=== PATIENT | female | born 1950 | race Caucasian/White ===

== ENCOUNTER 2022-05-06 09:45 | Outpatient (RCR) | payer MEDICARE, BC, SELFPAY | END 2022-09-10 15:07 | disposition home or self-care (01) | PROVIDERS: PCP Family Medicine; Visit Provider Family Medicine | DX: M79.604 Pain in right leg (principal) | CPT/HCPCS: 97110 ==

== ENCOUNTER 2022-10-05 09:45 | Outpatient (RCR) | payer MEDICARE, BC, SELFPAY ==
--- NOTE | 2022-06-30 14:00 | PT.OPEX ---
PT [place] Outpatient Eval PT [facility] Outpatient Eval Start: 06/30/22 07:18 Freq: Status: Active Protocol: Document 06/30/22 13:55 NAHOMY (Rec: 06/30/22 13:59 [email or web address] [id number]) E-signed By Vicki Victor PT Physical Therapy Outpatient Evaluation Insurance Information Recert Due Date 09/22/22 Insurance Name Medicare B Medical Diagnosis Rt Shoulder Rotator Cuff Tendonitis Treating Diagnosis Rt Shoulder Pain, Reduced ease of ADL's and self cares Reduced repetitive Rt shoulder use Referring MD Dr Curt Saldana Subjective Subjective Kaye reports having pain again in her Rt shoulder since December of 2021. I did most of the work on our boat, as my was having some health issues. She denies any accident or incident which may have caused symptoms, but wear and tear/over use. Pain is constant but varies per task. Pain is increased with reaching overhead and back - like into back seat, reaching out to the side is not as bad, but seems like most movements hurt. It improves with rest, some self stretching and ice use. I take Tylenol. I can sleep unless I roll over onto either side. 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 I have a very difficult time painting. Cooking is difficult, as I cannot lift more than a few pounds very easily. Straining, lifting from stove, etc. Cleaning is difficult - but we have a cleaning person and my helps. Vacuum is the hardest. I do have some N/T and arthrtic pain in hands, but I have chronic neck issues, so more related to chronic pain vs shoulder issues. I am very active and this limits my participation in yoga (any weight into UE I cannot do). The pain follows the lateral aspect of shoulder and upper arm, as well as the inside of my elbow. Pain Comments Pain is Date of Last Physician Visit 06/22/22 Occupation Painting/artist so I would love to be able to paint at least 2 hours minimum per day (not weekends) Preferred Name Kaye Precautions Treatment Precautions/Contraindications PMHX of LBP with Laminectomy in 1999. Chronic CX Pain Lt shoulder Scope 2006 Weight Bearing Status Full Weight Bearing Therapy Limitations/Systems Review Vision Objective Range of Motion Rt involved shoulder AROM: FF 0-140 /ABD0-135 / ER 0-90 / IR 0-20 / EXT0-54 Rt shoulder PROM: WNL and pain free Lt shoulder AROM is WNL and pain free Strength Lt shoulder MMT normal 5/5 with the excepion of FF 4/5 Rt shoulder was 5/5 in neutral . Did not assess in gravity resisted planes due to pain Palpation Minimal hypertonicity at pect major/minor and UT Sensitive to moderate palpation pressure at biceps long head and supraspinatus tendons. Also at trigger points of med scap Balance & Gait Slightly reduced arm swing Rt shoulder Posture Good posture Sensation/Reflexes Normal biceps DTR, symmetric to Lt Assessment Assessment/Impression 71 yo with DX of Rt Shoulder Tendonitis per MRI reading from 06/18/22. She previously had a Rt Shoulder Arthroscopy with SAD/DCE limited Open RCR 08/21/2008 (and Lt shoulder RCR scope 2005). She arrived to dept this date via IND ambulation, slightly reduced arm swing Rt involved/dominant arm. She has limited AROM - grossly 50% of normal Rt shoulder, PROM is WNL and without pain. Good DTR. Sensitive to touch at supraspinatus tendon and biceps long head. Hypertonicity at UT, pect major and minor. She has good functional movement (IR) hand behind back to T12, but with moderate pain. Hand behind head (ER) is good, reaching to T2 only minimal pain. She will benefit from continued skilled physical therapy to provide education in progression of stretch/ strength and shoulder stability program. Thank you for this referral. Primary Functional Limitations Shoulder FF AROM 0-140, ABD 0- 135, IR 0-20 deg. Sharp shooting pain with AROM beyond noted ranges - associated with painting, cleaning, cooking, yoga, corey chi, dressing, cooking. Pain also with sleeping. Plan of Care Rehabilitation Potential Good Physical Therapy Goals In 4-6 visits, Kaye will be able to: 1. IND in HEP with emphasis on pace, alignment and reps/HOLD times 2. Reduced pain overall by at least 50% with all arm use 3. Don/doff clothing overhead without compensatory movements 4. Repetitive use of Rt UE for at least 2 hours light / mod use (painting, cooking) 5. Sleep up to 6 hours without awakening secondary to shoulder pain greater than 3/ 10 90% of the time. In 8-10 visits, Kaye will be able to: 1. [place] / Rt UE unlimited use for repetitive tasks of ADL's and home/self cares. 2. Return to PLOF with corey chi and yoga/UE weight bearing with ex and cleaning tasks. 3. Pain free full Normal AROM Rt shoulder Coordination/Communication With Referral Source Treatment Plan/Direct Interventions Ice/Cold/Vasopneumatic,Joint Mobilization,Manual Therapy, Neuromuscular Re-ed,Self-Care/ Home Management,Therapeutic Activities,Therapeutic Exercises Frequency/Duration 1X/Wk for 12 visits Patient Will Be Discharged From Therapy Completion of LTG(s),Skills Plateau,Independent w/HEP, Independently Progressing Evaluation Billing Untimed Code Treatment Minutes 25 Complexity Moderate Certification Information Initial Certification Date 06/30/22 Ending Certification Date 09/22/22 Provider Signature Shows Agreement With POC & Medical Necessity Physician Signature & Date Requested Please Sign/Date Here Physician Comment/Change : Physician NPI Number #
== END 2022-10-07 16:16 | disposition home or self-care (01) ==
PROVIDERS: PCP Family Medicine; Visit Provider Orthopaedic Surgery Sports Medicine
DX: M75.81 Other shoulder lesions, right shoulder (principal); Z51.89 Encounter for other specified aftercare
CPT/HCPCS: 97110; 97140; 97162

== ENCOUNTER 2023-12-20 10:25 | Emergency (ER) | payer MEDICARE, BC, SELFPAY ==
[2023-12-20 10:29] VITALS: BP 148/86; PULSE 89; RESP 18; TEMP 36.5; O2SAT 98; BMI 18.8
--- NOTE | 2023-12-20 10:54 | ED.GENADULT ---
HPI - General Adult General Chief complaint: Cough Stated complaint: cough,congestion Time Seen by Provider: 12/20/23 10:35 History of Present Illness HPI narrative: seen in urgent care over the weekend for cough. meds for pneum and sinus infection . continues to feel well, more tired , cough is loosening, no fevers. referred to ED by clinic. janee ortiz 73 year old woman presenting to the ER with concern of continued cough. Particular alarming is that she has a shoulder surgery on the left scheduled for 2 weeks from now. Really once whatever is going on ?knocked out?. She does note a history of ?bronchial pneumonia? and worried that this might be going on again. Did review records from when she was seen 3 days ago. Chest x-ray looked clear by my read. Was initiated on 5 days of doxycycline concern of potential pneumonia along with 3 days of 20 mg of prednisone daily with complaint of a pressure. She has been also taking ?Mucinex?. Did take a few doses of ?Sudafed?; the sounds to have been pseudoephedrine. Her coughing seems to be coming more from her chest. Does describe some Nathaniel's of coughing. She is just quite tired, fatigued and worried about this. Admits to having had poor sleep as well. Has not had a fever. Related Data Home Medications ?Medication ?Instructions ?Recorded ?Confirmed calcium carbonate 600 mg-vitamin 1 tab PO DAILY 06/22/22 12/18/23 D3 10 mcg (400 unit) tablet estradiol 0.075 mg/24 hr weekly 1 patch transdermal QWEEK 06/22/22 12/18/23 transdermal patch turmeric 400 mg capsule mg PO 06/22/22 12/18/23 vitamin B complex (B 1 tab PO QDAY 06/22/22 12/18/23 Complex-Vitamin B12 tablet) Previous Rx's ?Medication ?Instructions ?Recorded albuterol sulfate 90 mcg/actuation 2 inh inhalation QID PRN #1 ea 12/20/23 breath activated powder inhaler benzonatate 200 mg capsule 100 - 200 mg (0.5 - 1 x 200 mg) PO 12/20/23 TID PRN cough from throat #30 caps codeine 10 mg-guaifenesin 100 mg/5 5 - 10 ml PO Q4-6H PRN cough #120 12/20/23 mL oral liquid (Guaifenesin AC) mL doxycycline monohydrate 100 mg 100 mg PO DAILY 4 days #8 caps 12/20/23 capsule prednisone 20 mg tablet 20 mg PO DAILY #10 tabs 12/20/23 Allergies Allergy/AdvReac Type Severity Reaction Status Date / Time aspirin Allergy GI bleed Verified 12/18/23 14:24 celecoxib Allergy Headache Verified 12/18/23 14:24 ibuprofen Allergy GI bleed Verified 12/18/23 14:24 naproxen Allergy GI bleed Verified 12/18/23 14:24 NSAIDS (Non-Steroidal Allergy GI bleed Verified 12/18/23 14:24 Anti-Inflamma penicillin V Allergy Rash Verified 12/18/23 14:24 rofecoxib Allergy oral ulcers Verified 12/18/23 14:24 suture Allergy Verified 12/18/23 14:24 Review of Systems Status of ROS: Reports: 6 or more systems reviewed and unremarkable except as noted in History and below PFSH PFSH Medical History Benign tumor of breast ?D24.9 - Benign neoplasm of unspecified breast (ICD-10) Surgical History H/O hernia repair ?Z98.890 - Other specified postprocedural states (ICD-10) ?Z87.19 - Personal history of other diseases of the digestive system (ICD-10) History of back surgery ?Z98.890 - Other specified postprocedural states (ICD-10) History of total vaginal hysterectomy (TVH) ?Z90.710 - Acquired absence of both cervix and uterus (ICD-10) Status post arthroscopy of left shoulder (02/02/06) ?Z98.890 - Other specified postprocedural states (ICD-10) Status post arthroscopy of right shoulder (08/21/08) ?Z98.890 - Other specified postprocedural states (ICD-10) Family History Maternal Grandmother Bleeding disorder Mother Stroke Father Parkinson disease Social History Smoking Status: Former smoker What tobacco products do you use: cigarettes Smoking quit date/years: >15 years ago Do you use any of these nicotine containing products: None Second hand tobacco smoke exposure: No Are you now , , , , never or living with a partner: Social isolation score (0-1 are the most socially isolated patients): 1 Exam Narrative: Exam Narrative: Very pleasant. Intermittent small cough. Sounds congested in the nasopharynx. Little uncomfortable over the maxillary sinus laterally. TMs are clear. Lungs with some crepitus in the lower lung gustafson bilaterally. No wheeze on initial auscultation. Heart in regular rate and rhythm without murmur rub or gallop. Extremities are well perfused. Without edema. Oropharynx is moist. Trace cobblestoning in the posterior oropharynx. Neck is supple without lymphadenopathy. Const: Vital Signs, click to edit/add: Vital Signs - 24 hr 12/20/23 10:29 Temperature 97.7 F Pulse Rate [Right Pulse Oximeter] 89 Respiratory Rate 18 Blood Pressure [Ri ght Upper Arm] 148/86 H Pulse Oximetry 98 Oxygen Delivery Me thod Room Air Documenting provider has reviewed patient's vital signs: yes Course Vital Signs Vital signs: Initial Vital Signs Temperature 97.7 F 12/20/23 10:29 Temperature Source Temporal Artery Scan 12/20/23 10:29 Pulse Rate 89 12/20/23 10:29 Respiratory Rate 18 12/20/23 10:29 Blood Pressure 148/86 H 12/20/23 10:29 Blood Pressure Mean 106 H 12/20/23 10:29 Blood Pressure Position Sitting 12/20/23 10:29 Pulse Oximetry 98 12/20/23 10:29 Oxygen Delivery Method Room Air 12/20/23 10:29 Vital Signs Temperature 97.7 F 12/20/23 10:29 Pulse Rate 89 12/20/23 10:29 Respiratory Rate 18 12/20/23 10:29 Blood Pressure 148/86 H 12/20/23 10:29 Pulse Oximetry 98 12/20/23 10:29 Oxygen Delivery Method Room Air 12/20/23 10:29 Temperature 97.7 F 12/20/23 10:29 Pulse Rate 89 12/20/23 10:29 Respiratory Rate 18 12/20/23 10:29 Blood Pressure 148/86 H 12/20/23 10:29 Pulse Oximetry 98 12/20/23 10:29 Oxygen Delivery Method Room Air 12/20/23 10:29 Medications Administered Medications: Discontinued Medications Generic Name Dose Route Start Last Admin Trade Name Jake PRN Reason Stop Dose Admin Albuterol/Ipratropium 1 neb 12/20/23 11:19 12/20/23 11:37 Iprat-Albut 0.5-2.5 Mg/3 Ml Neb IH 12/20/23 11:20 1 neb ONCE ONE Administration Medical Decision Making MDM Narrative Medical decision making narrative: Certainly many potential causes for fatigue. Does appear to have a viral URI possible ?bronchitis?. Does have a nebulizer at home. Has not used it in ages. We can trial a nebulization and see if that helps her feel better helps with the cough a little bit. I think it some combination of inflammation in her lungs. Given new findings on auscultation here today would go ahead repeat chest x-ray. Check basic labs looking for electrolyte abnormalities or anemia or further evidence of infection. Did give a DuoNeb. Did seem to help on reassessment. Labs show elevated CRP but normal white count. Sodium slightly low at 131. This might be dilutional revealed on further conversation. Chest x-ray reviewed by me remains without clear infiltrate. Radiology over-read as below Study:?XRay-Chest PORTABLE-12/20/2023 12:08:50 PM Ordering Physician:KEVIN Final Report: INDICATION: COUGH, WEAKNESS. TECHNIQUE: Chest 1 view. COMPARISON: 12/18/23. FINDINGS: Cardiovascular and mediastinum: Cardiomediastinal silhouette is within normal limits. Lungs and pleural spaces: Lungs are clear. No evidence of pleural effusion. No pneumothorax identified. Bones and soft tissues: Unremarkable. IMPRESSION: No acute cardiopulmonary process identified. No significant interval change. No further events during time in the emergency department. See patient discharge plan further discussion/plan Lab Data Lab results reviewed: Yes I reviewed the patient's lab results Labs: Lab Results 12/20/23 12/20/23 Range/Units 12:56 Unknown WBC 10.48 (4.50-11.00) K/uL RBC 3.95 L (4.00-5.20) m/uL Hgb 13.1 (12.0-16.0) gm/dL Hct 38.7 (33.0-51.0) % MCV 98 (80-100) fL MCH 33 (26-34) pg MCHC 34 (32-36) gm/dL RDW Coeff of [place] 12.4 (11.5-15.5) % Plt Count 290 (140-440) K/uL Neut % (Auto) 90.5 H (42.0-72.0) % Lymph % (Auto) 6.6 L (20-44) % [place] % (Auto) 2.6 (0.0-11.0) % Eos % (Auto) 0.1 (0.0-7.0) % Baso % (Auto) 0.0 (0.0-3.0) % Neut # (Auto) 9.50 H (1.7-7.0) K/uL Lymph # (Auto) 0.70 L (0.90-2.90) K/uL [place] # (Auto) 0.30 (0.00-0.90) K/UL Eos # (Auto) 0.01 (0.00-0.50) K/uL Baso # (Auto) 0.00 (0.00-0.30) K/uL Abs Immat Gran (auto) 0.02 (0.00-0.30) K/uL Imm/Tot Granulo (auto) 0.2 % Sodium 131 L (135-149) mmol/L Potassium 3.6 (3.6-5.1) mmol/L Chloride 99 (96-114) mmol/L Carbon Dioxide 25 (20-32) mmol/L Anion Gap 7 (7-15) mEq/L BUN 13 (7-30) mg/dL Creatinine 0.5 (0.5-1.5) mg/dL Estimated Creat Clear 36.40 Estimated GFR 98 ml/min Glucose 148 H (60-115) mg/dL Calcium 9.5 (8.4-10.6) mg/dL C-Reactive Protein 2.6 H (0.5-1.0) mg/dL SARS-CoV-2 (PCR) Negative SARS-CoV-2 (Negative) Influenza Type A (PCR) Negative PCR FLU A (Negative) Influenza Type B (PCR) Negative PCR FLU B (Negative) RSV (PCR) Negative PCR RSV (Negative) Discharge Plan Discharge Clinical Impression: Hyponatremia, Bronchitis Patient Disposition: Home w/ Parent or Adult Condition: Stable Additional Instructions: I think it is good you are focusing on hydration. You shouldn't need to drink more than 2-3 L of water a day. I am not sure that your current intake is responsible for the lower sodium nor do I think that that sodium level is contributing to your fatigue. Take this nebulization tubing and cup with you. You can use it with your nebulizer and albuterol if you find it helpful. You can also nebulized distilled water just for the moist air; this also can help with cough. Consider use of menthol vapors otherwise. Half a tsp of honey can be helpful. Pseudoephedrine for drying and decongestion; this can also help with post-nasal drip. Sucking on ice chips can help with cough. Might sleep under the mist of a cool mist humidifier. Prescribing cough medicine, continuing course of prednisone and continuing course of doxycycline from [facility]. Take copies of your labs with you for follow-up/preop appointment. Prescriptions: New doxycycline monohydrate 100 mg capsule 100 mg PO DAILY 4 Days Qty: 8 0RF Rx Instructions: continue after current course prednisone 20 mg tablet 20 mg PO DAILY Qty: 10 0RF albuterol sulfate 90 mcg/actuation aerosol powdr breath activated 2 inh inhalation QID PRNQty: 1 0RF codeine-guaifenesin [Guaifenesin AC] 10-100 mg/5 mL liquid 5 - 10 ml PO Q4-6H PRN (Reason: cough) Qty: 120 0RF benzonatate 200 mg capsule 100 - 200 mg PO TID PRN (Reason: cough from throat) Qty: 30 0RF No Action estradiol 0.075 mg/24 hr patch weekly 1 patch transdermal QWEEK Patient Comments: APPLY 1 APPLY TO CLEAN,DRY HAIRLESS SKIN ONCE WEEKLY vitamin B complex [B Complex-Vitamin B12] Tablet 1 tab PO QDAY calcium carbonate-vitamin D3 600 mg-10 mcg (400 unit) tablet 1 tab PO DAILY turmeric 400 mg capsule PO Follow Up/Referrals: Rosmery Villeda DO [Primary Care Provider] - Stand Alone Forms: MyHealth Info Instructions
--- NOTE | 2023-12-20 11:19 | XR_ITS ---
Patient: SILVINO DIMAS Facility:?[facility] Patient ID:?[id number] Site Patient ID:?[id number]. Site :?[id number] Study:?XRay-Chest PORTABLE-12/20/2023 12:08:50 PM Ordering Physician:KEVIN Final Report: INDICATION: COUGH, WEAKNESS. TECHNIQUE: Chest 1 view. COMPARISON: 12/18/23. FINDINGS: Cardiovascular and mediastinum: Cardiomediastinal silhouette is within normal limits. Lungs and pleural spaces: Lungs are clear. No evidence of pleural effusion. No pneumothorax identified. Bones and soft tissues: Unremarkable. IMPRESSION: No acute cardiopulmonary process identified. No significant interval change. Dictated by Lexus Vanegas MD @ 12/20/2023 12:31:28 PM Signed by:?Lexus Vanegas MD @12/20/2023 12:31:28 PM (Electronic Signature)
--- OUTSIDE RECORDS SUMMARY | 2023-12-20 11:24 | XMS_ITS | Clinical Summary ---
Author Name Unknown Organization [facility] Address [address] [place] [address] Care Team Providers Care Senior It Business Analyst Name Role Phone Elsewhere, Pcp Primary Care Provider Unavailabl e Source Comments Patient records contain information from all sites at [facility]. For routine questions regarding patient records, call [phone] during business hours, M-F 8:00 AM - 5:00 PM Central Time. Record requests for emergency care only can be directed to [phone] at any time.[facility] Allergies Active Allergy Reactions Criticality Noted Date Comments Aspirin GI bleeding 03/05/2015 Celecoxib Headache Low 03/05/2015 Ibuprofen Other (see comments),GI bleeding High 10/31/2007 Asprin Asprin Naproxen GI bleeding High 03/05/2015 Nsaids (Non-Steroidal Anti-Inflammatory Drug) Other (see comments),GI bleeding High 03/05/2015 Penicillins Rash Low 10/31/2007 Rofecoxib Other (see comments) Low 03/05/2015 Medications Medication Sig Dispensed Refills Start Date End Date Status VITAMIN B COMPLEX ORAL Take 1 tablet by mouth daily. W/Vitamin C 12/03/2016 Active estradioL (CLIMARA) 0.075 mg/[address] 1 patch on the skin once a week. 07/11/2020 Active cholecalciferol (VITAMIN D3) 125 mcg (5,000 Unit) capsule Take 1 capsule by mouth daily. 07/20/2013 Active TURMERIC ORAL Take 500 mg by mouth daily. 06/14/2022 Active mometasone (ELOCON) 0.1 % cream Apply topically to affected area(s) once daily. 06/07/2022 Active diclofenac sodium (VOLTAREN) 1 % gel Apply topically daily as needed. Active [id number] C ORAL Take by mouth. 1000 mg calcium daily w/magnesium and zinc Active Active Problems Problem Noted Date Diagnosed Date Painful Total Joint Arthroplasty Initial 024 Pain Thumb Left 05/26/2021 Hypertension 08/29/2013 Encounters Date Type Department Care Team Description 10/06/2023 Orders Only Preoperative Evaluation Center in [place], [place] [address] [place] [address] Erum Greene MPAS, P.A.-C. Preanesthetic Medical Exam (Primary Dx) 10/06/2023 Orders Only Preoperative Evaluation Center in [place], [place] [address] [place] [address] Erum Greene MPAS, P.A.-C. Allergy Penicillin Antibiotic Personal History (Primary Dx) from Last 3 Months Immunizations Name Administration Dates Next Due HZV (ZOSTAVAX) 07/23/2013 Influenza Split 04/25/2013 Tdap 10/31/2007 Social History Tobacco Use Types Packs/Day Years Used Date Smoking Tobacco: Former Cigarettes Q uit: 1975 Passive Smoke Exposure: Past Smokeless Tobacco: Never Tobacco Cessation:Counseling Given: Not Answered Humiliation, Afraid, Rape, and Kick questionnair e Answer Date Recorded Within the last year, have y ou been afraid of your partner or ex-partner? No 10/04/2022 Within the last year, have y ou been humiliated or emotionally abused in other ways by your partner or ex-partner? No Within the last year, have y ou been kicked, hit, slapped, or otherwise physically hurt by your partner or ex-partner? No 10/04/2022 Within the last year, have y ou been raped or forced to have any kind of sexual activity by your partner or ex-partner? No 10/04/2022 Social Connection and Isolat ion Panel [NHANES] Answer Date Recorded In a typical week, how many times do you talk on the phone with family, friends, or neighbors? Once a week 10/04/2022 How often do you get togethe r with friends or relatives? Once a week 10/04/2022 How often do you attend chur ch or gnosticist services? 1 to 4 times per year 10/04/2022 Do you belong to any clubs o r organizations such as restorationist groups, unions, fraternal or athletic groups, or school groups? Yes 10/04/2022 How often do you attend meet ings of the clubs or organizations you belong to? More than 4 times per year 10/04/2022 Are you , , di vorced, , never , or living with a partner? 10/04/2022 AUDIT-C Answer Date Recorded Q1: How often do you have a drink containing alc ohol? 2-3 times a week 10/04/2022 Q2: How many drinks containi ng alcohol do you have on a typical day when you are drinking? 1 or 2 10/04/2022 Q3: How often do you have si x or more drinks on one occasion? Never 10/04/2022 Overall Financial Resource Strain (CARDIA) Answe r Date Recorded How hard is it for you to pa y for the very basics like food, housing, medical care, and heating? Not hard at all 10/04/2022 [facility] of Occupat ional Health - Occupational Stress Questionnaire Answer Date Recorded Do you feel stress - tense, restless, nervous, or anxious, or unable to sleep at night because your mind is troubled all the time - these days? Only a little 10/04/2022 Exercise Vital Sign Answer Date Recorde d On average, how many days pe r week do you engage in moderate to strenuous exercise (like a brisk walk)? 5 days 10/04/2022 On average, how many minutes do you engage in exercise at this level? 50 min 10/04/2022 Hunger Vital Sign Answer Date Recorded Within the past 12 months, y ou worried that your food would run out before you got the money to buy more. Never true 10/04/19 23 Within the past 12 months, t he food you bought just didn't last and you didn't have money to get more. Never true 10/04/2022 PRAPARE - Transportation Answer Date Re corded In the past 12 months, has l ack of transportation kept you from medical appointments or from getting medications? No 09/09 In the past 12 months, has l ack of transportation kept you from meetings, work, or from getting things needed for daily living? No 10/04/2022 Housing Stability Vital Sign Answer Abdi e Recorded In the last 12 months, was t here a time when you were not able to pay the mortgage or rent on time? No 10/04/2022 In the last 12 months, how many places have you lived? 1 10/04/2022 In the last 12 months, was t here a time when you did not have a steady place to sleep or slept in a residential (including now)? No 10/04/2022 Nutrition Answer Date Recorded Nutrition: EVOO Fat Source Yes 10/04 On average, how many serving s of fruits and vegetables do you eat per day (serving size is equal to 1 cup or approximately the size of a tennis ball)? 4-5 10/04/2022 Dental Answer Date Recorded Dental: Regular Dentist Yes 08/15/19 Employment Answer Date Recorded Employment status Retired 10/04/2022 Education Answer Date Recorded What is the highest level of school you have completed or the highest degree you have received? Master's degree (e.g., MA, MS, Kanwal, MEd, BUSINESS PERFORMANCE SPECIALIST, [employer]) 01/07/2021 Sex and Gender Information Value Date Recorded Sex Assigned at Female 04/03/2021 10:50 AM CDT Gender Identity Female 04/03/2021 10:50 AM CDT Sexual Orientation Not on file Last Filed Vital Signs Vital Sign Reading Time Taken Comments Blood Pressure 136/85 07/24/2013 8:45 AM JUDGE Vital sign result from Clinical Notes. Pulse 56 07/24/2013 8:45 AM JUDGE Vital sign result from Clinical Notes. Temperature - - Respiratory Rate - - Oxygen Saturation - - Inhaled Oxygen Concentration - - Weight 48.3 kg (106 lb 7.7 oz) 08/24/2016 10:03 AM JUDGE Vital sign result from CDM. Height 158 cm (5' 2.21) 08/24/2016 10: 03 AM JUDGE Vital sign result from CDM. Body Mass Index 19.35 08/24/2016 10:03 AM JUDGE Plan of Treatment Upcoming Encounters Date Type Department Care Team (Latest Contact Info) Description 12/30/2023 10:00 AM CDT Clinical Communication Virtual Review in [place], [place] [address] [place] [address] 01/03/2024 6:50 AM CDT Appointment Department of Laboratory Medicine and Pathology, [facility] in [place], [place] [address] [place] [phone] Erum Greene MPAS, P.A.-C. [address] [place] [phone] 01/03/2024 7:15 AM CDT Appointment Department of Radiology, [facility], in [place], [place] [address] [place] [phone] Snow Stewart M.D. [address] [place] [phone] 01/03/2024 8:15 AM CDT Office Visit Department of Orthopedic Surgery in [place], [place] [address] [place] [phone] Hector Gonzales M.D. [address] [place] [phone] 01/03/2024 9:00 AM CDT Comprehensive Visit Preoperative Evaluation Center in [place], [place] [address] [place] [phone] Snow Stewart M.D. [address] [place] [phone] 01/03/2024 10:30 AM CDT Appointment Department of Radiology, [facility], in [place], [place] [address] [place] [phone] Snow Stewart M.D. [address] [place] [phone] 01/03/2024 12:45 PM CDT Clinical Support Division of Allergic Diseases in [place], [place] [address] [place] [phone] Erum Greene, ABRIL, P.A.-C. [address] [place] [phone] 01/03/2024 1:30 PM CDT Comprehensive Visit Division of Allergic Diseases in [place], [place] [address] [place] [phone] Lynsey Aguillon M.D. [address] [place] [phone] 01/04/2024 9:37 AM CDT Hospital Encounter RST RO 02 4 AM ADMIT [address] [place] [phone] Hector Gonzales M.D. [address] [place] [phone] 01/04/2024 9:37 AM CDT - 01/04/2024 12:21 PM CDT Surgery RST RO MAIN OR [address] [place] [address] Hector Gonzales M.D. [address] [place] [phone] ARTHROPLASTY REPLACEMENT TOTAL SHOULDER Scheduled Procedures Name Priority Associated Diagnoses Date/Ti me ARTHROPLASTY REPLACEMENT TOTAL SHOULDER Painful Total Joint Arthroplasty Initial 01/04/2024 9:37 AM CDT Health Maintenance Due Date Last Done Comments Bone Density Scan (Osteoporo sis Screen) 1949 CT Colonography 1950 Cologuard 1950 FIT 1950 Hepatitis C Screening 1950 Office Visit for Blood Press ure Check / Re-check 1949 Depression Screening (Annual PHQ-2) 08/08/2023 Fall Risk Screen (Annual) 08/08/2023 COVID-19 Vaccine (2022-09 4 season) 2023 05/10/2023, 02/01/2023, 04/30/2022, Additional history exists Mammogram 08/02/2024 08/02/2023, 07/09, 11/13/2021, Additional history exists Fasting Glucose for Diabetes Screening 08/05/2026 08/05/2023, 10/22/2021, 05/07/2020, Additional history exists Colonoscopy 10/04/2029 10/04/2019, 08/2009 (Performed elsewhere) Colorectal Cancer Screening 10/04/2029 DTaP,Tdap,and Td Vaccines (3 - Td or Tdap) 06/12/2032 06/12/2022, 10/31/2007, 03/17/1998 Pneumococcal vaccine (65+ years) Completed 04/29/20, 02/19/2016 Zoster Vaccines Completed 01/15/2021, 06/09, 05/21/2014, Additional history exists Influenza Vaccine Completed 05/10/2023, , 06/03/2021, Additional history exists Procedures Procedure Name Priority Date/Time Associated Diagnosis Comments EXTI BASIC METABOLIC PANEL, S/P Routine 08/05/2023 9:37 AM JUDGE BI BREAST SCREENING BILATERAL WITH TOMOSYNTHESIS RAD - Routine (most inpatients and all outpatients) 08/02/2023 9:30 AM JUDGE from Last 3 Months or Most Recently Relevant to Health Maintenance Care Teams Senior It Business Analyst Relationship Specialty Start Date End Date Elsewhere, Pcp PCP - General Internal Medicine 10/01/22
--- OUTSIDE RECORDS SUMMARY | 2023-12-20 11:25 | XMS_ITS ---
Author Name Unknown Organization [facility] Address [address] [place] [address] Care Team Providers Care Senior Medical Technologist Name Role Phone Unavailable Unavailable Unavailable Surgery Details Not on file Complications Check Surgery Details section. Procedure Estimated Blood Loss Check Surgery Details section. Procedure Findings Check Surgery Details section. Procedure Specimens Taken Check Surgery Details section.
--- OUTSIDE RECORDS SUMMARY | 2023-12-20 11:25 | XMS_ITS | Encounter Summary ---
Author Name Unknown Organization [facility] Address [address] [place] [id number] Care Team Providers Care Licensed Land Surveyor Name Role Phone Elsewhere, Pcp Primary Care Provider Unavailabl e Encounter Details Date Type Department Care Team (Late st Contact Info) Description 10/06/2023 Orders Only Preoperative Evaluation Center in [place], [place] [address] [place] [phone] Erum Greene, ABRIL, P.A.-C. [address] [place] [phone] Preanesthetic Medical Exam (Primary Dx) Social History Tobacco Use Types Packs/Day Years Used Date Smoking Tobacco: Former Cigarettes Q uit: 1974 Passive Smoke Exposure: Past Smokeless Tobacco: Never Humiliation, Afraid, Rape, and Kick questionnair e [...] often do you attend chur ch or congregation services? 1 to 4 times per year 10/04/2022 Do you belong to any clubs o r organizations such as zoroastrianism groups, unions, fraternal or athletic groups, or [...] and heating? Not hard at all 10/04/2022 [facility] of Occupat ional Health - Occupational Stress [...] place to sleep or slept in a chcf (including now)? No 10/04/2022 Nutrition Answer Date [...] Master's degree (e.g., MA, MS, Kanwal, MEd, GAS CUTTER, TRICE) 01/07/2021 Sex and Gender Information Value Date Recorded Sex Assigned at Female 04/03/2021 10:50 AM CDT Gender Identity Female 04/03/2021 10:50 AM CDT Sexual Orientation Not on file documented as of this encounter Plan of Treatment Upcoming Encounters Date Type Department Care Team (Latest Contact Info) Description 12/30/2023 10:00 AM CDT Clinical Communication Virtual Review in [place], [place] [address] [place] [address] 01/03/2024 6:50 AM CDT Appointment Department of Laboratory Medicine and Pathology, [facility], in [place], [place] [address] [place] [phone] Erum Greene, LAURIS, P.A.-C. [address] [place] [phone] 01/03/2024 7:15 AM CDT Appointment Department of Radiology, [facility], in [place], [place] [address] [place] [address] Snow Stewart M.D. [address] [place] [phone] 01/03/2024 8:15 AM CDT Office Visit Department of Orthopedic Surgery in [place], [place] [address] [place] [phone] Hector Gonzales M.D. [address] [place] [phone] 01/03/2024 9:00 AM CDT Comprehensive Visit Preoperative Evaluation Center in [place], [place] [address] [place] [phone] Snow Stewart M.D. [address] [place] [phone] 01/03/2024 10:30 AM CDT Appointment Department of Radiology, [facility], in [place], [place] [address] [place] [address] Snow Stewart M.D. [address] [place] [phone] 01/03/2024 12:45 PM CDT Clinical Support Division of Allergic Diseases in [place], [place] [address] [place] [phone] Erum Greene MPAS, P.A.-C. [address] [place] [phone] 01/03/2024 1:30 PM CDT Comprehensive Visit Division of Allergic Diseases in [place], [place] [address] [place] [phone] Lynsey Aguillon M.D. [address] [place] [phone] 01/04/2024 9:37 AM CDT Hospital Encounter RST RO 02 4 AM ADMIT [address] [place] [address] Hector Gonzales M.D. [address] [place] [phone] 01/04/2024 9:37 AM CDT - 01/04/2024 12:21 PM CDT Surgery [facility] MAIN OR [address] [place] [address] Hector Gonzales M.D. [address] [place] [phone] ARTHROPLASTY REPLACEMENT TOTAL SHOULDER Scheduled Orders Name Type Priority Associated Diagnoses Orde r Schedule Type and Screen (with Reflex Antibody ID) Lab Routine Preanesthetic Medical Exam Expected: 10/06/2023, Expires: 10/05/2025 Scheduled Procedures Name Priority Associated Diagnoses Date/Ti me ARTHROPLASTY REPLACEMENT TOTAL SHOULDER Painful Total Joint Arthroplasty Initial 01/04/2024 9:37 AM CDT documented as of this encounter Visit Diagnoses Diagnosis Painful Total Joint Arthroplasty Initial- Primary Preanesthetic Medical Exam- Primary Painful Total Joint Arthroplasty Initial documented in this encounter Care Teams Licensed Land Surveyor Relationship Specialty Start Date End Date Elsewhere, Pcp PCP - General Internal Medicine 10/01/22 documented as of this encounter
--- OUTSIDE RECORDS SUMMARY | 2023-12-20 11:25 | XMS_ITS | Clinical Summary ---
Author Name Unknown [facility] Address [address] [place] [address] Care Team Providers Care Housekeeper And Laundry Assistant Name Role Phone Eleni Deleon MD Primary Care Provider U navailable Source Comments You are receiving this document as you are listed as the primary care provider,follow-up provider, or the patient has been referred to you for consultation.This is in compliance with the Medicare and[facility] EHR Incentive Program,which states Providers who transition their patient to another setting of careor provider of care or refers their patient to another provider of care shouldprovide summary care record for each transition of care or referral. [facility] Allerg[facility] Active Allergy Reactions Criticality Noted Date Comments Penicillins 04/11/2013 Medications Medication Sig Dispensed Refills Start Date End Date Status Ascorbic Acid (VITAMIN C OR) Take by mouth. 04/11/2013 Active ATENOLOL OR Take by mouth. 04/11/2013 Active Cyanocobalamin (VITAMIN B-12 OR) Take by mouth. 04/11/2013 Act jesica Calcium Citrate-Vitamin D (CALCITRATE/VITAMIN D OR) Take by mouth. 04/11/2013 Active cholecalciferol (AKA VITAMIN D3) 1000 UNITS tablet Take 1,000 Units by mouth daily (every 24 hours). 04/11/2013 Active omega-3 fatty acids (FISH OIL) 1000 MG capsule Take 1 capsule by mouth daily (every 24 hours). 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 Social History Tobacco Use Types Packs/Day Years Used Date Smoking Tobacco: Never Alcohol Use Standard Drinks/Week Comments Yes 0 (1 standard drink = 0.6 oz pur e alcohol) Sex and Gender Information Value Date Recorded Sex Assigned at Not on file Gender Identity Not on file Sexual Orientation Not on file Last Filed Vital Signs Vital Sign Reading Time Taken Comments Blood Pressure - - Pulse - - Temperature - - Respiratory Rate - - Oxygen Saturation - - Inhaled Oxygen Concentration - - Weight 46.7 kg (103 lb) 04/11/2013 2:58 PM CDT Height 161.3 cm (5' 3.5) 04/11/2013 2:58 PM CDT Body Mass Index 17.96 04/11/2013 2:58 PM CDT Plan of Treatment Health Maintenance Due Date Last Done Comments Colon Cancer Screening Plan Due 1950 Hep C Screening (Preventive Services) 1950 Medicare Annual Wellness Visit 1950 Mammogram 1950 Cholesterol 1994 Dexa 2014 COVID-19 Vaccine ( season) 2023 04/30/2022, 11/23/2021, 05/21/2021, Additional history exists Influenza (Season Ended) 2024 022, 06/03/2021, 05/07/2020, Additional history exists DTaP/Tdap/Td (3 - Tdap) 06/12/2032 06/12/20 22, 10/31/2007, 03/17/1998 Pneumococcal 65+ Yrs Completed 04/29/2017, 02/19/20 16 Zoster/Shingles Completed 01/15/2021, 06/09, 05/21/2014, Additional history exists HepA Aged Out No longer eligi ble based on patient's age to complete this topic HepB Aged Out No longer eligi ble based on patient's age to complete this topic Hib Aged Out No longer eligi ble based on patient's age to complete this topic IPV (Polio) Aged Out No longer eligi ble based on patient's age to complete this topic MCV4 Aged Out No longer eligi ble based on patient's age to complete this topic Care Teams Housekeeper And Laundry Assistant Relationship Specialty Start Date End Date Eleni Deleon MD PCP - General 03/21/13
--- OUTSIDE RECORDS SUMMARY | 2023-12-20 11:25 | XMS_ITS | Clinical Summary ---
Author Name Unknown Organization [facility] Address [place], [place] [address] Care Team Providers Care Supervisor Long Goods Name Role Phone Rosmery Villeda Primary Care Provider [phone] Allergies Active Allergy Reactions Criticality Noted Date Comments Aspirin GI Bleeding 03/05/2015 Celecoxib Headache Low 03/05/2015 Ibuprofen Bleeding 10/31/2007 Asprin Naproxen GI Bleeding High 03/05/2015 Nsaids (Non-Steroidal Anti-Inflammatory Drug) Bleeding 04/02/2015 Penicillins 10/31/2007 Rofecoxib Other - Describe In Comment Field Low 03/05/2015 Medications Medication Sig Dispensed Refills Start Date End Date Status vitamin B complex (B-COMPLEX VITAMIN) tablet Take 1 tablet by mouth once daily. 0 12/03/2016 Active calcium carbonate (CALCIUM 600) 600 mg calcium (1,500 mg) tablet Take 1,000 mg by mouth once daily with a meal. 0 11/19/2019 Active cholecalciferol (Vitamin D) 1,000 unit capsule Take 2,000 units by mouth once daily. 0 06/14/2022 Active medication order composer Tumeric capsule daily. Unsure of dose. 0 06/14/2022 Active estradiol 0.075 mg/24 hr (CLIMARA) 0.075 mg/24 hr patchIndications:Post menopausal syndrome APPLY TO CLEAN,DRY HAIRLESS SKIN ONCE WEEKLY 12 Patch 4 07/18/2023 Active Active Problems Problem Noted Date Diagnosed Date Asymmetrical sensorineural hearing loss 07/05/20 22 Flushing 01/12/2013 Vitamin D deficiency 06/29/2010 Routine general medical exam ination at a health care facility 06/16/2010 Overview: dexa normal 2006, recheck in 3-5 years. Minimal change 2010. Consider recheck in 5 years. Eleni Deleon M.D. 07/04/2012 2:17 PM Rectocele 06/16/2010 Elevated BP 06/16/2010 Papanicolaou smear of cervix with atypical squamous cells of undetermined significance (ASC-US) 10/31/2007 Overview: hpv negative 2009. Routine screening for follow up. Symptomatic menopausal or female climacteric sta jessica 10/31/2007 Resolved Problems Problem Noted Date Diagnosed Date Resolved Date Osteoarthrosis, unspecified whether generalized or localized, unspecified site 08/14/2008 Encounters Date Type Department Care Team Description 12/20/2023 Nurse Triage [facility] [address] [place] [address] Rosmery Villeda, Shortness Of Breath (Constant SHORTNESS OF BREATH at rest and exertional) from Last 3 Months Immunizations Name Administration Dates Next Due AMB Influenza, IIV3 (Age >=3 years)(Flu Clinic O nly) 04/25/2013,07/30/2009 COVID-19 vaccine (Moderna 100mcg/0.5mL) PF, MDV 05/21/2021 COVID-19 vaccine (Pfizer-Bio NTech 30mcg/0.3mL) 12YO+ ASHISH-SUCROSE PF, MDV 11/23/2021 COVID-19 vaccine (Pfizer-BioNTech 30mcg/0.3mL) P F, MDV 11/08/2020,10/07/2020 Influenza Virus, Unspecified 05/23/2002,06/27/20 01 Influenza, High-dose Inactivated 05/12/2016 Influenza, High-dose Quadrivalent Inactivated ,06/03/2021 Influenza, IIV3 (Age 6-35 mos) 07/30/2009 Influenza, IIV3 (Age >=3 years) 07/13/2005 Influenza, IIV4 05/21/2014,05/15/2014 Influenza, Inactivated AIIV4 (Age 65+ Years) Preserv Free 04/14/2022,05/07/2020 Influenza, Inactivated IIV3 (Age 65+ Years) Preserv Free 11/06/2018,04/29/2017 Pneumococcal Poly,23-Valent (Pneumovax) 04/29/20 17 Pneumococcal conj 13-Valent (Prevnar 13) 016 RSV, Recombinant ADJ Reconst ituted (Arexvy 120MCG/0.5mL) 07/01/2023 Rabies Vaccine 03/08/2015 Td (Age >=7 Years) 03/17/1998 Tdap 06/12/2022,10/31/2007 Zoster (Shingrix-RZV, recombinant) 01/15/2021, Zoster (Zostavax-ZVL, live) 05/21/2014, 3 Family History Medical History Relation Name Comments Hyperlipidemia Father Osteoporosis Mother Other Mother osteoporosis Hyperlipidemia Sister Other Sister osteopenia Cancer No Family History Cancer-breast No Family History Cancer-colon No Family History Cancer-ovarian No Family History Cancer-prostate No Family History Relation Name Status Comments Father Mother Sister Social History Tobacco Use Types Packs/Day Years Used Date Smoking Tobacco: Former Cigarettes Q uit: 08/08/1975 Smokeless Tobacco: Never Tobacco Cessation:Counseling Given: Yes Alcohol Use Standard Drinks/Week Comments Yes 0 (1 standard drink = 0.6 oz pur e alcohol) once a week PHQ-2 Answer Date Recorded PHQ-2 TOTAL SCORE 0 07/18/2023 Social Connections Answer Date Recorded Frequency of Communication with Friends and Fami ly Not on file 12/22/2022 Financial Resource Strain Answer Date R ecorded Difficulty of Paying Living Expenses 3 12/18/2021 Difficulty of Paying Living Expenses Not on file 12/18/2021 Food Insecurity Answer Date Recorded Worried About Running Out of Food in the Last Ye ar 1 12/18/2021 Transportation Needs Answer Date Record ed Lack of Transportation (Medical) 1 12/18/2021 Housing Stability Answer Date Recorded Unable to Pay for Housing in the Last Year 1 12/18/2021 Sex and Gender Information Value Date Recorded Sex Assigned at Female 06/21/2021 10:59 PM VIDEO EDITING INTERN Gender Identity Female 06/21/2021 10:59 PM VIDEO EDITING INTERN Sexual Orientation Straight 06/21/2021 10 :59 PM VIDEO EDITING INTERN Obstetrics History Para Term AB IAB SAB Ectopic Multiple Livin g Live Births 2 2 0 0 0 0 0 0 0 0 Date Outcome GA Total Labor Labor/2nd/3rd Weight Sex Delivery Anes PTL Suze A1 A5 Name Cl in Para Para Last Filed Vital Signs Vital Sign Reading Time Taken Comments Blood Pressure 138/70 07/18/2023 2:10 PM VIDEO EDITING INTERN man ual Pulse 73 07/18/2023 1:17 PM VIDEO EDITING INTERN Temperature 36.4 ??C (97.5 ??F) 10/19/2021 3:00 PM CD T Respiratory Rate - - Oxygen Saturation 100% 07/18/2023 1:17 PM VIDEO EDITING INTERN Inhaled Oxygen Concentration - - Weight 49 kg (108 lb) 07/18/2023 1:17 PM VIDEO EDITING INTERN Height 157.5 cm (5' 2) 07/18/2023 1:17 PM VIDEO EDITING INTERN Body Mass Index 19.75 07/18/2023 1:17 PM VIDEO EDITING INTERN Plan of Treatment Health Maintenance Due Date Last Done Comments Influenza for age 65+ 04/08/2024 05/10/2023 , 04/14/2022, 06/03/2021, Additional history exists BMI (ht and wt on same day) for age 18+ 07/18/2024 07/18/2023, 01/26/2023, 10/19/2021, Additional history exists Depression screening for age 12+ 07/18/2024 07/18/2023, 10/22/2021, 10/20/2021, Additional history exists Medicare Wellness for age 65+ 07/18/2024, 10/19/2021, 04/29/2017 Mammogram for age 45-75 08/02/2024 08/02/20 23, 11/13/2021, 03/28/2020, Additional history exists Lipids for age 45-75 08/05/2028 08/05/2023, 10/22/2021, 10/23/2019, Additional history exists Colonoscopy through age 75 10/04/202910/04, 10/04/2019, 10/04/2019, Additional history exists Tetanus booster 06/12/2032 06/12/2022, 10/07, 03/17/1998 DEXA/DXA scan for age 65+ Completed 2014, 04/13/2011, 07/25/2007, Additional history exists Pneumococcal series for age 65+ Completed 7, 02/19/2016 Fecal testing non-DNA (FIT,FOBT,iFOBT) for age 45-75 Discontinued 07/20/2018 (Completed o utside of Priya) Zoster (shingles) series for age 50+ Completed 01/15/2021, 06/30/2020, 05/21/2014, Additional history exists Hepatitis C screening for ag e 18-79 Completed 10/22/2021 Tdap Completed 06/12/2022, 10/31/2007 COVID-19 vaccine series Completed 05/10/20, 02/01/2023, 04/30/2022, Additional history exists Procedures Procedure Name Priority Date/Time Associated Diagnosis Comments LIPID PANEL W REFLEX MEASURED LDL Routine 08/05/2023 9:37 AM VIDEO EDITING INTERN Lipid screening XR MAMMO GEMMA BILAT SCREEN Routine 08/02/2023 9:30 AM VIDEO EDITING INTERN Breast cancer screening by mammogram ANTI HCV Routine 10/22/2021 9:27 AM CDT Need for hepatitis C screening test COLONOSCOPY SCREENING Routine 10/04/2019 10:59 AM VIDEO EDITING INTERN Screening for colon cancer XR DXA BONE DENSITY 2 SITES AXIAL Routine 02/18/2015 8:53 AM CDT Osteopenia from Last 3 Months or Most Recently Relevant to Health Maintenance Results * (ABNORMAL) LIPID PANEL W REFLEX MEASURED LDL (08/05/2023 9:37 AM VIDEO EDITING INTERN) CHOLESTEROL,TOTAL 341(H) 100 - 199 mg/dL 08/05/2023 6:52 PM VIDEO EDITING INTERN [facility] Comment: Cholesterol, Total Reference Ranges Desirable <200 mg/dL Borderline 200-239 mg/dL High >=240 mg/dL TRIGLYCERIDES 74 <150 mg/dL 08/05/2023 6:52 PM VIDEO EDITING INTERN [facility] HDL CHOLESTEROL 117 >40 mg/dL 6:52 PM VIDEO EDITING INTERN [facility] NON-HDL CHOLESTEROL 224(H) <145 mg/dl 08/05/2023 6:52 PM VIDEO EDITING INTERN [facility] CHOL/HDL RATIO 2.91 <4.50 08/05/2023 6:52 PM VIDEO EDITING INTERN [facility] LDL CHOLESTEROL 209(H) <=130 mg/dL 08/05/2023 6:52 PM VIDEO EDITING INTERN [facility] VLDL CHOLESTEROL 15 <=30 mg/dL 08/05/2023 6:52 PM VIDEO EDITING INTERN [facility] PROVIDER ORDERED STATUS RANDOM 08/05/2023 6:52 PM VIDEO EDITING INTERN [facility] Blood BLOOD SPECIMEN / Unknown Venipuncture / Unknown 08/05/2023 9:37 AM VIDEO EDITING INTERN 08/05/2023 9:37 AM VIDEO EDITING INTERN Rosmery Villeda DO CHEMISTRY [facility] [address] [place] [address], * XR MAMMO GEMMA BILAT SCREEN [[id number]] (08/02/2023 9:30 AM VIDEO EDITING INTERN) Anatomical Region Laterality Modality BREASTS, Breast Left, Breast Right Bilateral Mammography Impressions 08/02/2023 10:49 AM VIDEO EDITING INTERN ??There is no radiographic evidence for malignancy. ??Recommend annual mammograms. MAMMOGRAM ASSESSMENT: ??ACR 1 Negative PATIENTS: You will also receive a letter with your examination results in an easy to read format. ??If you have questions about your results, please contact your referring provider. Narrative 08/02/2023 10:49 AM VIDEO EDITING INTERN For Patients: As a result of the 21st Century Cures Act, medical imaging exams and procedure reports are released immediately into your electronic medical record. You may view this report before your referring provider. If you have questions, please contact your health care provider. XR MAMMO GEMMA BILAT SCREEN [[id number]] CLINICAL HISTORY: ??This is an asymptomatic 72 y.o. patient. INDICATION FOR EXAM: Mammogram Screening. TECHNIQUE: CC & MLO views were obtained. ??This study was evaluated with the assistance of Computer-Aided Detection. Breast Tomosynthesis was used in interpretation. COMPARISON FILM: Yes 11/13/21 [facility] 08/11/17 [facility] FINDINGS: ??The breasts are heterogeneously dense, which may obscure small masses. There are no dominant masses, suspicious micro calcifications or areas of architectural distortion. Rosmery Villeda DO MAMMO * ANTI HCV (10/22/2021 9:27 AM CDT) HEPATITIS C ANTIBODY Non-React jesica Non-React jesica 10/22/2021 4:44 PM CDT [facility] Comment:Antibodies to HCV no t detected; does not exclude the possibility of exposure to HCV. Blood BLOOD SPECIMEN / Unknown Venipuncture / Unknown 10/22/2021 9:27 AM CDT 10/22/2021 9:28 AM CDT Rosmery Villeda DO SEND OUTS [facility] [address] [place] [address], * COLONOSCOPY SCREENING (10/04/2019 10:59 AM VIDEO EDITING INTERN) Rosmery Villeda DO GI PROCEDURE ORD * (ABNORMAL) XR DXA BONE DENSITY 2 SITES (02/18/2015 8:53 AM CDT) Anatomical Region Laterality Modality Spine, HIPS, HIPL, HIPR Other Narrative 02/19/2015 11:38 AM CDT Please see scanned document for results of this study. Scotty Urrutia MD DEXA from Last 3 Months or Most Recently Relevant to Health Maintenance Care Teams Supervisor Long Goods Relationship Specialty Start Date End Date Rosmery [place] [address] PCP - General Family Practice 01/13/17
--- OUTSIDE RECORDS SUMMARY | 2023-12-20 11:25 | XMS_ITS | Referral Summary ---
Author Name Unknown Organization [facility] Address [address] [place] [address] Care Team Providers Care Nurse Consultant Name Role Phone Elsewhere, Pcp Primary Care Provider Unavailabl e Source Comments Patient records contain information from all sites at [facility]. For routine questions regarding patient records, call [phone] during business hours, M-F 8:00 AM - 5:00 PM Central Time. Record requests for emergency care only can be directed to [phone] at any time.[facility] Encounters Date Type Department Care Team Description 10/06/2023 Orders Only Preoperative Evaluation Center in [place], [place] [address] [place] [address] Erum Greene MPAS, P.A.-C. Preanesthetic Medical Exam (Primary Dx) 10/06/2023 Orders Only Preoperative Evaluation Center in [place], [place] [address] [place] [address] Erum Greene MPAS, P.A.-C. Allergy Penicillin Antibiotic Personal History (Primary Dx) from Last 3 Months Allergies Active Allergy Reactions Criticality Noted Date [...] gel Apply topically daily as needed. Active [id number] C ORAL Take by mouth. 1000 mg calcium daily w/magnesium and zinc Active Active Problems Problem Noted Date Diagnosed Date Painful Total Joint Arthroplasty Initial 024 Pain Thumb Left 05/26/2021 Hypertension 08/29/2013 Immunizations Name Administration Dates Next Due HZV [...] often do you attend chur ch or confucianism services? 1 to 4 times per year 10/04/2022 Do you belong to any clubs o r organizations such as caodaism groups, unions, fraternal or athletic groups, or [...] and heating? Not hard at all 10/04/2022 [facility] - Occupational Stress [...] place to sleep or slept in a custodial (including now)? No 10/04/2022 Nutrition Answer Date [...] Master's degree (e.g., MA, MS, Kanwal, MEd, ASBESTOS SHINGLE INSPECTOR, TRICE) 01/07/2021 Sex and Gender Information Value Date Recorded Sex Assigned at Female 04/03/2021 10:50 AM CDT Gender Identity Female 04/03/2021 10:50 AM CDT Sexual Orientation Not on file Last Filed Vital Signs Vital Sign Reading Time Taken Comments Blood Pressure 136/85 07/24/2013 8:45 AM SALES PLANNING MANAGER Vital sign result from Clinical Notes. Pulse 56 07/24/2013 8:45 AM SALES PLANNING MANAGER Vital sign result from Clinical Notes. Temperature - - Respiratory Rate - - Oxygen Saturation - - Inhaled Oxygen Concentration - - Weight 48.3 kg (106 lb 7.7 oz) 08/24/2016 10:03 AM SALES PLANNING MANAGER Vital sign result from CDM. Height 158 cm (5' 2.21) 08/24/2016 10: 03 AM SALES PLANNING MANAGER Vital sign result from CDM. Body Mass Index 19.35 08/24/2016 10:03 AM SALES PLANNING MANAGER Plan of Treatment Upcoming Encounters Date Type Department Care Team (Latest Contact Info) Description 12/30/2023 10:00 AM CDT Clinical Communication Virtual Review in [place], [place] [address] [place] [address] 01/03/2024 6:50 AM CDT Appointment Department of Laboratory Medicine and Pathology, [facility] in [place], [place] [address] [place] [phone] Erum Greene MPAS, P.A.-C. [address] [place] [phone] 01/03/2024 7:15 AM CDT Appointment [facility] in [place], [place] [address] [place] [phone] Snow Stewart M.D. [address] [place] [phone] 01/03/2024 8:15 AM CDT Office Visit Department of Orthopedic Surgery in [place], [place] [address] [place] [phone] Hector Gonzales M.D. [address] [place] [phone] 01/03/2024 9:00 AM CDT Comprehensive Visit Preoperative Evaluation Center in [place], [place] [address] [place] [phone] Snow Stewart M.D. [address] [place] [phone] 01/03/2024 10:30 AM CDT Appointment Department of Radiology, [facility] in [place], [place] [address] [place] [phone] Snow Stewart M.D. [address] [place] [phone] 01/03/2024 12:45 PM CDT Clinical Support Division of Allergic Diseases in [place], [place] [address] [place] [phone] Erum Greene, ABRIL, P.A.-C. [address] [place] [phone] 01/03/2024 1:30 PM CDT Comprehensive Visit Division of Allergic Diseases in [place], [place] [address] [place] [phone] Lynsey Aguillon M.D. [address] [place] [phone] 01/04/2024 9:37 AM CDT Hospital Encounter RST RO 02 4 AM ADMIT [address] [place] [phone] Hector Gonzales M.D. [address] [place] [phone] 01/04/2024 9:37 AM CDT - 01/04/2024 12:21 PM CDT Surgery RST RO MAIN OR [address] [place] [address] Hector Gonzales M.D. [address] [place] [phone] ARTHROPLASTY REPLACEMENT TOTAL SHOULDER Scheduled Procedures Name Priority Associated Diagnoses Date/Ti me ARTHROPLASTY REPLACEMENT TOTAL SHOULDER Painful Total Joint Arthroplasty Initial 01/04/2024 9:37 AM CDT Procedures Procedure Name Priority Date/Time Associated Diagnosis Comments EXTI BASIC METABOLIC PANEL, S/P Routine 08/05/2023 9:37 AM SALES PLANNING MANAGER BI BREAST SCREENING BILATERAL WITH TOMOSYNTHESIS RAD - Routine (most inpatients and all outpatients) 08/02/2023 9:30 AM SALES PLANNING MANAGER from Last 3 Months or Most Recently Relevant to Health Maintenance Care Teams Nurse Consultant Relationship Specialty Start Date End Date Elsewhere, Pcp PCP - General Internal Medicine 10/01/22
--- OUTSIDE RECORDS SUMMARY | 2023-12-20 11:25 | XMS_ITS | Encounter Summary ---
Author Name Unknown Organization [facility] Address [address] [place] [address] Care Team Providers Care Co Teacher Name Role Phone Elsewhere, Pcp Primary Care Provider Unavailabl e Reason for Referral * Outpatient (Routine) - Authorized Specialty Diagnoses / Procedures Referred By Contac t Referred To Contact Diagnoses Allergy Penicillin Antibiotic Personal History Procedures Penicillin Skin Test Erum Greene MPAS, P.A.-Gall[place] [address] [place] [phone] [facility] Referral ID Status Reason Start Date Expiration Date V isits Requested Visits Authorized [id number] Authorized 10/06/2023 10/05/2024 1 1 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 [address] [place] [phone] [facility] Referral ID Status Reason Start Date Expiration Date V isits Requested Visits Authorized [id number] Authorized 10/06/2023 04/06/2025 1 1 Scheduling Instructions HAIDER request - Please schedule before surgery [employer]ICIAN [employer]HOU[employer] Encounter Details Date Type Department Care Team (Late st Contact Info) Description 10/06/2023 Orders Only Preoperative Evaluation Center in [place], [place] [address] [place] [address] Erum Greene MPAS, P.A.-C. [address] [place] [address] Allergy Penicillin Antibiotic Personal History (Primary Dx) Social History Tobacco Use Types [...] 10/04/2022 How often do you attend chur or rastafari services? 1 to 4 times per year 10/04/2022 Do you belong to any clubs o r organizations such as synagogue groups, unions, fraternal or athletic groups, or [...] and heating? Not hard at all 10/04/2022 [facility] - Occupational Stress Questionnaire Answer Date Recorded [...] place to sleep or slept in a nursing home (including now)? No 10/04/2022 Nutrition Answer Date [...] Master's degree (e.g., MA, MS, Kanwal, MEd, MACHINE TOOL MECHANIC, TRICE) 01/07/2021 Sex and Gender Information Value Date Recorded Sex Assigned at Female 04/03/2021 10:50 AM CDT Gender Identity Female 04/03/2021 10:50 AM CDT Sexual Orientation Not on file documented as of this encounter Plan of Treatment Upcoming Encounters Date Type Department Care Team (Latest Contact Info) Description 12/30/2023 10:00 AM CDT Clinical Communication Virtual Review in [address] [phone] 01/03/2024 6:50 AM CDT Appointment Department of Laboratory Medicine and Pathology, [facility] in [address] [phone] Erum Greene, LAURIS, P.A.-C. [address] [place] [phone] 01/03/2024 7:15 AM CDT Appointment Department of Radiology, [facility] in [address] [phone] Snow Stewart M.D. [address] [place] [phone] 01/03/2024 8:15 AM CDT Office Visit Department of Orthopedic Surgery in [address] [phone] Hector Gonzales M.D. [address] [place] [phone] 01/03/2024 9:00 AM CDT Comprehensive Visit Preoperative Evaluation Center in [place], [place] [address] [place] [phone] Snow Stewart M.D. [address] [place] [phone] 01/03/2024 10:30 AM CDT Appointment Department of Radiology, [facility], in [place], [place] [address] [place] [phone] Snow Stewart M.D. [address] [place] [phone] 01/03/2024 12:45 PM CDT Clinical Support Division of Allergic Diseases in [place], [place] [address] [place] [phone] Erum Greene, [facility], P.A.-C. [address] [place] [phone] 01/03/2024 1:30 PM CDT Comprehensive Visit Division of Allergic Diseases in [place], [place] [address] [place] [phone] Lynsey Aguillon M.D. [address] [place] [phone] 01/04/2024 9:37 AM CDT Hospital Encounter RST ROEI 02 4 AM ADMIT [address] [place] [phone] Hector Goznales M.D. [address] [place] [phone] 01/04/2024 9:37 AM CDT - 01/04/2024 12:21 PM CDT Surgery [facility] MAIN OR [address] [place] [address] Hector Gonzales M.D. [address] [place] [address], [place] [phone] ARTHROPLASTY REPLACEMENT TOTAL SHOULDER Scheduled Orders Name Type Priority Associated Diagnoses Orde r Schedule Penicillin Skin Test Procedures Routine Allergy Penicillin Antibiotic Personal History Expected: 01/03/2024 (Approximate), Expires: 01/03/2025 Scheduled Procedures Name Priority Associated Diagnoses Date/Ti me ARTHROPLASTY REPLACEMENT TOTAL SHOULDER Painful Total Joint Arthroplasty Initial 01/04/2024 9:37 AM CDT Scheduled Referrals Name Type Priority Associated Diagnoses Order Schedule Allergy and Immunology - Penicillin allergy consult (clinic) Outpatient Referral Routine Allergy Penicillin Antibiotic Personal History Expected: 01/03/2024 (Approximate), Expires: 01/03/2025 documented as of this encounter Visit Diagnoses Diagnosis Painful Total Joint Arthroplasty Initial- Primary Allergy Penicillin Antibiotic Personal History- Primary Painful Total Joint Arthroplasty Initial documented in this encounter Care Teams Co Teacher Relationship Specialty Start Date End Date Elsewhere, Pcp PCP - General Internal Medicine 10/01/22 documented as of this encounter
[2023-12-20] MEDS: IPRAT-ALBUT 0.5-2.5 MG/3 ML NEB 1 NEB IH (11:37)
[2023-12-20 12:50] LABS: PCR FLU A Negative PCR FLU A (Negative); PCR FLU B Negative PCR FLU B (Negative); PCR RSV Negative PCR RSV (Negative); SARS PCR* Negative SARS-CoV-2 (Negative)
[2023-12-20 13:05] LABS: Eosinophils Absolute Auto 0.01 K/uL (0.00-0.50); Eosinophils Percent Auto 0.1 % (0.0-7.0); Hematocrit 38.7 % (33.0-51.0); Hemoglobin* 13.1 gm/dL (12.0-16.0); Immature Granulocytes Abs Auto 0.02 K/uL (0.00-0.30); Immature Granulocytes Pct Auto 0.2 %; Lymphocytes Percent Auto 6.6 % (20-44); Mean Corpuscular HGB Conc 34 gm/dL (32-36); Mean Corpuscular Hemoglobin 33 pg (26-34); Mean Corpuscular Volume 98 fL (80-100); Monocytes Percent Auto 2.6 % (0.0-11.0); Neutrophils Percent Auto 90.5 % (42.0-72.0); Platelet Count* 290 K/uL (140-440); RDW Coefficient of Variation % 12.4 % (11.5-15.5); Red Blood Count 3.95 m/uL (4.00-5.20); White Blood Count* 10.48 K/uL (4.50-11.00)
[2023-12-20 13:08] LABS: Slide Review Reflex No
[2023-12-20 13:19] LABS: Chloride* 99 mmol/L (96-114); Potassium* 3.6 mmol/L (3.6-5.1); Sodium* 131 mmol/L (135-149)
[2023-12-20 13:22] LABS: Creatinine* 0.5 mg/dL (0.5-1.5); Estimated Glomerular Filt Rate 98 ml/min
[2023-12-20 13:23] LABS: Anion Gap 7 mEq/L (7-15); Blood Urea Nitrogen* 13 mg/dL (7-30); Calcium* 9.5 mg/dL (8.4-10.6); Carbon Dioxide* 25 mmol/L (20-32); Glucose* 148 mg/dL (60-115)
[2023-12-20 13:26] LABS: C Reactive Protein* 2.6 mg/dL (0.5-1.0)
== END 2023-12-20 14:47 | disposition home or self-care (01) ==
PROVIDERS: Emergency Provider Family Medicine; PCP Family Medicine
DX: J02.0 Streptococcal pharyngitis (principal); E87.1 Hypo-osmolality and hyponatremia
CPT/HCPCS: 36415; 71045; 80048; 85025; 86140; 87631; 94640; 99284

== ENCOUNTER 2024-01-26 12:56 | Outpatient (CLI) | payer MEDICARE, BC, SELFPAY ==
--- OUTSIDE RECORDS SUMMARY | 2024-01-26 13:01 | XMS_ITS | Encounter Summary ---
Author Organization [facility] Address [address] [place] [address] Care Team Providers Care Historic Cl[employer] Costume Maker Name Role Phone Elsewhere, Pcp Primary Care Provider Unavailabl e Encounter Details Date Type Department Care Team (Late st Contact Info) Description 01/04/2024 7:43 AM CDT Anesthesia Event [facility] [address] [place] [address] Westley Nunez D.O. [address] [place] [address] Anesthesia Record Procedure Summary Procedure Name Responsible Anesthesiologist Anesthesia Start Time Anesthesia Stop Time ARTHROPLASTY REPLACEMENT TOTAL SHOULDER. (Right) Westley Nunez D.O. 01/04/24 0743 01/04/24 1015 Events Date Time Event Comment 01/04/2024 0743 An Start Machine/Equipme nt Checked Infection Precautions Followed Procedure/Site Verified NPO Status Verified Supine Standard ASA Monitors Applied 0748 Anesthesia Time Out 0752 Block Start 0755 Block End 0757 An Induction 0800 An Intubation 0801 Turnover to Proceduralist 0845 Proc Start 0853 Quick Note Surgical servic e leaning on BP cuff and patients airway. Notified multiple times by anesthesia 922 Anes CS Handoff I, Derek alexandra, TOBACCO BLENDER, CLIENT SERVICES ADMINISTRATOR, DNAP, attest that I have reconciled the controlled substances and that I have reviewed all the significant information with the next anesthesia provider assuming care of this patient. 45 Proc Fin 0955 Turnover to ANE Staff 1005 Airway Removal Criteria Met 1006 Extubation/Airway Removed 1008 an stop data 1015 An End I completed my handoff to the receiving staff during which we 1. Identified the patient 2. Identified the responsible provider 3. Reviewed the pertinent medical history 4. Discussed the surgical course 5. Reviewed intra-op anesthesia management and issues during anesthesia 6. Set expectations for post-procedure period 7. Allowed opportunity for questions and acknowledgement of understanding. Meds Name Total fentanyl injection 50 mcg/mL 100 mcg lidocaine 2% (mg) injection 60 mg rocuronium 10 mg/mL injection 30 mg succinylcholine 20 mg/mL injection 80 mg phenylephrine 100 mcg/mL injection 500 m cg ePHEDrine PF 5 mg/mL syringe injection 1 5 mg ondansetron 4 mg/2 mL injection 4 mg sugammadex 100 mg/mL injection 100 mg glycopyrrolate 0.2 mg/mL injection 0.2 m g propofol 10 mg/mL infusion 375.56 mg propofol 10 mg/mL injection 120 mg midazolam 1 mg/mL injection 1 mg BUPivacaine (MARCAINE) PF injection 0.5% 5 mL BUPivacaine liposome (EXPAREL) PF inject ion 1.3% 10 mL tranexamic acid in NaCl IVPB 1,000 mg (C YKLOKAPRON) 1 g tranexamic acid in NaCl IVPB 1,000 mg (C YKLOKAPRON) 1 g dexAMETHasone (DECADRON) injection 4 mg/ mL 8 mg ceFAZolin injection 2,000 mg (ANCEF) 2 g Lactated Ringers Free Drip 800 mL * Agents No agents on file. * Blood No blood administrations on file. Lines, Drains, and Airways Type Details Placement Removal Peripheral IV Placement Date: 12/07 05/01; Placement Time: 726; Catheter Size: 20 G; Orientation: Left; Location: Hand 01/04/24726 by Derek Oliver, CHRIS, ANNAMARIA, DNAP Wound 01/04/24; 936; N; I ncision; Shoulder; Anterior, Right 01/04/24936 by Nathaniel Ivey, R.N. documented in this encounter Social History Tobacco Use Types Packs/Day Years Used Date Smoking Tobacco: Former Cigarettes 0.5 6.8 0 10/07/1967 - 06/22/1976 Passive Smoke Exposure: Past Smokeless Tobacco: Never Comments:Situational in late teens early 20s except pregnancies Alcohol Use Standard Drinks/Week Comments Yes 2 (1 standard drink = 0.6 oz pur e alcohol) [facility] Utilities Answer Date Recorded In the past 12 months has th e electric, gas, oil, or water company threatened to shut off services in your home? No 12/27/2023 Humiliation, Afraid, Rape, and Kick questionnair e [...] often do you attend chur ch or yazidi services? 1 to 4 times per year 10/04/2022 Do you belong to any clubs o r organizations such as anglican groups, unions, fraternal or athletic groups, or [...] and heating? Not hard at all 10/04/2022 [facility] [place] of Occupat ional Health - Occupational Stress [...] to strenuous exercise (like a brisk walk)? 7 days 12/27/2023 On average, how many minutes do you engage in exercise at this level? 60 min 12/27/2023 Hunger Vital Sign Answer Date Recorded Within the past 12 months, y ou worried that your food would run out before you got the money to buy more. Never true 12/27/19 24 Within the past 12 months, t he food you bought just didn't last and you didn't have money to get more. Never true 12/27/2023 PRAPARE - Transportation Answer Date Re corded In the past 12 months, has l ack of transportation kept you from medical appointments or from getting medications? No 12/07 In the past 12 months, has l ack of transportation kept you from meetings, work, or from getting things needed for daily living? No 12/27/2023 Nutrition Answer Date Recorded On average, how many serving s of fruits and vegetables do you eat per day (serving size is equal to 1 cup or approximately the size of a tennis ball)? 3-5 12/27/2023 Dental Answer Date Recorded Dental: Regular Dentist Yes 08/15/19 Employment Answer Date Recorded Employment status Retired 12/27/2023 Housing Stability Answer Date Recorded What is your living situation today? I [address] a [place] [address] to live 12/27/2023 Education Answer Date Recorded What is the highest level of school you have completed or the highest degree you have received? Master's degree (e.g., MONY, MS, Kanwal, MEd, JAILER [employer]IE[employer], TRICE) 01/07/2021 Sex and Gender Information Value Date Recorded Sex Assigned at Female 04/03/2021 10:50 AM CDT Gender Identity Female 04/03/2021 10:50 AM CDT Sexual Orientation Not on file documented as of this encounter OR Notes * Anesthesia Postprocedure Evaluation - Samina Mary M.D. - 01/04/2024 10:51 AM CDT Patient: Taisha Ramos Procedure Summary Date: 01/04/24 Room / Location: [place] [address] / [facility] in [place], [place] Anesthesia Start: 742 Anesthesia Stop: 101 Procedure: ARTHROPLASTY REPLACEMENT TOTAL SHOULDER. (Right) Diagnosis: Painful Total Joint Arthroplasty Initial (Painful Total Joint Arthroplasty Initial [T84.84XA, Z96.60].) Providers: Hector Gonzales M.D. Responsible Provider: Westley Nunez D.O. Anesthesia Type: general ASA Status: 2 Anesthesia Type: general Last vitals Vitals Value Taken Time BP 99/66 01/04/24 1045 Temp 36.4 ??C 01/04/24 1015 Pulse 80 01/04/24 1051 Resp 19 01/04/24 1051 SpO2 95 % 01/04/24 1051 Vitals shown include unfiled device data. Please reference Vitals flowsheet for most recent vital signs. Anesthesia Post Evaluation Patient Disposition: general care unit Cardiovascular status: hemodynamics (HR & BP) acceptable Respiratory status: patent airway with spontaneous effort Temperature: normothermic Oxygen requirements: room air Level of consciousness: awake Pain score: pain adequately controlled and/or at baseline Post Op nausea/vomiting: none Hydration status: euvolemic * Anesthesia Procedure Notes - Ang Aguayo M.D. - 01/04/2024 8:09 AM CDT Associated Order(s): Regional Block Regional Block Date/Time: 01/04/2024 7:52 AM Performed by: Ang Aguayo M.D. Authorized by: Westley Nunez D.O. Care team members present 1. Westley Nunez D.O. Location: Pre Op / PACU PROCEDURE DETAILS: Block Indication: post-op pain block Block indication comment: Post-Op pain block at request of surgeon Block Type - Upper extremity: interscalene Positioning: supine Laterality: right Block technique: ultrasound guided Ultrasound image guidance used to localize target, identify at risk structures, and dynamically used to direct therapy to the target. Procedure was performed under sterile conditions.Image(s) acquired and saved Injection technique: single injection Needle type: echogenic Gauge: 22G Length: 5 Test dose: yes- negative test dose Incremental injection of local anesthetic with aspiration every:5cc Pain with needle advancement or injection of local anesthetic: no Injected Medications: Injection(s), anesthetic agent(s) and/or steroid; See MAR Comments: Comments: R/B/A discussed with patient and patient consented to interscalene block. Sedated yet responsive. Using real-time ultrasound-guidance, all relevant neurovascular structures identified for block. Needle advanced real-time with U/S and appropriate spread of local anesthetic confirmed. No pain on injection or with needle advancement. Patient tolerated procedure well without apparent complications. UNIVERSAL PROTOCOL All relevant documentation and testing were reviewed and available. All required blood products, implants, devices and or special equipment were made available as applicable. Pre-procedure verification was conducted and the correct site was marked if required. A fire risk assessment was done as applicable. The procedural time-out to verify correct patient, correct side/site, and procedure was conducted prior to performing the procedure and confirmed in a procedural pause. PRE-PROCEDURE DETAILS: Appropriate hand hygiene, gown, cap, mask, protective eyewear, sterile gloves, skin preparation, sterile drape, and strict aseptic technique were utilized as applicable for the procedure.: yes Skin prep: chlorhexidine / alcohol SEDATION / ANESTHESIA Anesthesia method: local infiltration and minimal sedation (anxiolysis) Local infiltrate type: lidocaine POST-PROCEDURE DETAILS: Procedure completed successfully: successful procedure Notable Events: none ATTESTATION STATEMENT A resident or fellow participated in the procedure, and the financial reporting consultant was present for the entire procedure. * Anesthesia Procedure Notes - Derek Oliver, CHRIS, ANNAMARIA, DNAP - 01/04/2024 8:01 AM CDTAssociated Order(s): Airway Airway Date/Time: 01/04/2024 8:00 AM Performed by: Derek Oliver APRN, CRNA, DNAP Authorized by: Westley Nunez D.O. Patient location during procedure: OR / Procedure Area PROCEDURE DETAILS: Mask difficulty assessment: easy mask Final airway type: direct laryngoscopy, intubation Laryngeal Manipulation: no Final airway difficulty of direct laryngoscopy (DL): 0-easy Final best view of glottic structures - Cormack/Lehane Score: grade 1 Blade type: Rordiguez 2 Tube size: 6.5 ETT distance at teeth/gum: 21 Cuffed: yes Leak Test Performed: no Number of attempt to successful placement: 1 Airway confirmation: bilateral breath sounds, positive ETCO2 and bilateral chest rise Other previous techniques attempted: none PRE PROCEDURE DETAILS: Pre evaluation for airway management: procedure Urgency: elective Preoxygenation: bag valve mask SEDATION / ANESTHESIA Anesthesia method: anesthesia POST PROCEDURE DETAILS: Procedure outcome: successful Notable Events: no complications ATTESTATION STATEMENT A resident or fellow participated in the procedure, and the financial reporting consultant was present for the entire procedure. * Anesthesia Preprocedure Evaluation - Westley Nunez D.O. - 01/04/2024 6:38 AM CDT Preprocedure Anesthesia & H&P Assessment Procedure Summary Date/Time: 01/04/24724 Procedure: ARTHROPLASTY REPLACEMENT TOTAL SHOULDER. (Right) Diagnosis: Painful Total Joint Arthroplasty Initial [T84.84XA, Z96.60] Pre-op diagnosis: Painful Total Joint Arthroplasty Initial [T84.84XA, Z96.60]. Location: [place] [address] / [facility] in [place], [place] Providers: Hector Gonzales M.D. Pertinent components of the patient's history including current problem list, medical history, surgical history, family history, social history, medications and allergies were reviewed. Present illness and pre-op diagnosis were confirmed. The planned surgery / procedure was verified with the patient / legal guardian. The patient's general health condition remains unchanged RELEVANT COMORBID CONDITIONS CV (+) Hypertension Essential Primary OBJECTIVE PHYSICAL EXAMINATION Airway (HEENT) Mallampati: II TM Distance: >3 FB Neck ROM: Full Mouth Opening: >3 cm Cardiovascular Rhythm: Regular Rate: Normal Cardiovascular Assessment: cardiovascular normal Functional Capacity: >4 METS Pulmonary Pulmonary Assessment: Clear General / Constitutional Constitutional Assessment: Normal Neurological Neurologic Assessment: alert Dental Normal ASSESSMENT / PLAN ANESTHESIA PLAN ASA: 2 Anesthesia Plan: general with pain block -PIV, Interscalene block, triple antiemetics Patient seen and allergies reviewed, anesthesia plan and risks discussed directly with patient /legal guardian or through an cut in worker. Risks/Benefits/Alternatives of Blood transfusion discussed with patient / legal guardian, includingan opportunity to ask questions and/or decline some or all transfusion therapies. The patient / legal guardian consented to the use of all blood products, as deemed medically necessary Approval to Proceed: approved for anesthesia Taisha Ramos is a 73 y.o. 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 PMH includes Prior PONV s/p anesthetics which improved w antiemetics Prior airway hx w/ LMA #3 had leak, repeat LMA placement successful with LMA size #4 documented in this encounter Plan of Treatment Not on file documented as of this encounter Procedures Procedure Name Priority Date/Time Associated Diagnosis Comments AIRWAY MANAGEMENT Routine 01/04/2024 8:0 0 AM CDT MD INJ ANES BRACHIAL PLEX W GUIDANCE Routine 01/04/2024 7:52 AM CDT documented in this encounter Results * Airway (01/04/2024 8:00 AM CDT) Narrative Derek Oliver APRN, ANNAMARIA, DNAP - 01/04/2024 8:00 AM CDT Derek Oliver APRN, CRNA, DNAP ? 01/04/2024 ??8:30 AM Airway Date/Time: 01/04/2024 8:00 AM Performed by: Derek Oliver, CHRIS, CLIENT SERVICES ADMINISTRATOR, DNAP Authorized by: Westley Nunez D.O. ?? Patient location during procedure: OR / Procedure Area PROCEDURE DETAILS: Mask difficulty assessment: easy mask Final airway type: direct laryngoscopy, intubation Laryngeal Manipulation: no ?? Final airway difficulty of direct laryngoscopy (DL): 0-easy Final best view of glottic structures - Cormack/Lehane Score: grade 1 Blade type: Rodriguez 2 Tube size: 6.5 ETT distance at teeth/gum: 21 Cuffed: yes Leak Test Performed: no ?? Number of attempt to successful placement: 1 Airway confirmation: bilateral breath sounds, positive ETCO2 and bilateral chest rise Other previous techniques attempted: none PRE PROCEDURE DETAILS: Pre evaluation for airway management: procedure Urgency: elective Preoxygenation: bag valve mask SEDATION / ANESTHESIA Anesthesia method: anesthesia POST PROCEDURE DETAILS: ? Procedure outcome: successful ?? Notable Events: no complications ATTESTATION STATEMENT A resident or fellow participated in the procedure, and the financial reporting consultant was present for the entire procedure. Westley Nunez D.O. ANESTHESIA ORDERABLE S * MD INJ ANES BRACHIAL PLEX W GUIDANCE (01/04/2024 7:52 AM CDT) Narrative Westley Nunez D.O. - 01/04/2024 7:52 AM CDT Ang Aguayo M.D. ? 01/04/2024 ??8:12 AM Regional Block Date/Time: 01/04/2024 7:52 AM Performed by: Ang Aguayo M.D. Authorized by: Westley Nunez D.O. ?? Care team members present 1. Westley Nunez D.O. Location: Pre Op / PACU PROCEDURE DETAILS: Block Indication: post-op pain block ?? Block indication comment: Post-Op pain block at request of surgeon Block Type - Upper extremity: interscalene Positioning: supine ?? Laterality: right Block technique: ultrasound guided ?? Ultrasound image guidance used to localize target, identify at risk structures, and dynamically used to direct therapy to the target. Procedure was performed under sterile conditions.Image(s) acquired and saved Injection technique: single injection Needle type: echogenic Gauge: 22G Length: 5 Test dose: yes- negative test dose ?? Incremental injection of local anesthetic with aspiration every:5cc Pain with needle advancement or injection of local anesthetic: no ?? Injected Medications: Injection(s), anesthetic agent(s) and/or steroid; See MAR Comments: Comments: R/B/A discussed with patient and patient consented to interscalene block. Sedated yet responsive. Using real-time ultrasound-guidance, all relevant neurovascular structures identified for block. Needle advanced real-time with U/S and appropriate spread of local anesthetic confirmed. No pain on injection or with needle advancement. Patient tolerated procedure well without apparent complications. ?? UNIVERSAL PROTOCOL All relevant documentation and testing were reviewed and available. All required blood products, implants, devices and or special equipment were made available as applicable. Pre-procedure verification was conducted and the correct site was marked if required. A fire risk assessment was done as applicable. The procedural time-out to verify correct patient, correct side/site, and procedure was conducted prior to performing the procedure and confirmed in a procedural pause. PRE-PROCEDURE DETAILS: ?? Appropriate hand hygiene, gown, cap, mask, protective eyewear, sterile gloves, skin preparation, sterile drape, and strict aseptic technique were utilized as applicable for the procedure.: yes ?? Skin prep: chlorhexidine / alcohol SEDATION / ANESTHESIA Anesthesia method: local infiltration and minimal sedation (anxiolysis) Local infiltrate type: lidocaine POST-PROCEDURE DETAILS: Procedure completed successfully: successful procedure Notable Events: none ATTESTATION STATEMENT A resident or fellow participated in the procedure, and the financial reporting consultant was present for the entire procedure. Westley Nunez D.O. PROCEDURE/MINOR SURG ICAL ORDERABLES documented in this encounter Visit Diagnoses Not on filedocumented in this encounter Administered Medications Inactive Administered Medications - up to 3 most recent administrations Medication Order MAR Action Action Date Dose Rate Site BUPivacaine liposome (PF) 266 mg/20 mL (13.3 mg/mL) injection (EXPAREL) infiltration, As needed, Starting on Tue01/04/24 at 0755, Anesthesia Intra-op Given 01/04/2024 7:55 AM CDT 10 mL BUPivacaine PF 0.5 % (5 mg/mL) injection (MARCAINE) intrathecal, As needed, Starting on Tue01/04/24 at 0755, Anesthesia Intra-op Given 01/04/2024 7:55 AM CDT 5 mL ceFAZolin injection 2,000 mg (ANCEF) 2,000 mg (rounded from 1,145 mg = 25 mg/kg ? 45.8 kg), intravenous, Once, On Tue01/04/24 at 0730, For 1 dose, Intra-Op, Preoperatively within 1 hour prior to surgical incision If needed, reconstitute vial per package insert instructions. See IVAG for administration guidelines., Drug Monitoring Program: Pharmacist to adjust medication dosing based on indication and drug clearance factors., Indications: Prophylaxis, surgical Given 01/04/2024 8:37 AM CDT 2 g dexAMETHasone injection (DECADRON) intravenous, As needed, Starting on Tue01/04/24 at 0815, Anesthesia Intra-op Given 01/04/2024 8:15 AM CDT 8 mg ePHEDrine (PF) injection intravenous, As needed, Starting on Tue01/04/24 at 0820, Anesthesia Intra-op Given 01/04/2024 9:17 AM CDT 5 mg Given 01/04/2024 9:05 AM CDT 5 mg Given 01/04/2024 8:20 AM CDT 5 mg fentaNYL injection (SUBLIMAZE) intravenous, As needed, Starting on Tue01/04/24 at 0749, Anesthesia Intra-op Given 01/04/2024 8:47 AM CDT 50 mcg Given 01/04/2024 7:49 AM CDT 50 mcg glycopyrrolate injection (ROBINUL) intravenous, As needed, Starting on Tue01/04/24 at 0915, Anesthesia Intra-op Given 01/04/2024 9:13 AM CDT 0.2 mg Lactated Ringer's intravenous, Continuous Infusion: Per Instructions PRN, Starting on Tue01/04/24 at 0743, Anesthesia Intra-op New Bag 01/04/2024 7:43 AM CDT lidocaine (PF) (cardiac) injection intravenous, As needed, Starting on Tue01/04/24 at 0757, Anesthesia Intra-op Given 01/04/2024 7:57 AM CDT 60 mg midazolam (PF) injection (VERSED) intravenous, As needed, Starting on Tue01/04/24 at 0749, Anesthesia Intra-op Given 01/04/2024 7:49 AM CDT 1 mg ondansetron (PF) injection (ZOFRAN) intravenous, As needed, Starting on Tue01/04/24 at 0930, Anesthesia Intra-op Given 01/04/2024 9:30 AM CDT 4 mg phenylephrine injection intravenous, As needed, Starting on Tue01/04/24 at 0820, Anesthesia Intra-op Given 01/04/2024 9:33 AM CDT 100 mcg Given 01/04/2024 9:17 AM CDT 100 mcg Given 01/04/2024 9:05 AM CDT 100 mcg propofol 10 mg/mL infusion (DIPRIVAN) intravenous, Continuous Infusion: Per Instructions PRN, Starting on Tue01/04/24 at 0757, Anesthesia Intra-op Rate/Dose Change 01/04/2024 8:40 AM CDT 75 mcg/kg/min 20.61 mL/hr New Bag 01/04/2024 7:57 AM CDT 100 mcg/kg/min 27.48 mL/ hr propofoL injection (DIPRIVAN) intravenous, As needed, Starting on Tue01/04/24 at 0757, Anesthesia Intra-op Given 01/04/2024 7:57 AM CDT 120 mg rocuronium injection (ZEMURON) intravenous, As needed, Starting on Tue01/04/24 at 0809, Anesthesia Intra-op Given 01/04/2024 8:09 AM CDT 30 mg succinylcholine (PF) injection (ANECTINE) intravenous, As needed, Starting on Tue01/04/24 at 0757, Anesthesia Intra-op Given 01/04/2024 7:57 AM CDT 80 mg sugammadex injection (BRIDION) intravenous, As needed, Starting on Tue01/04/24 at 0947, Anesthesia Intra-op Given 01/04/2024 9:47 AM CDT 100 mg tranexamic acid in NaCl IVPB 1,000 mg (CYKLOKAPRON) 1,000 mg (1 g), intravenous, at 300 mL/hr, Administer over 20 Minutes, Once, On Tue01/04/24 at 0730, For 1 dose, Intra-Op, Administer in OR upon induction Given 01/04/2024 8:10 AM CDT 1 g tranexamic acid in NaCl IVPB 1,000 mg (CYKLOKAPRON) 1,000 mg (1 g), intravenous, at 300 mL/hr, Administer over 20 Minutes, Once, On Tue01/04/24 at 0730, For 1 dose, Intra-Op, Administer in OR just before dropping tourniquet Given 01/04/2024 9:30 AM CDT 1 g documented in this encounter Care Teams Historic Clothing And Costume Maker Relationship Specialty Start Date End Date Elsewhere, Pcp PCP - General Internal Medicine 10/01/22 documented as of this encounter
--- OUTSIDE RECORDS SUMMARY | 2024-01-26 13:01 | XMS_ITS | Encounter Summary ---
Author Organization [facility] Address [address] [place] [address] Care Team Providers Care Guest Experience Captain Name Role Phone Elsewhere, Pcp Primary Care Provider Unavailabl e Encounter Details Date Type Department Care Team (Latest Contact Info) Description 01/04/2024 7:40 AM CDT Ancillary Procedure Department of Anesthesiology Social History Tobacco Use Types Packs/Day Years Used Date Smoking Tobacco: Former Cigarettes 0.5 6.8 0 10/07/1967 - 06/22/1976 Passive Smoke Exposure: Past Smokeless Tobacco: Never Comments:Situational in late teens early 20s except pregnancies Alcohol Use Standard Drinks/Week Comments Yes 2 (1 standard drink = 0.6 oz pur e alcohol) [facility] Utilities Answer Date Recorded In the past 12 months has e [employer], gas, oil, or water [employer] threatened to shut off services in your [...] How often do you attend chur or episcopal services? 1 to 4 times per year 10/04/2022 Do you belong to any clubs o r organizations such as presybeterian groups, unions, fraternal or athletic groups, or [...] and heating? Not hard at all 10/04/2022 [facility] - Occupational Stress [...] your living situation today? I have a [facility] place to live 12/27/2023 Education Answer Date Recorded What is the highest level of school you have completed or the highest degree you have received? 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) 01/07/2021 Sex and Gender Information Value Date Recorded Sex Assigned at Female 04/03/2021 10:50 AM CDT Gender Identity Female 04/03/2021 10:50 AM CDT Sexual Orientation Not on file documented as of this encounter Plan of Treatment Not on file documented as of this encounter Procedures Procedure Name Priority Date/Time Associated Diagnosis Comments ANESTHESIOLOGY IMAGE EXAM Routine 01/04/2024 7:40 AM CDT documented in this encounter Results * Non-Radiology Image-Anesthesiology Image Exam (01/04/2024 7:40 AM CDT) 01/04/2024 7:40 AM CDT Narrative [facility] - 01/04/2024 7:59 AM CDT This order has been created and auto-finalized to support the import of images acquired without order. The clinical documentation to support these images can be found on the encounter that produced images. Provider Not In System IMG NON RAD IMAGI NG PROCEDURES [facility] NA documented in this encounter Visit Diagnoses Not on filedocumented in this encounter Care Teams Guest Experience Captain Relationship Specialty Start Date End Date Elsewhere, Pcp PCP - General Internal Medicine 10/01/22 documented as of this encounter
--- OUTSIDE RECORDS SUMMARY | 2024-01-26 13:01 | XMS_ITS | Encounter Summary ---
Author Organization [facility] Address [address] [place] [address] Care Team Providers Care Screen Maker Name Role Phone Elsewhere, Pcp Primary Care Provider Unavailabl e Reason for Referral * Physical Therapy (Routine) - Authorized Specialty Diagnoses / Procedures Referred By Shiva alonso Referred To Contact Diagnoses Painful Total Joint Arthroplasty Initial Alfonso Hinojosa M.D. [address] [place] [address] Referral ID Status Reason Start Date Expiration Date Visits Requested Visits Authorized [id number] Authorized Patient Preference 01/05/2024 07/06/2025 99 99 * Outpatient (Routine) - Authorized Specialty Diagnoses / Procedures Referred By Shiva alonso Referred To Contact Diagnoses Painful Total Joint Arthroplasty Initial Procedures DX Shoulder Right 2+ Views Alfonso Hinojosa M.D. [address] [place] [address] [facility] Referral ID Status Reason Start Date Expiration Date V isits Requested Visits Authorized [id number] Authorized 01/05/2024 01/04/2025 1 1 Encounter Details Date Type Department Care Team (Latest Contact Info) Description 01/04/2024 5:33 AM CDT - 01/05/2024 1:32 PM CDT Hospital Encounter [facility], [facility], [facility], Ninth [place] [address] [place] [address] Hector Gonzales M.D. [address] [place] [address] Painful Total Joint Arthroplasty Initial (Primary Dx); Pain Shoulder Right [M25.511] Discharge Disposition: Home or Self Care Social History Tobacco Use Types Packs/Day Years Used Date Smoking Tobacco: Former Cigarettes 0.5 6.8 0 10/07/1967 - 06/22/1976 Passive Smoke Exposure: Past Smokeless Tobacco: Never Comments:Situational in late teens early 20s except pregnancies Alcohol Use Standard Drinks/Week Comments Yes 2 (1 standard drink = 0.6 oz pur e alcohol) [facility] Utilities Answer Date Recorded In the past 12 months has Narr[employer], oil, or water [employer] threatened to shut off services in your [...] week 10/04/2022 How often do you attend [facility] or latter day services? 1 to 4 times per year 10/04/2022 Do you belong to any clubs o r organizations such as yarsanism groups, unions, fraternal or athletic groups, or [...] and heating? Not hard at all 10/04/2022 [facility] - Occupational Stress Questionnaire Answer Date Recorded [...] your living situation today? I have a [facility] place to live 12/27/2023 Education Answer Date Recorded What is the highest level of school you have completed or the highest degree you have received? Master's degree (e.g., MA, MS, Kanwal, MEd, [employer], [employer]) 01/07/2021 Sex and Gender Information Value Date Recorded Sex Assigned at Female 04/03/2021 10:50 AM CDT Gender Identity Female 04/03/2021 10:50 AM CDT Sexual Orientation Not on file documented as of this encounter Last Filed Vital Signs Vital Sign Reading Time Taken Comments Blood Pressure 119/75 01/05/2024 12:53 PM CDT Pulse 65 01/05/2024 12:53 PM CDT Temperature 36.6 ??C (97.9 ??F) 01/05/2024 1 2:53 PM CDT Respiratory Rate 16 01/05/2024 12:5 3 PM CDT Oxygen Saturation 96% 01/05/2024 12: 53 PM CDT Inhaled Oxygen Concentration - - Weight 45.8 kg (100 lb 15.5 oz) 01/04/2024 5:52 AM CDT Height 155 cm (5' 1.02) 01/04/2024 5:52 AM CDT Body Mass Index 19.06 01/04/2024 5:52 AM CDT documented in this encounter Discharge Summaries * Alfonso Hinojosa M.D. - 01/05/2024 7:34 AM CDT DISCHARGE SUMMARY BRIEF OVERVIEW Hospital: [facility] Discharge Provider: Hector Gonzales M.D. Primary Team: [facility] Orthopedic Surgery - [facility] Primary Care Providers: Elsewhere, Pcp (General) No address on file Primary Care Provider Phone Number: None Primary Care Provider Fax Number: None Other Providers: None Admission Date: 01/04/2024 Discharge Date: 01/05/2024 PRINCIPAL DIAGNOSIS Painful Total Joint Arthroplasty Initial SECONDARY DIAGNOSES Principal Problem: Painful Total Joint Arthroplasty Initial Resolved Problems: * No resolved hospital problems. * Surgery Information This Encounter Past Procedures (01/05/2023 to Today) Date Procedures Providers Loc / Dept 01/04/2024 ARTHROPLASTY REPLACEMENT TOTAL SHOULDER. Hector Gonzales M.D.Nieboer, Micah J, M.D. [facility] OR DISCHARGE DISPOSITION Home or Self Care [1] ACTIVE ISSUES REQUIRING FOLLOW UP Surgery Information This Encounter Past Procedures (01/05/2023 to Today) Date Procedures Providers Loc / Dept 01/04/2024 ARTHROPLASTY REPLACEMENT TOTAL SHOULDER. Hector Gonzales M.D.Nieboer, Micah J, M.D. [facility] OR OUTPATIENT FOLLOW UP For appointment details refer to your Patient Appointment Guide. TEST RESULTS PENDING AT DISCHARGE Pending Labs None DETAILS OF HOSPITAL STAY REASON FOR ADMISSION Painful Total Joint Arthroplasty Initial HOSPITAL COURSE Taisha Ramos was taken to the operative room by Hollis Ordaz* for the procedure listed above. The intraoperative as well as the immediate postoperative course were uncomplicated. For further details of the surgery please see the operative note. The patient was transferred from the PACU tothe general care floor for continued observation and monitoring. She progressed in the usual post-operative fashion without complications. The patient was treated with perioperative IV antibiotics. She was given liquids by mouth and eventually advanced as tolerated towards a more general diet. Her pain was well controlled with oral pain medications. Physical therapy / Occupational therapy was consulted for assistance with mobilization and gait training. She was mobilizing without difficulty and was compliant with any activity restrictions. Her incision remained intact with no concerns. Her bowel and bladder function were acceptable. She then met criteria for discharge and was later dismissed from the hospital. For any further details please see the [facility] orthopedic surgery progress note and any other co-managing teams dated 01/05/2024. CONSULTS ORDERED DURING THIS ADMISSION None CONDITION AT DISCHARGE stable Discharge instructions were provided to the patient and caregiver(s). Total time spent in discharge services today: 30 minutes. documented in this encounter Discharge Instructions * Attachments The following attachments cannot be sent through Care Everywhere. * Oxycodone, Rapid Release (By mouth) (Mongolian) documented in this encounter Medications at Time of Discharge Medication Sig Dispensed Refills Start Date End Date acetaminophen (TYLENOL) 325 mg tablet Take 2 tablets (650 mg total) by mouth every 4 (four) hours as needed for moderate pain or score 4-6 of 10 or mild pain or score 1-3 of 10. 01/05/2024 ascorbic acid (VITAMIN C ORAL) Take 1 tablet by mouth daily. Vitamin C Complex [id number] ORAL Take 2 tablets by mouth daily. 1000 mg calcium daily w/magnesium and zinc cholecalciferol (VITAMIN D3) 50 mcg (2,000 Unit) capsule Take 50 mcg by mouth daily. codeine-guaiFENesin (ROBITUSSIN-AC) 10-100 mg/5 mL liquid Take 5 mL by mouth every 4 (four) hours as needed for congestion or cough. 12/20/2023 collagen, hydrolysate, bovine, (collagen, hydr, bovine,, bulk,) 100 % powder Take 1 each by mouth daily. Collagen Powder diclofenac sodium (VOLTAREN) 1 % gel Apply topically daily as needed (pain). estradioL (CLIMARA) 0.075 mg/[address] 1 patch on the skin once a week. On Sundays07/11/2020 oxyCODONE (ROXICODONE) 5 mg immediate release tabletIndications:Acut e Pain Take 1 tablet (5 mg total) by mouth every 4 (four) hours as needed for severe pain or score 7-10 of 10 Indication: Acute Pain. 12 tablet 01/05/2024 sennosides-docusate sodium (SENOKOT-S) 8.6-50 mg per tablet Take 1 tablet by mouth 2 (two) times a day. 100 tablet 01/05/2024 VITAMIN B COMPLEX ORAL Take 1 tablet by mouth daily. 12/03/2016 documented as of this encounter Progress Notes * Alfonso Hinojosa M.D. - 01/04/2024 3:47 PM CDT Orthopedic Service: [facility] Admission Day: 01/04/2024 Postoperative Day: 0 PATIENT: Taisha Ramos DATE OF : 1950 Subjective Ms. Ramos was seen in the acute postop setting. Pain is well controlled at this time. Tolerated advancement of her diet. Objective Vitals: 01/04/24 1249 01/04/24 1325 01/04/24 1403 01/04/24 1514 BP: 115/68 116/72 95/63 Patient Position: Sitting Sitting Semi-recumbent Pulse: 70 72 82 Heart Rate: Temp: 36.4 ??C Resp: 16 16 16 Height: Weight: SpO2: 96% 97% 96% TempSrc: Oral Oral Pain Score: 4 3 Pain Location: PHYSICAL EXAMINATION General: Resting comfortably in bed, no acute distress. Musculoskeletal: Postoperative dressing remains in place with no strike through noted. Absent sensation to digits in setting of nerve block; also unable to move digits. Vessels: Hand warm and well perfused Assessment/Plan ASSESSMENT: Taisha Ramos is status post right reverse shoulder arthroplasty PLAN: -- Activity: Shoulder Immobilizer. Physical therapy / Occupational therapy to work on elbow, wrist,finger ROM exercises, shoulder dangling -- Antibiotics: Perioperative cefazolin x2 doses -- Blood: Hemodynamically stable; currently asymptomatic. -- Brace: Shoulder Immobilizer -- Cultures: None. -- Diet: ADAT to general diet per unit protocol -- Drains: None -- DVT Prophylaxis: SCD's and early mobilization. Upper extremity surgery - no DVT chemoprophylaxisindicated. -- Pain: acetaminophen and oxycodone -- Urinary: No urinary catheter -- Disposition: Anticipate discharge to home Active Issues # none Comorbidities Present on Admission Hospital Problems as of 01/04/2024 1. * (Principal) Painful Total Joint Arthroplasty Initial For any questions or concerns from 6 am until 6 pm, please page Dr. Gonzales's service at [phone] any questions or concerns. For urgent matters from 6 pm until 6 am, please page [facility] at [phone]. * Tatianna Hidalgo Pharm.D., R.Ph., [facility] - 01/04/2024 5:58 AM CDT Images from the original note were not included. Admission Medication History Note Medication list source: Patient and Pharmacy or dispense records Medication related information: recently completed albuterol, doxycyline, and prednisone for bronchitis. Prior to Admission Medications Med List Status: Pharmacy Complete Set By: Tatianna Hidalgo Pharm.D., R.Ph., BCPS at 01/04/2024 5:58 AM Taking? Last Dose Informant Start Date End Date LT ascorbic acid (VITAMIN C ORAL) Past Week at a few days ago -- -- -- Take 1 tablet by mouth daily. Vitamin C Complex [id number] ORAL Past Week at a few days ago -- -- -- Take 2 tablets by mouth daily. 1000 mg calcium daily w/magnesium and zinc cholecalciferol (VITAMIN D3) 50 mcg (2,000 Unit) capsule Past Week at a few days ago -- -- -- Take 50 mcg by mouth daily. codeine-guaiFENesin (ROBITUSSIN-AC) 10-100 mg/5 mL liquid Past Week at just got over bronchitis -- 12/20/23 -- Take 5 mL by mouth every 4 (four) hours as needed for congestion or cough. collagen, hydrolysate, bovine, (collagen, hydr, bovine,, bulk,) 100 % powder Past Week at a few days ago -- -- -- Take 1 each by mouth daily. Collagen Powder diclofenac sodium (VOLTAREN) 1 % gel Past Week -- -- -- Apply topically daily as needed (pain). estradioL (CLIMARA) 0.075 mg/24 hr patch has on currently, on right abdomen. -- 07/11/20 -- Place 1 patch on the skin once a week. On Sundays VITAMIN B COMPLEX ORAL Past Week at a few days ago -- 12/03/16 -- Take 1 tablet by mouth daily. documented in this encounter Consult Notes * Jenni Tripp PMaritza., D.P.T. - 01/05/2024 12:24 PM CDT Physical Therapy Inpatient Evaluation/Treatment By co-signing this note, the provider certifies the therapy being provided to this patient is reasonable and necessary for the diagnosis or treatment of this patient. SUBJECTIVE Patient's Name: Taisha Ramos Referring/Attending Provider: Hector Gonzales M.D. Reason for Referral: Physical Therapy Evaluate and Treat Pertinent Medical / Surgical History: Taisha Ramos has a past medical history of Anemia, Anxiety Generalized Disorder (2012), Arthritis, Complication Anesthesia Initial (1984), Concussion Loss Of Consciousness Unspecified Duration Initial (2016), Hyperlipidemia (1999), Hypertension NOS (1999), and Post Operative Nausea/Vomiting. Taisha Ramos has a past surgical history that includes other converted shx (see comment) (N/A, 07/05/2016); operative hysteroscopy (N/A, 08/23/2016); Supracervical hysterectomy (2020); Other surgical history (2005); Hernia repair (1979); Spine surgery (1999); and ARTHROPLASTY REPLACEMENT TOTAL SHOULDER (Right, 01/04/2024). History of Present Illness: Taisha Ramos is a 73 y.o. female who was admitted to [facility] in [place] on 01/04/2024 for Painful Total Joint Arthroplasty Initial [T84.84XA, Z96.60]. Relevant Medical History: Patient presents with painful right total shoulder arthroplasty and now status post right reverse total shoulder arthroplasty on 01/04/2024 Precautions Weight Bearing Status: Right upper extremity nonweightbearing Other Precautions: No shoulder motion except passive shoulder dangling RST PT/OT Falls screen: Fall in the last 12 months: No Are you fearful of falling: No Home Living and Equipment: Lives with: Spouse/Significant other Receives help from: No help from others Type of Home: House Home Layout: Two Level Home Access: Stairs to enter: Number of steps: 3, Railing: no handrails Stairs to alternate level: Number of steps: 14, Railing: Left railing going up for 1st half and then bilateral railings Prior Level of Function and Mobility: Functional Mobility: Independent Basic Activities of Daily Living: Independent Instrumental Activities of Daily Living: Required Assistance: Yard work, vacuuming Driving: Yes 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 OBJECTIVE Vital Signs: Vitals not assessed. Evaluation Assessments: Strength: Right shoulder not tested Range of Motion: Right shoulder minimal elevation with passive shoulder dangling from standing position Cognition: Alert, Oriented x 4 Sensation/Perception: Addressed, no impairments Outcome Measures: [facility] Inpatient Short Form: [facility] Basic Mobility (V.2) How much help from another person do you currently need???If the patient hasn't done an activity recently, how much help from another person do you think he/she would needif he/she tried? 1. Turning from your back to your side while in a flat bed without using bedrails?: None 2. Moving from lying on your back to sitting on the side of a flat bed without using bedrails?: None 3. Moving to and from a bed to a chair (including a wheelchair)?: None 4. Standing up from a chair using your arms (e.g., wheelchair, or bedside chair)?: None 5. To walk in hospital room?: None 6. Climbing 3-5 steps with a railing?: None [facility] Basic Mobility (V.2) Raw Score: 24 [facility] Basic Mobility (V.2) Standardized Score: 57.68 Interpretation: Based on scoring guidelines using the raw score value: Those going to home had an average score at or above 18 Those going to facility had an average score at or below 17 Clinicians answer the [facility] Inpatient Short Form based on observed patient activity and/or clinical judgment (ie. patient can be scored without physically performing each activity) Therapeutic Interventions: SUPINE TO SIT: Assistance Level: Independent Device: none Assistance/Cueing: no cueing required for Completion of transfer Delivery: assessed SIT TO STAND: Assistance Level: Modified Independent, Supervision Device: no assistive device Surface: Bed Assistance/Cueing: no cueing required for completion of transfer Delivery: assessed STAND TO SIT: Assistance Level: Modified Independent, Supervision Device: no assistive device Surface: Chair Assistance/Cueing: no cueing required for completion of transfer Delivery: assessed GAIT: Distance: 5 x 2 meters Assistance Level:Modified Independent, Supervision Device: no assistive device Quality: No concerns/normal gait Assistance/Cueing:no cueing required for completion of gait Delivery: assessed Comments: Ambulatory without a gait aid prior to admission and very active physically THERAPEUTIC ACTIVITY:Patient and helper taught the seated edge of bed technique with the use of pillows to support the arm for shirt, shower sling and daily sling donning and doffing. Also taught twouses of the long, elastic, adjustable ice bag strap: 1) to secure the ice bag in place on the shoulder allowing the patient to mobilize 2) to secure the daily sling close to the body by attaching 1 Velcro tab near the elbow, traversing around the back and placing the other Velcro tab up and under the wrist on the forearm sleeve, to not interrupt finger motion. [employer] message was sent via patient portal with videos of donning and doffing the shower sling and shirts from the seated position. Set up media on demand television viewing the video links in patient's hospital room at the end of the PT session, for the same to videos. THERAPEUTIC EXERCISE: Total Joints Exercise: Shoulder reverse, Per MD protocol/guideline Education: Handouts provided today: Exercises Following Shoulder Surgery ([id number]) , Shoulder Replacement Surgery Videos ([id number]) The patient's status was discussed and the following coordination of care occurred with the cloth measurer/Caregiver Present: Yes, spouse, Jose Alfredo Patient was left in bedside chair at end of session with call light in reach, all needs met and questions answered. Assessment Discharge Therapy Needs - PT: No further skilled therapy Skilled therapy can include physical therapy provided by home health, outpatient clinic, or a post-acute facility. The location of these services is determined by the patient's care team in partnership with patient/family. Level of Care Needed - PT: Other (Comment) (Spouse will assist shirt and sling management and passive dangling exercise) Barriers to Discharge Home: None From a physical therapy perspective, the level of care above has been recommended for Ms. Ramos after hospital discharge. This level of care is based on her functional abilities during today's session. This may change throughout the hospital course and will be updated as appropriate. Clinical Impression: Currently, patient presents with no active right shoulder range of motion/passive dangling only resulting in the following needs assistance with shirt and sling management . Maximized learning for patient and spouse in seated techniques for shirt and sling management as well as standing technique for passive shoulder dangling. The skill of physical therapist was needed today for evaluation and initiation of treatment to teach strategies to protect the surgical joint and promote healing. Physical therapy treatment is medically necessary to restore and maximize function, maximize safetyand facilitate discharge to home, teach and educate the patient and/or caregivers. Progress: All PT goals achieved Plan Functional Goals: PT Inpatient Goals PT Goal #1: Patient and helper will be able to teach back with demonstration the seated edge of bedtechnique with the use of pillows to support the arm for shirt and sling donning and doffing. PT Goal #1 Status: Achieved PT Goal #2: Patient and/or helper will be able to teach back with demonstration the home exercise program using written materials provided. PT Goal #2 Status: Achieved Taisha Ramos has Good rehab potential to meet the expected outcomes in a reasonable period of time. Treatment Plan: Plan: Discontinue PT PT Frequency: One-time visit PT Inpatient Duration : Until goals are met or hospital discharge Requires Inpatient Follow-Up: No Patient agrees with the plan of care and goals. Treatment interventions may include: Treatment/Interventions: Therapeutic exercise, Therapeutic functional activity Tiered PT Evaluation Codes: Comorbid Conditions: Other (Comment) (See medical record) Personal Factors: Hand dominance Examination elements: 4+ Clinical Presentation: Stable Clinical Decision Making: Moderate complexity clinical decision making Billing: Time Spent with Patient Evaluations PT Eval - Mod Complexity: 8 min Therapeutic Interventions Therapeutic Activity (min): 26 min Therapeutic Exercise (min): 20 min Time Tracking Total Timed Units (min): 46 min Total Treatment Time (min): 54 min Jenni Tripp P.T., D.P.T. documented in this encounter OR Notes * Op Note - Hector Gonzales M.D. - 01/04/2024 8:45 AM CDT Pre-op Diagnosis Painful Total Joint Arthroplasty Initial Post-op Diagnosis Painful Total Joint Arthroplasty Initial Farm Advisor A first aid teacher was necessary for one or more of the following: opening, exposure and visualization during the case, maintaining hemostasis, wound closure. Findings As expected. Complications None Operative Note Narrative The patient was brought to the operating room where the patient underwent satisfactory anesthesia. The patient was carefully padded and positioned in the beach chair position. The operative upper extremity was sterilely prepped and draped in the usual manner. The standard skin incision was used. The skin was incised as well as the fat. The deltopectoral interval was identified. The cephalic vein was preserved and retracted medially. The plane between the deltoid and underlying remnants of the scar and rotator cuff were carefully identified. The humeral head was dislocated. The patient had a rotator cuff tear present with significant chondral wear. A tenodesis of the long head of the biceps was performed. An entry hole was made. The canal was reamed. The head was cut in 30 degrees of retroversion. The glenoid was inspected. The patient had glenoid wear. The glenoid base plate was prepared. The base plate was fixed with excellent stability. The trial components were placed. There was excellent stability and range of motion. The real glenosphere was placed. The real humeral component was placed with an excellent tight fit. The humeral bearing surface was placed. The shoulder was reduced. There was excellent stability and range of motion. The shoulder was irrigated multiple times during the course of the procedure. The remnants of the subscapularis were repaired with multiple No. 2 stitches. Again the glenohumeral motion was very smooth and stable. The deltopectoral interval wasclosed with multiple No. 2 stitches, subcutaneous tissue with 2-0 Monocryl, and running Monocryl placed in the skin. Steri-Strips were applied as well as a sterile dressing. The patient's arm was placed in a sling and brought to recovery in stable condition. Hector Gonzales M.D. documented in this encounter Plan of Treatment Scheduled Orders Name Type Priority Associated Diagnoses Orde r Schedule DX Shoulder Right 2+ Views Imaging RAD - Routine (most inpatients and all outpatients) Painful Total Joint Arthroplasty Initial Expected: 02/15/2024 (Approximate), Expires: 04/05/2025 Scheduled Referrals Name Type Priority Associated Diagnoses Orde r Schedule External referral PT (non-[place]) Outpatient Referral Routine Painful Total Joint Arthroplasty Initial Expected: 02/15/2024 (Approximate), Expires: 01/03/2025 documented as of this encounter Procedures Procedure Name Priority Date/Time Associated Diagnosis Comments CBC WITH DIFFERENTIAL, B Routine 01/05/2024 9:17 AM CDT BASIC METABOLIC PANEL, S/P Routine 01/05/2024 9:17 AM CDT DX SHOULDER RIGHT 1 VIEW RAD - Routine (most inpatients and all outpatients) 01/04/2024 10:14 AM CDT ARTHROPLASTY REPLACEMENT TOTAL SHOULDER 01/04/2024 7:23 AM CDT Painful Total Joint Arthroplasty Initial documented in this encounter Results * (ABNORMAL) CBC with Differential, Blood (01/05/2024 9:17 AM CDT) Hemoglobin 11.4(L) 11.6 - 15.0 g/dL 01/05/2024 10:34 AM CDT DTL Hematocrit 35.0(L) 35.5 - 44.9 % 01/05/2024 10:34 AM CDT DTL Erythrocytes 3.49(L) 3.92 - 5.13 x10(12)/L 01/05/2024 10:34 AM CDT DTL MCV 100.3(H) 78.2 - 97.9 fL 01/05/2024 10:34 AM CDT DTL RBC Distrib Width 12.3 12.2 - 16.1 % 01/05/2024 10:34 AM CDT DTL Platelet Count 359 157 - 371 x10(9)/L 01/05/2024 10:34 AM CDT DTL Leukocytes 14.5(H) 3.4 - 9.6 x10(9)/L 01/05/2024 10:34 AM CDT DTL Neutrophils 12.56(H) 1.56 - 6.45 x10(9)/L 01/05/2024 10:34 AM CDT DHPM Lymphocytes 0.72(L) 0.95 - 3.07 x10(9)/L 01/05/2024 10:34 AM CDT DTL Monocytes 1.15(H) 0.26 - 0.81 x10(9)/L 01/05/2024 10:34 AM CDT DTL Eosinophils <0.03 0.03 - 0.48 x10(9)/L 01/05/2024 10:34 AM CDT DTL Basophils <0.03 0.01 - 0.08 x10(9)/L 01/05/2024 10:34 AM CDT DTL Blood (Blood, Venous) 01/05/2024 9:17 AM CDT 01/05/2024 10:01 AM CDT Alfonso Hinojosa M.D. LAB BLOOD ADD-ON [facility] [place] [address] [place] [address], [facility] DTL [facility] [address] [place], [place] [id number] [place] [address] [place] [address] * (ABNORMAL) Basic Metabolic Panel (01/05/2024 9:17 AM CDT) [facility] Potassium, S 4.4 3.6 - 5.2 mmol/L 01/05/2024 10:40 AM CDT DTL Sodium, S 134(L) 135 - 145 mmol/L 01/05/2024 10:40 AM CDT DTL Chloride, S 101 98 - 107 mmol/L 01/05/2024 10:40 AM CDT DTL Bicarbonate, S 25 22 - 29 mmol/L 01/05/2024 10:40 AM CDT DTL Anion Gap 8 7 - 15 01/05/2024 10:40 AM CDT DTL BUN (Blood Urea Nitrogen), S 10 6 - 21 mg/dL 01/05/2024 10:40 AM CDT DTL Creatinine 0.67 0.59 - 1.04 mg/dL 01/05/2024 10:40 AM CDT DTL Estimated GFR (eGFR) >90 >=60 mL/min/BSA 01/05/2024 10:40 AM CDT DTL Comment: Estimated GFR calculated using the 2020 CKD_EPI creatinine equation. Calcium, Total, S 9.7 8.8 - 10.2 mg/dL 01/05/2024 10:40 AM CDT DTL Glucose, S 110 70 - 140 mg/dL 01/05/2024 10:40 AM CDT DTL Blood (Blood, Venous) 01/05/2024 9:17 AM CDT 01/05/2024 10:19 AM CDT Alfonso Hinojosa M.D. LAB BLOOD ADD-ON [facility] [place] [address] [place] [address], [facility] DTL [facility] [address] [place] [address] * DX Shoulder Right 1 View (01/04/2024 10:14 AM CDT) Anatomical Region Laterality Modality Upper Extremity, Shoulder, M usculoskeletal RST LOS, Musculoskeletal ARZ LOS, Muskuloskeletal FLA LOS Right Digit al Radiography Impressions 01/04/2024 10:16 AM CDT Right reverse TSA. Negative for PO purposes. Narrative 01/04/2024 10:16 AM CDT EXAM: ??DX SHOULDER RIGHT 1 VIEW Procedure Note Yuko Salgado M.D. - 01/04/2024 EXAM: DX SHOULDER RIGHT 1 VIEW IMPRESSION: Right reverse TSA. Negative for PO purposes. Alfonso Hinojosa M.D. IMG DIAGNOSTIC IMAG ING PROCEDURES documented in this encounter Visit Diagnoses Diagnosis Painful Total Joint Arthroplasty Initial- Primary Painful Total Joint Arthroplasty Initial Pain Shoulder Right [M25.511] documented in this encounter Admitting Diagnoses Diagnosis Painful Total Joint Arthroplasty Initial documented in this encounter Administered Medications Inactive Administered Medications - up to 3 most recent administrations Medication Order MAR Action Action Date Dose Rate Site acetaminophen tablet 650 mg (TYLENOL) 650 mg, oral, Once, On Tue01/04/24 at 0715, For 1 dose, Pre-Op Given 01/04/2024 6:51 AM CDT 650 mg acetaminophen tablet 650 mg (TYLENOL) 650 mg, oral, Every 4 hours PRN, moderate pain or score 4-6 of 10, Starting on Tue01/04/24 at 1324 Given 01/05/2024 8:49 AM CDT 650 mg Given 01/05/2024 4:44 AM CDT 650 mg acetaminophen tablet 650 mg (TYLENOL) 650 mg, oral, Once as needed, other, If patient has not received in the previous 6 hours, Starting on Tue01/04/24 at 1053, For 1 dose, PACU (only), Oral unless RASS less than -1 or nausea/vomiting. Do not use if given in last 6 hours Given 01/04/2024 12:49 PM CDT 650 mg benzocaine-menthoL 15-3.6 mg per lozenge 1 lozenge (CEPACOL) 1 lozenge, oral, As needed, sore throat, Starting on Tue01/04/24 at 1324 bisacodyL suppository 10 mg (DULCOLAX) 10 mg, rectal, Daily PRN, constipation, Starting on Tue01/04/24 at 1324, Ordered sequence of administration: polyethylene glycol, then bisacodyl until BM achieved. calcium carbonate chewable tablet 400 mg of calcium (TUMS) 400 mg of calcium, oral, Every 2 hour PRN, indigestion, Starting on Tue01/04/24 at 1324, Doses listed are in mg of elemental calcium. Take with food. 500 mg calcium carbonate contains 200 mg of elemental calcium. carboxymethylcellulose 0.5 % ophthalmic solution 2 drop (REFRESH PLUS) 2 drop, both eyes, 4 times daily PRN, dry eyes, Starting on Tue01/04/24 at 1324 ceFAZolin in dextrose (iso osm) IVPB 2 g (ANCEF) 2 g, intravenous, at 200 mL/hr, Administer over 30 Minutes, Every 8 hours, First dose on Tue01/04/24 at 1600, For 2 doses, Start within 8 hours of last IV dose., Drug Monitoring Program: Pharmacist to adjust medication dosing based on indication and drug clearance factors., Indications: Prophylaxis, surgical New Bag 01/05/2024 12:46 AM CDT 2 g 200 mL/h r New Bag 01/04/2024 4:47 PM CDT 2 g 200 mL/hr fosaprepitant in NaCl 0.9% IVPB 150 mg (EMEND) 150 mg, intravenous, at 500 mL/hr, Administer over 30 Minutes, Once, On Tue01/04/24 at 0715, For 1 dose, Intra-Op, Incompatible with solutions containing divalent cations (calcium, magnesium) including lactated Ringer's solution., Restriction Criteria (Pharmacy will review and approve if criteria met): Use in the perioperative setting New Bag 01/04/2024 7:35 AM CDT 150 mg 500 mL/hr haloperidol lactate injection 1 mg (HALDOL) 1 mg, intravenous, Every 6 hours PRN, nausea, vomiting, Starting on Tue01/04/24 at 1324, For 48 hours, Total of 3 doses in 24 hour period. RASS must be -2 or higher to administer. Reassess for nausea or vomiting after at least 10 minutes. If nausea or vomiting persists administer next ordered antiemetic medications (order for antiemetic medication administration ondansetron then haloperidol then prochlorperazine) HYDROmorphone (PF) injection 0.2 mg (DILAUDID) 0.2 mg, intravenous, Every 2 hour PRN, severe pain or score 7-10 of 10, Starting on Tue01/04/24 at 1324, For 2 doses, May administer if pain is greater than 7 after scheduled and PRN regimen exhausted. If pain remains greater than 7, notify primary service. Lactated Ringer's 75 mL/hr, intravenous, Continuous, Starting on Tue01/04/24 at 1345, Until patient has 500cc po intake New Bag 01/04/2024 4:53 PM CDT 75 mL/h r 75 mL/hr Continued from OR 01/04/2024 2:37 PM CDT 75 mL/hr 75 mL/ hr Lactated Ringer's 33 mL/hr, intravenous, Continuous, Starting on Tue01/04/24 at 0900, PACU & Post-Op New Bag 01/04/2024 12:10 PM CDT 33 mL/hr 33 mL/hr naloxone injection 0.2 mg (NARCAN) 0.2 mg, intravenous, As needed, respiratory depression, Starting on Tue01/04/24 at 1324, For RASS Score -4 or less, respiratory rate of less than 8 breaths/min. Notify provider/service and rapid response team (if available at institution). ondansetron (PF) injection 4 mg (ZOFRAN) 4 mg, intravenous, Every 6 hours PRN, nausea, vomiting, Starting on Tue01/04/24 at 1324, For 48 hours, Reassess for nausea or vomiting after at least 10 minutes. If nausea or vomiting persists administer next ordered antiemetic medications (order for antiemetic medication administration ondansetron then haloperidol then prochlorperazine). oxyCODONE IR tablet 10 mg (ROXICODONE) 10 mg, oral, Every 4 hours PRN, severe pain or score 7-10 of 10, Starting on Tue01/04/24 at 1324, Second line therapy. If patient is greater than 7 after 2 hours, call service for new order. oxyCODONE IR tablet 5 mg (ROXICODONE) 5 mg, oral, Every 4 hours PRN, moderate pain or score 4-6 of 10, Starting on Tue01/04/24 at 1324, Second line therapy Given 01/05/2024 10:20 AM CDT 5 mg phenoL 1.4 % spray 5 spray (CHLORASEPTIC) 5 spray, mouth/throat, Every 2 hour PRN, sore throat, Starting on Tue01/04/24 at 1324, to mouth/throat polyethylene glycol powder packet 1 packet (MIRALAX) 1 packet, oral, Daily PRN, constipation, Starting on Tue01/04/24 at 1324, Ordered sequence of administration: polyethylene glycol, then bisacodyl until BM achieved. Avoid mixing with starch-based thickened liquids. prochlorperazine injection 5 mg (COMPAZINE) 5 mg, intravenous, Every 6 hours PRN, nausea, vomiting, Starting on Tue01/04/24 at 1324, For 48 hours, RASS must be -2 or higher to administer. Reassess for nausea/vomiting after at least 10 minutes. If nausea or vomiting persists administer next ordered antiemetic medications (order for antiemetic medication administration ondansetron then haloperidol then prochlorperazine) sennosides-docusate sodium 8.6-50 mg per tablet 1 tablet (SENOKOT-S) 1 tablet, oral, 2 times daily, First dose on Tue01/04/24 at 2100, Do not give if patient has diarrhea. Given 01/05/2024 8:48 AM CDT 1 tablet Given 01/04/2024 8:21 PM CDT 1 tablet documented in this encounter Active and Recently Administered Medications Times are shown in CDT. Scheduled Medication Order 01/03/2024 01/04/2024 01/05/2024 acetaminophen tablet 650 mg (TYLENOL) (COMPLETED) 650 mg, oral, Once, On Tue01/04/24 at 0715, For 1 dose, Pre-Op 0651 (Given - Provider: Gabrielle Hagan RZacN.) ceFAZolin in dextrose (iso osm) IVPB 2 g (ANCEF) (COMPLETED) 2 g, intravenous, at 200 mL/hr, Administer over 30 Minutes, Every 8 hours, First dose on Tue01/04/24 at 1600, For 2 doses, Start within 8 hours of last IV dose., Drug Monitoring Program: Pharmacist to adjust medication dosing based on indication and drug clearance factors., Indications: Prophylaxis, surgical 1647 (New Bag - Provider: Ines Montemayor RFrancisco.) 0046 (New Bag - Provider: Flex CoronaNZac) ceFAZolin injection 2,000 mg (ANCEF) (COMPLETED) 2,000 mg (rounded from 1,145 mg = 25 mg/kg ? 45.8 kg), intravenous, Once, On Tue01/04/24 at 0730, For 1 dose, Intra-Op, Preoperatively within 1 hour prior to surgical incision If needed, reconstitute vial per package insert instructions. See IVAG for administration guidelines., Drug Monitoring Program: Pharmacist to adjust medication dosing based on indication and drug clearance factors., Indications: Prophylaxis, surgical 0837 (Given - Provider: Derek Oliver, DRIVER'S LICENSE REVIEWING OFFICER, SUPERANNUATION CLERK, DNAP) fosaprepitant in NaCl 0.9% IVPB 150 mg (EMEND) (COMPLETED) 150 mg, intravenous, at 500 mL/hr, Administer over 30 Minutes, Once, On Tue01/04/24 at 0715, For 1 dose, Intra-Op, Incompatible with solutions containing divalent cations (calcium, magnesium) including lactated Ringer's solution., Restriction Criteria (Pharmacy will review and approve if criteria met): Use in the perioperative setting 0735 (New Bag - Provider: Gabrielle Hagan RZacN.) sennosides-docusate sodium 8.6-50 mg per tablet 1 tablet (SENOKOT-S) 1 tablet, oral, 2 times daily, First dose on Tue01/04/24 at 2100, Do not give if patient has diarrhea. 2020 (Given - Provider: Catie Araujo R.N.) 0848 (Given - Provider: Josh Oates R.N.) tranexamic acid in NaCl IVPB 1,000 mg (CYKLOKAPRON) (COMPLETED) 1,000 mg (1 g), intravenous, at 300 mL/hr, Administer over 20 Minutes, Once, On Tue01/04/24 at 0730, For 1 dose, Intra-Op, Administer in OR upon induction 0810 (Given - Provider: Derek Oliver, DRIVER'S LICENSE REVIEWING OFFICER, SUPERANNUATION CLERK, DNAP) tranexamic acid in NaCl IVPB 1,000 mg (CYKLOKAPRON) (COMPLETED) 1,000 mg (1 g), intravenous, at 300 mL/hr, Administer over 20 Minutes, Once, On Tue01/04/24 at 0730, For 1 dose, Intra-Op, Administer in OR just before dropping tourniquet 0930 (Given - Provider: Miya Leblanc, DRIVER'S LICENSE REVIEWING OFFICER, SUPERANNUATION CLERK, MNA) Continuous Medication Order 01/03/2024 01/04/2024 01/05/2024 Lactated Ringer's 75 mL/hr, intravenous, Continuous, Starting on Tue01/04/24 at 1345, Until patient has 500cc po intake 1437 (Continued from OR - Provider: Ines Montemayor R.N.)1653 (New Bag - Provider: Ines Montemayor R.N.) Lactated Ringer's 33 mL/hr, intravenous, Continuous, Starting on Tue01/04/24 at 0900, PACU & Post-Op 1210 (New Bag - Provider: Jonnathan Ramirez R.N., CCRN, CATN) PRN Medication Order 01/03/2024 01/04/2024 01/05/2024 acetaminophen tablet 650 mg (TYLENOL) 650 mg, oral, Every 4 hours PRN, moderate pain or score 4-6 of 10, Starting on Tue01/04/24 at 1324 0444 (Given - Provid er: Catie Araujo R.N.)0849 (Given - Provider: Josh Oates R.N.) acetaminophen tablet 650 mg (TYLENOL) (COMPLETED)(Linked Group 1) 650 mg, oral, Once as needed, other, If patient has not received in the previous 6 hours, Starting on Tue01/04/24 at 1053, For 1 dose, PACU (only), Oral unless RASS less than -1 or nausea/vomiting. Do not use if given in last 6 hours 1249 (Given - Provider: Fatuma Ramirez R.N., CCRN, CATN) benzocaine-menthoL 15-3.6 mg per lozenge 1 lozenge (CEPACOL) 1 lozenge, oral, As needed, sore throat, Starting on Tue01/04/24 at 1324 bisacodyL suppository 10 mg (DULCOLAX) 10 mg, rectal, Daily PRN, constipation, Starting on Tue01/04/24 at 1324, Ordered sequence of administration: polyethylene glycol, then bisacodyl until BM achieved. calcium carbonate chewable tablet 400 mg of calcium (TUMS) 400 mg of calcium, oral, Every 2 hour PRN, indigestion, Starting on Tue01/04/24 at 1324, Doses listed are in mg of elemental calcium. Take with food. 500 mg calcium carbonate contains 200 mg of elemental calcium. carboxymethylcellulose 0.5 % ophthalmic solution 2 drop (REFRESH PLUS) 2 drop, both eyes, 4 times daily PRN, dry eyes, Starting on Tue01/04/24 at 1324 haloperidol lactate injection 1 mg (HALDOL) 1 mg, intravenous, Every 6 hours PRN, nausea, vomiting, Starting on Tue01/04/24 at 1324, For 48 hours, Total of 3 doses in 24 hour period. RASS must be -2 or higher to administer. Reassess for nausea or vomiting after at least 10 minutes. If nausea or vomiting persists administer next ordered antiemetic medications (order for antiemetic medication administration ondansetron then haloperidol then prochlorperazine) HYDROmorphone (PF) injection 0.2 mg (DILAUDID) 0.2 mg, intravenous, Every 2 hour PRN, severe pain or score 7-10 of 10, Starting on Tue01/04/24 at 1324, For 2 doses, May administer if pain is greater than 7 after scheduled and PRN regimen exhausted. If pain remains greater than 7, notify primary service. naloxone injection 0.2 mg (NARCAN) 0.2 mg, intravenous, As needed, respiratory depression, Starting on Tue01/04/24 at 1324, For RASS Score -4 or less, respiratory rate of less than 8 breaths/min. Notify provider/service and rapid response team (if available at institution). ondansetron (PF) injection 4 mg (ZOFRAN) 4 mg, intravenous, Every 6 hours PRN, nausea, vomiting, Starting on Tue01/04/24 at 1324, For 48 hours, Reassess for nausea or vomiting after at least 10 minutes. If nausea or vomiting persists administer next ordered antiemetic medications (order for antiemetic medication administration ondansetron then haloperidol then prochlorperazine). oxyCODONE IR tablet 10 mg (ROXICODONE)(Linked Group 2) 10 mg, oral, Every 4 hours PRN, severe pain or score 7-10 of 10, Starting on Tue01/04/24 at 1324, Second line therapy. If patient is greater than 7 after 2 hours, call service for new order. 1020 (See Alternativ e - Provider: Josh Oates R.N.) oxyCODONE IR tablet 5 mg (ROXICODONE)(Linked Group 2) 5 mg, oral, Every 4 hours PRN, moderate pain or score 4-6 of 10, Starting on Tue01/04/24 at 1324, Second line therapy 1020 (Given - Provid er: Josh Oates R.N.) phenoL 1.4 % spray 5 spray (CHLORASEPTIC) 5 spray, mouth/throat, Every 2 hour PRN, sore throat, Starting on Tue01/04/24 at 1324, to mouth/throat polyethylene glycol powder packet 1 packet (MIRALAX) 1 packet, oral, Daily PRN, constipation, Starting on Tue01/04/24 at 1324, Ordered sequence of administration: polyethylene glycol, then bisacodyl until BM achieved. Avoid mixing with starch-based thickened liquids. prochlorperazine injection 5 mg (COMPAZINE) 5 mg, intravenous, Every 6 hours PRN, nausea, vomiting, Starting on Tue01/04/24 at 1324, For 48 hours, RASS must be -2 or higher to administer. Reassess for nausea/vomiting after at least 10 minutes. If nausea or vomiting persists administer next ordered antiemetic medications (order for antiemetic medication administration ondansetron then haloperidol then prochlorperazine) Linked Groups Order Group 1: acetaminophen tablet 650 mg (TYLENOL) (COMPLETED)Jump to med 650 mg, oral, Once as needed, other, If patient has not received in the previous 6 hours, Starting on Tue01/04/24 at 1053, For 1 dose, PACU (only), Oral unless RASS less than -1 or nausea/vomiting. Do not use if given in last 6 hours Or acetaminophen injection 750 mg (OFIRMEV) (COMPLETED) 750 mg, intravenous, at 300 mL/hr, Administer over 15 Minutes, Once as needed, other, If patient has not received in previous 6 hours, Starting on Tue01/04/24 at 1053, For 1 dose, PACU (only), Oral unless RASS less than -1 or nausea/vomiting. Do not use if given in last 6 hours, Restriction Criteria (Pharmacy will review and approve if criteria met): Unable to take or tolerate medications administered via the enteral route or orally (not just NPO) Group 2: oxyCODONE IR tablet 5 mg (ROXICODONE)Jump to med 5 mg, oral, Every 4 hours PRN, moderate pain or score 4-6 of 10, Starting on Tue01/04/24 at 1324, Second line therapy Or oxyCODONE IR tablet 10 mg (ROXICODONE)Jump to med 10 mg, oral, Every 4 hours PRN, severe pain or score 7-10 of 10, Starting on Tue01/04/24 at 1324, Second line therapy. If patient is greater than 7 after 2 hours, call service for new order. documented in this encounter Care Teams Screen Maker Relationship Specialty Start Date End Date Elsewhere, Pcp PCP - General Internal Medicine 10/01/22 documented as of this encounter
--- OUTSIDE RECORDS SUMMARY | 2024-01-26 13:01 | XMS_ITS | Clinical Summary ---
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 For routine questions regarding patient records, call [phone] during business hours, M-F 8:00 AM - 5:00 PM Central Time. Record requests for emergency care only can be directed to [phone] at any time.[facility] Allergies Active Allergy Reactions Criticality Noted Date Comments Aspirin GI bleeding 03/05/2015 Celecoxib Headache Low 03/05/2015 Ibuprofen Other (see comments),GI bleeding High 10/31/2007 Asprin Asprin Naproxen GI bleeding High 03/05/2015 Nsaids (Non-Steroidal Anti-Inflammatory Drug) Other (see comments),GI bleeding High 03/05/2015 Rofecoxib Other (see comments) Low 03/05/2015 Doesn't remember reaction Suture (Absorbable) Other (see comments) 2023 Festers and breaks apart Medications Medication Sig Dispensed Refills Start Date End Date Status VITAMIN B COMPLEX ORAL Take 1 tablet by mouth daily. 12/03/2016 Active estradioL (CLIMARA) 0.075 mg/[address] 1 patch on the skin once a week. On Sundays07/11/2020 Active diclofenac sodium (VOLTAREN) 1 % gel Apply topically daily as needed (pain). Active CALCIUM-MAGNESI UM-ZINC ORAL Take 2 tablets by mouth daily. 1000 mg calcium daily w/magnesium and zinc Active codeine-guaiFEN esin (ROBITUSSIN-AC) 10-100 mg/5 mL liquid Take 5 mL by mouth every 4 (four) hours as needed for congestion or cough. 12/20/2023 Active cholecalciferol (VITAMIN D3) 50 mcg (2,000 Unit) capsule Take 50 mcg by mouth daily. Active ascorbic acid (VITAMIN C ORAL) Take 1 tablet by mouth daily. Vitamin C Complex Active collagen, hydrolysate, bovine, (collagen, hydr, bovine,, bulk,) 100 % powder Take 1 each by mouth daily. Collagen Powder Active acetaminophen (TYLENOL) 325 mg tablet Take 2 tablets (650 mg total) by mouth every 4 (four) hours as needed for moderate pain or score 4-6 of 10 or mild pain or score 1-3 of 10. 01/05/2024 Active oxyCODONE (ROXICODONE) 5 mg immediate release tabletIndicatio ns:Acute Pain Take 1 tablet (5 mg total) by mouth every 4 (four) hours as needed for severe pain or score 7-10 of 10 Indication: Acute Pain. 12 tablet 01/05/2024 Active sennosides-docu sate sodium (SENOKOT-S) 8.6-50 mg per tablet Take 1 tablet by mouth 2 (two) times a day. 100 tablet 01/05/2024 Active cholecalciferol (VITAMIN D3) 125 mcg (5,000 Unit) capsule Take 1 capsule by mouth daily. 07/20/2013 12/30/19 24 Discontinued(The rapy completed) TURMERIC ORAL Take 500 mg by mouth daily. 06/14/2022 12/30/19 24 Discontinued(The rapy completed) mometasone (ELOCON) 0.1 % cream Apply topically to affected area(s) once daily. 06/07/2022 12/30/19 24 Discontinued(The rapy completed) Ventolin HFA 90 mcg/actuation inhaler INHALE 2 PUFFS BY MOUTH FOUR TIMES A DAY NEEDED DIRECTED 12/21/2023 01/03/20 24 Discontinued Active Problems Problem Noted Date Diagnosed Date Painful Total Joint Arthroplasty Initial 024 Pain Thumb Left 05/26/2021 Hypertension Essential Primary 08/29/2013 Encounters Date Type Department Care Team Description 01/04/2024 7:43 AM CDT Anesthesia Event [facility] OR [address] [place] [address] Westley Nunez D.O. 01/04/2024 7:40 AM CDT Ancillary Procedure Department of Anesthesiology 01/04/2024 7:25 AM CDT - 01/04/2024 10:09 AM CDT Surgery [facility] OR [address] [place] [address] Hector Gonzales M.D. ARTHROPLASTY REPLACEMENT TOTAL SHOULDER. 01/04/2024 5:33 AM CDT - 01/05/2024 1:32 PM CDT Hospital Encounter [facility], Ninth Floor [address] [place] [address] Hector Gonzales M.D. Painful Total Joint Arthroplasty Initial (Primary Dx); Pain Shoulder Right [M25.511] Discharge Disposition: Home or Self Care 01/03/2024 1:30 PM CDT Comprehensive Visit Division of Allergic Diseases in [place], [place] [address] [place] [address] Lynsey Aguillon M.D. Allergy Penicillin Antibiotic Personal History 01/03/2024 12:45 PM CDT Clinical Support Division of Allergic Diseases in [place], [place] [address] [place] [address] Erum Greene, ABRIL, P.A.-C. Mimi Weston, R.N. Allergy Penicillin Antibiotic Personal History 01/03/2024 10:09 AM CDT - 01/03/2024 11:59 PM CDT Hospital Encounter Department of Radiology, [facility], in [place], [place] [address] [place] [address] Snow Stewart M.D. Painful Total Joint Arthroplasty Initial Discharge Disposition: Home or Self Care 01/03/2024 9:00 AM CDT Comprehensive Visit Preoperative Evaluation Center in [place], [place] [address] [place] [address] Snow Stewart M.D. Christensen, Jamie M, JACK STRIP ASSEMBLER, C.N.P., M.S.N. Preanesthetic Medical Exam (Primary Dx); Post Operative Nausea/Vomiting; Painful Total Joint Arthroplasty Initial ; Hypertension Essential Primary; Hyperlipidemia 01/03/2024 8:15 AM CDT Office Visit Department of Orthopedic Surgery in [address] [address] Hector Gonzales M.D. Pain Shoulder Right (Primary Dx) 01/03/2024 7:05 AM CDT - 01/03/2024 10:08 AM CDT Hospital Encounter Department of Radiology, [facility] in [place], [place] [address] [place] [phone] Snow Stewart M.D. Painful Total Joint Arthroplasty Initial Discharge Disposition: Home or Self Care 01/03/2024 6:40 AM CDT - 01/03/2024 7:04 AM CDT Hospital Encounter Department of Laboratory Medicine and Pathology, [facility] in [address] [address] Erum Greene, ABRIL, P.A.-C. Preanesthetic Medical Exam Discharge Disposition: Home or Self Care 12/30/2023 10:00 AM CDT Clinical Communication Virtual Review in [address] [address] Pre-visit Intake 12/28/2023 Clinical Communication Department of Orthopedic Surgery in [address] [address] Liseth Ohara L.P.N. Discharge Summary from Last 3 Months Immunizations Name Administration Dates Next Due HZV (ZOSTAVAX) 07/23/2013 Influenza Split 04/25/2013 Tdap 10/31/2007 Family History Medical History Relation Name Comments Colon polyps Father Dad Dementia Father Dad Parkinson? s related Hyperlipidemia Father Dad Parkinson disease Father Dad Stroke Father Dad Massive Stroke Maternal Grandfather Johnnie Stork Bleeding Disorder Maternal Grandmother Taj Stork Osteoporosis Maternal Grandmother Taj Stork Anxiety disorder Mother Shiloh Arthritis Mother Shiloh Dementia Mother Shiloh Osteoporosis Mother Shiloh Skin cancer Mother Shiloh Beta cell Stroke Mother Shiloh Transient ischemic attack Mother Shiloh Leukemia Paternal Grandfather Rafael Whitney Other cancer Paternal Grandmother Phyllis Nielsen ns Hyperlipidemia Sister Rae Osteoporosis Sister Rae Osteopenia Relation Name Status Comments Father Dad Maternal Grandfather Johnnie Potts Maternal Grandmother Taj Potts Mother Shiloh Paternal Grandfather Rafael Whitney Paternal Grandmother Phyllis Mcbride Social History Tobacco Use Types Packs/Day Years Used Date Smoking Tobacco: Former Cigarettes 0.5 6.8 0 10/07/1967 - 06/22/1976 Passive Smoke Exposure: Past Smokeless Tobacco: Never Tobacco Cessation:Counseling Given: Not Answered Comments:Situational in late teens early 20s except pregnancies Alcohol Use Standard Drinks/Week Comments Yes 2 (1 standard drink = 0.6 oz pur e alcohol) [facility] Utilities Answer Date Recorded In the past 12 months has e [employer], gas, oil, or water [employer] threatened to shut off services in your [...] often do you attend chur ch or rastafari services? 1 to 4 times per year 10/04/2022 Do you belong to any clubs o r organizations such as orthodoxy groups, unions, fraternal or athletic groups, or [...] and heating? Not hard at all 10/04/2022 [facility] Occupat ional Health - Occupational Stress [...] Master's degree (e.g., MA, MS, Kanwal, MEd, PAPER MAKER, TRICE) 01/07/2021 Sex and Gender Information Value [...] Mass Index 19.06 01/04/2024 5:52 AM CDT Plan of Treatment Health Maintenance Due Date Last Done Comments Bone Density Scan (Osteoporo sis Screen) 1949 CT Colonography 1949 Cologuard 1949 FIT 1949 Hepatitis C Screening 1950 Depression Screening (Annual PHQ-2) 08/08/2023 Mammogram 08/02/2024 08/02/2023, 1201/2023, 11/13/2021, Additional history exists Office Visit for Blood Press ure Check / Re-check 01/02/2025 01/03/2024 Fasting Glucose for Diabetes Screening 01/04/2027 01/05/2024, 08/05/2023, 10/22/2021, Additional history exists Colonoscopy 10/04/2029 10/04/2019, 08/2009 (Performed elsewhere) Colorectal Cancer Screening 10/04/2029 DTaP,Tdap,and Td Vaccines (3 - Td or Tdap) 06/12/2032 06/12/2022, 10/31/2007, 03/17/1998 Pneumococcal vaccine (65+ years) Completed 04/29/20 17, 02/19/2016 Zoster Vaccines Completed 01/15/2021, 06/09, 05/21/2014, Additional history exists Influenza Vaccine Completed 05/10/2023, , 06/03/2021, Additional history exists COVID-19 Vaccine Completed 12/17/2023, 10/2022, 02/01/2023, Additional history exists Fall Risk Screen (Annual) Completed 01/04/2024 Medical Devices Implanted Type Area Director Patient Accounting Device Identifier Shelf Expiration Date Model / Serial / Lot R Shoulder Hardware e.g. pins/screw s/rods Right: Shoulder Mini Stealth All-Suture [place], With One #2 Suture Implanted:Qt y: 1 on 01/04/20[place] [facility] [place]. pins/screw s/rods Right: Shoulder Responsive Arthroscopy [id number] 03/28/2024 [id number] / / [id number] Scrw Cmp 6.5x30 - [id number] Implanted:Qt y: 1 on 01/04/2024 by [place] M[place]. [place] [facility] [place] e.g. pins/screw s/rods Right: Shoulder [employer] 10/27/2033 [id number] / / [id number] Screw 3.5 Hex Lck 4.75x20 - [id number] Implanted:Qt y: 1 on 01/04/2024 by [place] [facility] [place] e.g. pins/screw s/rods Right: Shoulder [employer] 11/25/2033 [id number] / / [id number] Screw 3.5 Hex Lck 4.75x30 - [id number] 6 Implanted:Qt y: 1 on 01/04/2024 by [place] M.[place]. [place] [facility] [place] e.g. pins/screw s/rods Right: Shoulder [employer] 09/13/2033 [id number] / / [id number] Screw 3.5 Hex Lck 4.75x15 - [id number] Implanted:Qt y: 1 on 01/04/2024 by [place] M[place] [facility] [place] e.g. pins/screw s/rods Right: Shoulder [employer] 11/28/2033 [id number] / / [id number] Screw 3.5 Hex Lck 4.75x15 - [id number] Implanted:Qt y: 1 on 01/04/2024 by [place] M[place]. [place] [facility] [place] e.g. pins/screw s/rods Right: Shoulder [employer] 11/27/2033 [id number] / / [id number] Mini Stealth All-Suture [place], With One #2 Suture Implanted:Qt y: 1 on 01/04/2024 by [place] M[place]. [place] [facility] [place] e.g. pins/screw s/rods Right: Shoulder Responsive Arthroscopy [id number] 03/28/2024 [id number] / / [id number] Mini Stealth All-Suture [place], With One #2 Suture Implanted:Qt y: 1 on 01/04/2024 by Hector [place] M.[place]. [place] [facility] [place] e.g. pins/screw s/rods Right: Shoulder Responsive Arthroscopy [id number] 03/28/2024 [id number] / / [id number] Mini Stealth All-Suture [place], With One #2 Suture Implanted:Qt y: 1 on 01/04/2024 by Hector [place] M.[place]. [place] [facility] [place] e.g. pins/screw s/rods Right: Shoulder Responsive Arthroscopy [id number] 03/28/2024 [id number] / / [id number] Bsplt Glnd Cmp Rv Aug Sm - [id number] Implanted:Qt y: 1 on 01/04/2024 by [place]ector [place] M.[place] [facility] [place]er Implant Right: Shoulder [employer] 12/04/2028 [id number] / / [id number] Bsplt Glnd Cmp 36 - [id number] 6 Implanted:Qt y: 1 on 01/04/2024 by [place]ector [place] M.[place]. [place] [facility] [place] Implant Right: Shoulder [employer] 10/31/2033 [id number] / / [id number] Hum Stm Cmp 5 - [id number] Implanted:Qt y: 1 on 01/04/2024 by Hector [place] M.[place]. [place] [facility] [place] Implant Right: Shoulder [employer] 05/29/2031 [id number] / / [id number] Hum Tr Cmp Rvrs Std +6 - [id number] Implanted:Qt y: 1 on 01/04/2024 by Hector [place] M.[place]. [place] [facility] [place] Implant Right: Shoulder [employer] [id number] 10/14/2033 [id number] / / [id number] Hum Brng Cmp Vve Rvrs Std 36 - [id number] Implanted:Qt y: 1 on 01/04/2024 by Hector [place] M.[place]. [place] [facility] [place]er Implant Right: Shoulder [employer] [id number] 10/29/2028 [id number] / / [id number] Procedures Procedure Name Priority Date/Time Associated Diagnosis Comments CBC WITH DIFFERENTIAL, B Routine 01/05/2024 9:17 AM CDT BASIC METABOLIC PANEL, S/P Routine 01/05/2024 9:17 AM CDT DX SHOULDER RIGHT 1 VIEW RAD - Routine (most inpatients and all outpatients) 01/04/2024 10:14 AM CDT AIRWAY MANAGEMENT Routine 01/04/2024 8:0 0 AM CDT OR INJ ANES BRACHIAL PLEX W GUIDANCE Routine 01/04/2024 7:52 AM CDT ANESTHESIOLOGY IMAGE EXAM Routine 01/04/2024 7:40 AM CDT ARTHROPLASTY REPLACEMENT TOTAL SHOULDER 01/04/2024 7:23 AM CDT Painful Total Joint Arthroplasty Initial ALI PENICILLIN SKIN TEST Routine 01/03/2024 12:45 PM CDT Allergy Penicillin Antibiotic Personal History CT SHOULDER RIGHT WITHOUT IV CONTRAST RAD - Routine (most inpatients and all outpatients) 01/03/2024 11:40 AM CDT Painful Total Joint Arthroplasty Initial DX SHOULDER RIGHT 2+ VIEWS RAD - Routine (most inpatients and all outpatients) 01/03/2024 7:44 AM CDT Painful Total Joint Arthroplasty Initial TYPE AND SCREEN Routine 01/03/2024 7:00 AM CDT Preanesthetic Medical Exam BI BREAST SCREENING BILATERAL WITH TOMOSYNTHESIS RAD - Routine (most inpatients and all outpatients) 08/02/2023 9:30 AM 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 LAB BLOOD ADD-ON [facility] [address] [place] [address], [facility] DTL [facility] [address] [place] [address] * (ABNORMAL) Basic Metabolic Panel (01/05/2024 9:17 AM CDT) [facility] Potassium, S 4.4 3.6 - 5.2 mmol/L [...] CDT Alfonso Hinojosa M.D. LAB BLOOD ADD-ON [facility] [address] [place] [address], [facility] [address] [place] [address] * DX Shoulder Right 1 View (01/04/2024 [...] Hinojosa M.D. IMG DIAGNOSTIC IMAG ING PROCEDURES * Airway (01/04/2024 8:00 AM CDT) Narrative Derek Oliver, JACK STRIP ASSEMBLER, USABILITY SPECIALIST, DNAP - 01/04/2024 8:00 AM CDT Derek Oliver APRN, CRNA, DNAP ? 01/04/2024 ??8:30 AM Airway Date/Time: 01/04/2024 8:00 AM Performed by: Derek Oliver APRN, CRNA, DNAP Authorized by: Westley Nunez D.O. ?? [...] fellow participated in the procedure, and the business continuity consultant was present for the entire procedure. Westley Nunez D.O. ANESTHESIA ORDERABLE S * OR INJ ANES BRACHIAL PLEX W GUIDANCE (01/04/2024 [...] fellow participated in the procedure, and the business continuity consultant was present for the entire procedure. Westley Nunez D.O. PROCEDURE/MINOR SURG ICAL ORDERABLES * Non-Radiology Image-Anesthesiology Image Exam (01/04/2024 7:40 [...] NON RAD IMAGI NG PROCEDURES IIMS NA * Penicillin Skin Test (01/03/2024 12:45 PM CDT) Narrative MMODAL - 01/03/2024 12:45 PM CDT Mimi Weston R.N. ? 01/03/2024 ??1:36 PM Penicillin and other antibiotic skin test ?? Flowsheet Row Clinical Support from 01/03/2024 in Division of Allergic Diseases in [place], [place] Penicillin and other antibiotics (Prick) ?? Histamine 6mg/ml prick 6x8 wheal/ 25x30 flare Diluent without preservative (Prick) 0 Benzylpencilloyl (PrePen) (Major determinant) 0 New Mix Penicillin G (Prick) 0 Alkaline Hydrolysis (Prick) (Minor determinant) 0 Ampicillin ordered? Yes Ampicillin (Prick) 0 Penicillin and other antibiotics (ID) ?? Diluent without preservative (ID) 0 Benzylpencilloyl (PrePen) (ID) (Major determinant) 0 New Mix Penicillin G (ID) 0 Alkaline Hydrolysis (ID) (Minor determinant) 0 Ampicillin (ID) 0 Erum SAMUELS, P.A.-C. PROCEDURE /MINOR SURGICAL ORDERABLES MMODAL NA * CT Shoulder Right without IV Contrast (01/03/2024 11:40 AM CDT) Anatomical Region Laterality Modality Shoulder, Upper Extremity, Musculoskeletal RST LOS, Musculoskeletal ARZ LOS, Muskuloskeletal FLA LOS Right Computed Tomography, Computed Tomography Impressions 01/03/2024 12:[address] of the right shoulder. Soft tissue anchor in the greater tuberosity from prior rotator cuff repair. Superior subluxation of the humeral head relative to the glenoid with subacromial narrowing, suspicious for recurrent tear. Mild degenerative arthritis at the glenohumeral articulation. Small amount of labral ossification posterosuperiorly. Small amount of fluid in the extra-articular long head biceps tendon sheath. Resection of the distal clavicle. Slight fatty infiltration in the supraspinatus muscle. Narrative 01/03/2024 12:08 PM CDT EXAM: ??CT SHOULDER RIGHT WITHOUT IV CONTRAST No 3D post-processing performed. COMPARISON: ??Shoulder radiographs 01/03/2024, outside MRI 06/18/2022. Procedure Note Pricilla Augustine M.D. - 01/03/2024 EXAM: CT SHOULDER RIGHT WITHOUT IV CONTRAST No 3D post-processing performed. COMPARISON: Shoulder radiographs 01/03/2024, outside MRI 06/18/2022. IMPRESSION: Noncontrast CT of the right shoulder. Soft tissue anchor in the greater tuberosity from prior rotator cuffrepair. Superior subluxation of the humeral head relative to the glenoidwith subacromial narrowing, suspicious for recurrent tear. Milddegenerative arthritis at the glenohumeral articulation. Small amount of labral ossification posterosuperiorly. Small amount of fluid in the extra-articular long head biceps tendonsheath. Resection of the distal clavicle. Slight fatty infiltration in thesupraspinatus muscle. Snow Stewart M.D. [facility] CT PROCEDURES * DX Shoulder Right 2+ Views (01/03/2024 7:44 AM CDT) Anatomical Region Laterality Modality Upper Extremity, Shoulder, M usculoskeletal RST LOS, Musculoskeletal ARZ LOS, Muskuloskeletal FLA LOS Right Digit al Radiography Impressions 01/03/2024 7:58 AM CDT Soft tissue anchor, right humeral head, likely from prior rotator cuff repair. Partial resection of the distal clavicle at the AC joint. Narrowing of the subacromial space. Glenohumeral arthritis. The bones are demineralized. Narrative 01/03/2024 7:58 AM CDT EXAM: ??DX SHOULDER RIGHT 2+ VIEWS Procedure Note Aleksandar Mauricio M.D. - 01/03/2024 EXAM: DX SHOULDER RIGHT 2+ VIEWS IMPRESSION: Soft tissue anchor, right humeral head, likely from prior rotator cuffrepair. Partial resection of the distal clavicle at the AC joint.Narrowing of the subacromial space. Glenohumeral arthritis. The bones aredemineralized. Snow Stewart M.D. IMG DIAGNOSTIC IMAGI NG PROCEDURES * Type and Screen (with Reflex Antibody ID) (01/03/2024 7:00 AM CDT) ABORh A Pos Not applicable 01/03/2024 5:37 PM CDT ETRM Antibody Screen Negative Negative 01/03/2024 5:55 PM CDT ETRM Type & Screen Expiration 03/02/2024 23:59 01/03/2024 5:37 PM CDT ETRM Testing Location [place] DEFAULT 01/03/2024 7:35 AM CDT ETRM Blood (Blood, Venous) 01/03/2024 7:00 AM CDT 01/03/2024 7:35 AM CDT Erum SAMUELS P.A.-C. 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
--- OUTSIDE RECORDS SUMMARY | 2024-01-26 13:01 | XMS_ITS | Encounter Summary ---
[facility] Address [address] [place] [id number] Care Team Providers Care Supervisor Concrete Stone Finishing Name Role Phone Elsewhere, Pcp Primary Care Provider Unavailabl e Reason for Visit * Outpatient (Routine) - Closed Specialty Diagnoses / Procedures Referred By Shiva alonso Referred To Contact Allergy and Immunology Diagnoses Allergy Penicillin Antibiotic Personal History Erum Greene MPAS, P.A.-C. [address] [place] [phone] [facility] Referral ID Status Reason Start Date Expiration Date Visits Re quested Visits Authorized [id number] Closed 10/06/2023 04/06/2025 1 1 Encounter Details Date Type Department Care Team (Latest Contact Info) Description 01/03/2024 1:30 PM CDT Comprehensive Visit Division of Allergic Diseases in [place], [place] 200 [place] [phone] Lynsey Aguillon M.D. [address] [place] [phone] Allergy Penicillin Antibiotic Personal History Social History Tobacco Use Types Packs/Day Years Used Date Smoking Tobacco: Former Cigarettes 0.5 6.8 0 10/07/1967 - 06/22/1976 Passive Smoke Exposure: Past Smokeless Tobacco: Never Comments:Situational in late teens early 20s except pregnancies Alcohol Use Standard Drinks/Week Comments Yes 2 (1 standard drink = 0.6 oz pur e alcohol) [facility] Utilities Answer Date Recorded In the past 12 months has e electric, gas, oil, or water company [...] often do you attend chur ch or presybeterian services? 1 to 4 times per year 10/04/2022 Do you belong to any clubs o r organizations such as restorationism groups, unions, fraternal or athletic groups, or [...] and heating? Not hard at all 10/04/2022 [facility] of Occupat ional Health - Occupational Stress [...] Master's degree (e.g., MA, MS, Kanwal, MEd, ORACLE PROGRAMMER, TRICE) 01/07/2021 Sex and Gender Information Value Date Recorded Sex Assigned at Female 04/03/2021 10:50 AM CDT Gender Identity Female 04/03/2021 10:50 AM CDT Sexual Orientation Not on file documented as of this encounter Consult Notes * Lynsey Aguillon M.D. - 01/03/2024 1:30 PM CDT SUBJECTIVE REFERRAL Referred by: Erum Greene MPAS, P.A.-C. CHIEF COMPLAINT / REASON FOR VISIT Evaluation of penicillin allergy HISTORY OF PRESENT ILLNESS Taisha Ramos is a 73 y.o. female who presents today for evaluation of penicillin allergy. She states she had an adverse reaction to ampicillin when she was 34 years old. She recalls receiving ampicillin and within one day, she developed a generalized itchy rash. She does not recall any angioedema, respiratory difficulty, mucous membrane involvement, or skin desquamation. She was told she was allergic to penicillin and has avoided its use since that time. Data: Mrs. Ramos underwent penicillin allergy skin testing today. She had negative penicillin allergy skin testing to both major and minor determinants. MEDICATIONS Current Outpatient Medications on File Prior to Visit Medication Sig Dispense Refill ascorbic acid (VITAMIN C ORAL) Take 1 tablet by mouth daily. Vitamin C Complex [id number]-KUCM ORAL Take 2 tablets by mouth daily. 1000 mg calcium daily w/magnesium and zinc cholecalciferol (VITAMIN D3) 50 mcg (2,000 Unit) capsule Take 50 mcg by mouth daily. codeine-guaiFENesin (ROBITUSSIN-AC) 10-100 mg/5 mL liquid as needed. collagen, hydrolysate, bovine, (collagen, hydr, bovine,, bulk,) 100 % powder Collagen Powder diclofenac sodium (VOLTAREN) 1 % gel Apply topically daily as needed. estradioL (CLIMARA) 0.075 mg/[address] 1 patch on the skin once a week. VITAMIN B COMPLEX ORAL Take 1 tablet by mouth daily. [DISCONTINUED] Ventolin HFA 90 mcg/actuation inhaler INHALE 2 PUFFS BY MOUTH FOUR TIMES A DAY NEEDED DIRECTED No current facility-administered medications on file prior to visit. ALLERGIES/ADVERSE REACTIONS Allergies Allergen Reactions Ibuprofen Other (see comments) and GI bleeding Asprin Asprin Naproxen GI bleeding Nsaids (Non-Steroidal Anti-Inflammatory Drug) Other (see comments) and GI bleeding Aspirin GI bleeding Suture (Absorbable) Other (see comments) Celecoxib Headache Rofecoxib Other (see comments) REVIEW OF SYSTEMS Pertinent positives and negatives included in the History of Present Illness. The following portions of the patient's history were reviewed and updated as appropriate: medical history, surgical history, family history, and social history. OBJECTIVE PHYSICAL EXAM There were no vitals filed for this visit. General: Alert in no acute distress. Lungs: Nonlabored respirations. Skin: No urticaria or angioedema. ASSESSMENT / PLAN #1 Allergy Penicillin Antibiotic Personal History #2 Negative penicillin allergy skin testing I discussed with Mrs. Ramos that she does not demonstrate any evidence of penicillin allergy at this time. We discussed that her risk of an allergic reaction to penicillin and to other beta-lactam antibiotics is equal to that found in the general population. We also discussed that negative penicillin allergy skin tests do not predict nonallergic reactions such as nephritis, anemia, or serum sickness. I personally spent twenty minutes in care of the patient today. Time includes both non face to faceand face to face patient care. documented in this encounter Plan of Treatment Not on file documented as of this encounter Visit Diagnoses Diagnosis Allergy Penicillin Antibiotic Personal History documented in this encounter Care Teams Supervisor Concrete Stone Finishing Relationship Specialty Start Date End Date Elsewhere, Pcp PCP - General Internal Medicine 10/01/22 documented as of this encounter
--- OUTSIDE RECORDS SUMMARY | 2024-01-26 13:01 | XMS_ITS | Encounter Summary ---
Author Organization [facility] Address [address] [place] [phone] Care Team Providers Care Knitter Helper Name Role Phone Elsewhere, Pcp Primary Care Provider Unavailabl e Reason for Visit * Reason Comments Allergy Testing Penicillin * Outpatient (Routine) - Closed Specialty Diagnoses / Procedures Referred By Shiva alonso Referred To Contact Diagnoses Allergy Penicillin Antibiotic Personal History Procedures Penicillin Skin Test Erum Greene MPAS, P.A.-C. [address] [place] [phone] [facility] Referral ID Status Reason Start Date Expiration Date Visits Re quested Visits Authorized [id number] Closed 10/06/2023 10/05/2024 1 1 Encounter Details Date Type Department Care Team (Latest Contact Info) Description 01/03/2024 12:45 PM CDT Clinical Support Division of Allergic Diseases in [place], [place] [address] [place] [phone] Erum Greene MPAS, P.A.-C. [address] [place] [phone] Mimi Weston R.N. [address] [place] [phone] Allergy Penicillin Antibiotic Personal History Social History Tobacco Use Types Packs/Day Years Used Date Smoking Tobacco: Former Cigarettes 0.5 6.8 0 10/07/1967 - 06/22/1976 Passive Smoke Exposure: Past Smokeless Tobacco: Never Comments:Situational in late teens early 20s except pregnancies Alcohol Use Standard Drinks/Week Comments Yes 2 (1 standard drink = 0.6 oz pur e alcohol) [facility] Utilities Answer Date Recorded In the [...] How often do you attend chur or evangelical services? 1 to 4 times per year 10/04/2022 Do you belong to any clubs o r organizations such as pentecostalism groups, unions, fraternal or athletic groups, or [...] and heating? Not hard at all 10/04/2022 [facility] Occupat ional Health - Occupational [...] Master's degree (e.g., MA, MS, Kanwal, MEd, INDUSTRIAL ENGINEER, TRICE) 01/07/2021 Sex and Gender Information Value Date Recorded Sex Assigned at Female 04/03/2021 10:50 AM CDT Gender Identity Female 04/03/2021 10:50 AM CDT Sexual Orientation Not on file documented as of this encounter Procedure Notes * Mimi Weston RFrancisco. - 01/03/2024 12:45 PM CDTAssociated Order(s): ALI PENICILLIN SKIN TEST Penicillin and other antibiotic skin test Flowsheet Row Clinical Support from 01/03/2024 in Division of Allergic Diseases in [place], [place] Penicillin and other antibiotics (Prick) Histamine 6mg/ml prick 6x8 wheal/ 25x30 flare Diluent without preservative (Prick) 0 Benzylpencilloyl (PrePen) (Major determinant) 0 New Mix Penicillin G (Prick) 0 Alkaline Hydrolysis (Prick) (Minor determinant) 0 Ampicillin ordered? Yes Ampicillin (Prick) 0 Penicillin and other antibiotics (ID) Diluent without preservative (ID) 0 Benzylpencilloyl (PrePen) (ID) (Major determinant) 0 New Mix Penicillin G (ID) 0 Alkaline Hydrolysis (ID) (Minor determinant) 0 Ampicillin (ID) 0 documented in this encounter Plan of Treatment Not on file documented as of this encounter Procedures Procedure Name Priority Date/Time Associated Diagnosis Comments ALI PENICILLIN SKIN TEST Routine 01/03/2024 12:45 PM CDT Allergy Penicillin Antibiotic Personal History documented in this encounter Results * Penicillin Skin Test (01/03/2024 12:45 PM CDT) Narrative MMODAL - 01/03/2024 12:45 PM CDT Mimi Weston RFrancisco. ? 01/03/2024 ??1:36 PM Penicillin and other antibiotic skin test ?? Flowsheet Row Clinical Support from 01/03/2024 in Division of Allergic Diseases in [place], [place] Penicillin and other antibiotics (Prick) ?? [...] (Minor determinant) 0 Ampicillin (ID) 0 Erum Greene MPAS, P.A.-C. PROCEDURE /MINOR SURGICAL ORDERABLES MMODAL NA documented in this encounter Visit Diagnoses Diagnosis Allergy Penicillin Antibiotic Personal History documented in this encounter Care Teams Knitter Helper Relationship Specialty Start Date End Date Elsewhere, Pcp PCP - General Internal Medicine 10/01/22 documented as of this encounter
--- OUTSIDE RECORDS SUMMARY | 2024-01-26 13:01 | XMS_ITS | Encounter Summary ---
Author Organization [facility] Address [address] [place] [address] Care Team Providers Care Call Center Support Consultant Name Role Phone Elsewhere, Pcp Primary Care Provider Unavailabl e Encounter Details Date Type Department Care Team (Late st Contact Info) Description 01/04/2024 7:25 AM CDT - 01/04/2024 10:09 AM CDT Surgery [facility] [address] [place] [phone] Hector Gonzales M.D. [address] [place] [phone] ARTHROPLASTY REPLACEMENT TOTAL SHOULDER. Social History Tobacco Use Types Packs/Day Years Used Date Smoking Tobacco: Former Cigarettes 0.5 6.8 0 10/07/1967 - 06/22/1976 Passive Smoke Exposure: Past Smokeless Tobacco: Never Comments:Situational in late teens early 20s except pregnancies Alcohol Use Standard Drinks/Week Comments Yes 2 (1 standard drink = 0.6 oz pur e alcohol) [facility] Utilities Answer Date Recorded In the [...] often do you attend chur ch or cheondoism services? 1 to 4 times per year [...] and heating? Not hard at all 10/04/2022 [facility] of Occupat ional Health - Occupational [...] your living situation today? I have a [facility] place to live 12/27/2023 Education Answer Date Recorded What is the highest level of school you have completed or the highest degree you have received? Master's degree (e.g., MA, MS, Kanwal, MEd, COPPERSMITH APPRENTICE, TRICE) 01/07/2021 Sex and Gender Information Value Date Recorded Sex Assigned at Female 04/03/2021 10:50 AM CDT Gender Identity Female 04/03/2021 10:50 AM CDT Sexual Orientation Not on file documented as of this encounter Last Filed Vital Signs Vital Sign Reading Time Taken Comments Blood Pressure 147/80 01/04/2024 5:52 AM CDT Pulse 74 01/04/2024 5:52 AM CDT Temperature 36.3 ??C (97.3 ??F) 01/04/2024 5:52 AM CD T Respiratory Rate 16 01/04/2024 5:52 AM CDT Oxygen Saturation 99% 01/04/2024 5:52 AM CDT Inhaled Oxygen Concentration - - Weight 45.8 kg (100 lb 15.5 oz) 01/04/2024 5:52 AM CDT Height 155 cm (5' 1.02) 01/04/2024 5:52 AM CDT Body Mass Index 19.06 01/04/2024 5:52 AM CDT documented in this encounter Discharge Summaries * Alfonso Hinojosa M.D. - 01/05/2024 7:34 AM CDT DISCHARGE SUMMARY BRIEF OVERVIEW Hospital: [facility] Discharge Provider: Hector Gonzales M.D. Primary Team: [facility] Orthopedic Surgery - [facility] Primary Care Providers: [...] For any further details please see the [facility] orthopedic surgery progress note and any other co-managing teams dated 01/05/2024. CONSULTS ORDERED DURING THIS ADMISSION None CONDITION AT DISCHARGE stable Discharge instructions were provided to the patient and caregiver(s). Total time spent in discharge services today: 30 minutes. documented in this encounter Discharge Instructions * Attachments The following attachments cannot be sent through Care Everywhere. * Oxycodone, Rapid Release (By mouth) (Ugandan) documented in this encounter Medications at Time [...] tablet by mouth daily. Vitamin C Complex [id number]-[id number] ORAL Take 2 tablets by mouth daily. [...] 3:47 PM CDT Orthopedic Service: Dr. Gonzales Hospital Admission Day: 01/04/2024 Postoperative Day: 0 [...] pm, please page Dr. Gonzales's service at [phone] any questions or concerns. For urgent matters from 6 pm until 6 am, please page Ortho House at [phone]. * Tatianna Hidalgo, Pharm.DZac, R.Ph., BCPS - 01/04/2024 5:58 AM CDT Images from the original note were not included. Admission Medication History Note Medication list source: Patient and Pharmacy or dispense records Medication related information: recently completed albuterol, doxycyline, and prednisone for bronchitis. Prior to Admission Medications Med List Status: Pharmacy Complete Set By: Tatianna Hidalgo, Pharm.DZac, R.Ph., BCPS at 01/04/2024 5:58 AM Taking? Last Dose Informant Start Date End Date LT ascorbic acid (VITAMIN C ORAL) Past Week at a few days ago -- -- -- Take 1 tablet by mouth daily. Vitamin C Complex [id number]-VAMW ORAL Past Week at a few days [...] this encounter Consult Notes * Jenni Tripp P.T., D.P.T. - 01/05/2024 12:24 PM CDT Physical [...] 73 y.o. female who was admitted to [facility] in [place] on 01/04/2024 for Painful Total Joint Arthroplasty [...] 4 Sensation/Perception: Addressed, no impairments Outcome Measures: [facility] Inpatient Short Form: -[facility] Basic Mobility (V.2) How much help from [...] Climbing 3-5 steps with a railing?: None -[facility] Basic Mobility (V.2) Raw Score: 24 -[facility] Basic Mobility (V.2) Standardized Score: 57.68 Interpretation: Based on scoring guidelines using the raw score value: Those going to home had an average score at or above 18 Those going to facility had an average score at or below 17 Clinicians answer the -PAC Inpatient Short Form based on observed patient [...] forearm sleeve, to not interrupt finger motion. InLambert Contractset message was sent via patient portal with [...] Handouts provided today: Exercises Following Shoulder Surgery (FI2800) , Shoulder Replacement Surgery Videos ([id number]) The patient's status was discussed and the following coordination of care occurred with the stretching machine tender frame/Caregiver Present: Yes, spouse, Jose Alfredo Patient was [...] Time (min): 54 min Jenni Tripp P.T., Fredo.P.T. documented in this encounter OR Notes * Op Note - Hector Gonzales M.D. - 01/04/2024 8:45 AM CDT Pre-op Diagnosis Painful Total Joint Arthroplasty Initial Post-op Diagnosis Painful Total Joint Arthroplasty Initial Sales Marketing Coordinator A dental assistant teacher was necessary for one or more [...] Diagnoses Orde r Schedule [facility] Referral Routine Painful Total Joint Arthroplasty [...] with Differential, Blood (01/05/2024 9:17 AM CDT) Pathologist [facility] Hemoglobin 11.4(L) 11.6 - 15.0 g/dL 01/05/2024 [...] CDT Alfonso Hinojosa M.D. LAB BLOOD ADD-ON [facility] [address] [place] [address], [facility] DTL [facility] [address] [place] [address] [facility] [address] [place] [address] * (ABNORMAL) Basic Metabolic Panel (01/05/2024 9:17 AM CDT) Potassium, S 4.4 3.6 - 5.2 mmol/L [...] CDT Alfonso Hinojosa M.D. LAB BLOOD ADD-ON [facility] [address] [place] [address], [facility] [address] [place] [phone] * DX Shoulder Right 1 View (01/04/2024 [...] reverse TSA. Negative for PO purposes. Alfonso [facility]YLER DIAGNOST[facility] IMAG ING PROCEDURES documented in this encounter Visit Diagnoses Diagnosis Painful Total Joint Arthroplasty Initial- Primary Painful Total Joint Arthroplasty Initial Pain Shoulder Right [M25.511] Painful Total Joint Arthroplasty Initial documented in this encounter Admitting Diagnoses Diagnosis [...] Pre-Op 0651 (Given - Provider: Gabrielle Hagan R.N.) ceFAZolin in dextrose (iso osm) IVPB 2 [...] 1647 (New Bag - Provider: Ines Montemayor R.N.) 0046 (New Bag - Provider: Catie Araujo RZacN.) ceFAZolin injection 2,000 mg (ANCEF) (COMPLETED) 2,000 [...] Prophylaxis, surgical 0837 (Given - Provider: Derek Oliver APRN, ANNAMARIA, DNAP) fosaprepitant in NaCl 0.9% IVPB 150 mg (EMEND) (COMPLETED) 150 mg, intravenous, at 500 mL/hr, Administer over 30 Minutes, Once, On Tue01/04/24 at 0715, For 1 dose, Intra-Op, Incompatible with solutions containing divalent cations (calcium, magnesium) including lactated Ringer's solution., Restriction Criteria (Pharmacy will review and approve if criteria met): Use in the perioperative setting 0735 (New Bag - Provider: Gabrielle Hagan R.N.) sennosides-docusate sodium 8.6-50 mg per tablet 1 tablet (SENOKOT-S) 1 tablet, oral, 2 times daily, First dose on Tue01/04/24 at 2100, Do not give if patient has diarrhea. 2020 (Given - Provider: Catie Araujo RNaomi) 0848 (Given - Provider: Josh Oates RZacNZac) tranexamic acid in NaCl IVPB 1,000 mg (CYKLOKAPRON) (COMPLETED) 1,000 mg (1 g), intravenous, at 300 mL/hr, Administer over 20 Minutes, Once, On Tue01/04/24 at 0730, For 1 dose, Intra-Op, Administer in OR upon induction 0810 (Given - Provider: Derek Oliver APRN, ANNAMARIA, DNAP) tranexamic acid in NaCl IVPB 1,000 mg (CYKLOKAPRON) (COMPLETED) 1,000 mg (1 g), intravenous, at 300 mL/hr, Administer over 20 Minutes, Once, On Tue01/04/24 at 0730, For 1 dose, Intra-Op, Administer in OR just before dropping tourniquet 0930 (Given - Provider: Miya Leblanc APRN, ANNAMARIA, MNA) Continuous Medication Order 01/03/2024 01/04/2024 01/05/2024 [...] order. documented in this encounter Care Teams Call Center Support Consultant Relationship Specialty Start Date End Date Elsewhere, Pcp PCP - General Internal Medicine 10/01/22 documented as of this encounter
--- OUTSIDE RECORDS SUMMARY | 2024-01-26 13:01 | XMS_ITS ---
Author Organization [facility] Address [address] [place] [address] Care Team Providers Care Battery Parts Assembler Name Role Phone Unavailable Unavailable Unavailable Surgery Details Not on file Complications Check Surgery Details section. Procedure Estimated Blood Loss Check Surgery Details section. Procedure Findings Check Surgery Details section. Procedure Specimens Taken Check Surgery Details section.
--- OUTSIDE RECORDS SUMMARY | 2024-01-26 13:01 | XMS_ITS | Referral Summary ---
Author Organization [facility] Address [address] [place] [address] Care Team Providers Care Driver/Sales Workers Name Role Phone Elsewhere, Pcp Primary Care Provider Unavailabl e Source Comments Patient records contain information from all sites at [facility]. For routine questions regarding patient records, call [phone] during business hours, M-F 8:00 AM - 5:00 PM Central Time. Record requests for emergency care only can be directed to [phone] at any time.[facility] Encounters Date Type Department Care Team Description 01/04/2024 5:33 AM CDT - 01/05/2024 1:32 PM CDT Hospital Encounter [facility], [facility], Ninth Floor [address] [place] [address] Hector Gonzales M.D. Painful Total Joint Arthroplasty Initial (Primary Dx); Pain Shoulder Right [M25.511] Discharge Disposition: Home or Self Care 01/04/2024 7:40 AM CDT Ancillary Procedure Department of Anesthesiology 01/04/2024 7:25 AM CDT - 01/04/2024 10:09 AM CDT Surgery [facility] MAIN OR [address] [place] [address] Hector Gonzales M.D. ARTHROPLASTY REPLACEMENT TOTAL SHOULDER. 01/04/2024 7:43 AM CDT Anesthesia Event [facility] MAIN OR [address] [place] [address] Westley Nunez D.O. 01/03/2024 1:30 PM CDT Comprehensive Visit Division of Allergic Diseases in [place], [place] [address] [place] [address] Lynsey Aguillon M.D. Allergy Penicillin Antibiotic Personal History 01/03/2024 12:45 PM CDT Clinical Support Division of Allergic Diseases in [place], [place] [address] [place] [address] Erum Greene MPAS, P.A.-C. Mimi Weston, RFrancisco. Allergy Penicillin Antibiotic Personal History 01/03/2024 10:09 AM CDT - 01/03/2024 11:59 PM CDT Hospital Encounter Department of Radiology, [facility] in [place], [place] [address] [place] [address] Snow Stewart M.D. Painful Total Joint Arthroplasty Initial Discharge Disposition: Home or Self Care 01/03/2024 9:00 AM CDT Comprehensive Visit Preoperative Evaluation Center in [place], [place] [address] [place] [address] Snow Stewart M.D. Renny Jiang APRN, C.N.P., M.S.N. Preanesthetic Medical Exam (Primary Dx); Post Operative Nausea/Vomiting; Painful Total Joint Arthroplasty Initial ; Hypertension Essential Primary; Hyperlipidemia 01/03/2024 6:40 AM CDT - 01/03/2024 7:04 AM CDT Hospital Encounter Department of Laboratory Medicine and Pathology, [facility] in [place], [place] [address] [place] [address] Erum Greene MPAS, P.A.-C. Preanesthetic Medical Exam Discharge Disposition: Home or Self Care 01/03/2024 8:15 AM CDT Office Visit Department of Orthopedic Surgery in [place], [place] [address] [place] [address] Hector Gonzales M.D. Pain Shoulder Right (Primary Dx) 01/03/2024 7:05 AM CDT - 01/03/2024 10:08 AM CDT Hospital Encounter Department of Radiology, [facility], in [place], [place] [address] [place] [phone] Snow Stewart M.D. Painful Total Joint Arthroplasty Initial Discharge Disposition: Home or Self Care 12/30/2023 10:00 AM CDT Clinical Communication Virtual Review in [place], [place] [address] [place] [address] Pre-visit Intake 12/28/2023 Clinical Communication Department of Orthopedic Surgery in [place], [place] [address] [place] [address] Liseth Ohara L.PZacN. Discharge Summary from Last 3 Months Allergies Active Allergy [...] Thumb Left 05/26/2021 Hypertension Essential Primary 08/29/2013 Immunizations Name Administration Dates Next Due [...] drink = 0.6 oz pur e alcohol) [facility] Utilities Answer Date Recorded In the past [...] often do you attend chur ch or taoist services? 1 to 4 times per year 10/04/2022 Do you belong to any clubs o r organizations such as mandaen groups, unions, fraternal or athletic groups, or [...] all 10/04/2022 [facility] - Occupational Stress Questionnaire Answer Date [...] your living situation today? I have a [facility] place to live 12/27/2023 Education Answer Date Recorded What is the highest level of school you have completed or the highest degree you have received? Master's degree (e.g., MONY, MS, Kanwal, MEd, ROCKET MOTOR MECHANIC, TRICE) 01/07/2021 Sex and Gender Information [...] 01/04/2024 5:52 AM CDT Plan of Treatment Not on file Medical Devices Implanted Type Area Chemist Assistant Device Identifier Shelf Expiration Date Model / Serial / Lot R Shoulder Hardware e.g. pins/screw s/rods Right: Shoulder Mini Stealth All-Suture [place], With One #2 Suture Implanted:Qt y: 1 on 01/04/2024 by Hector Gonzales M.D. at [facility] Hardware e.g. pins/screw s/rods Right: Shoulder Responsive Arthroscopy [id number] 03/28/2024 [id number] / / [id number] Scrw Cmp 6.5x30 - [id number] Implanted:Qt y: 1 on 01/04/2024 by Hector Gonzales M.D. at [facility] Hardware e.g. pins/screw s/rods Right: Shoulder [employer] 10/27/2033 [id number] / / [id number] Screw 3.5 Hex Lck 4.75x20 - [id number] Implanted:Qt y: 1 on 01/04/2024 by Hector Gonzales M.D. at [facility] Hardware e.g. pins/screw s/rods Right: Shoulder [employer] 11/25/2033 [id number] / / [id number] Screw 3.5 Hex Lck 4.75x30 - [id number] Implanted:Qt y: 1 on 01/04/2024 by Hector Gonzales M.D. at [facility] Hardware e.g. pins/screw s/rods Right: Shoulder [employer] 09/13/2033 [id number] / / [id number] Screw 3.5 Hex Lck 4.75x15 - [id number] Implanted:Qt y: 1 on 01/04/2024 by Hector Gonzales M.D. at [facility] Hardware e.g. pins/screw s/rods Right: Shoulder [employer] 11/28/2033 [id number] / / [id number] Screw 3.5 Hex Lck 4.75x15 - [id number] Implanted:Qt y: 1 on 01/04/2024 by Hector Gonzales M.D. at [facility] Hardware e.g. pins/screw s/rods Right: Shoulder [employer] 11/27/2033 [id number] / / [id number] Mini Stealth All-Suture [place], With One #2 Suture Implanted:Qt y: 1 on 01/04/2024 by Hector Gonzales M.D. at [facility] Hardware e.g. pins/screw s/rods Right: Shoulder Responsive Arthroscopy [id number] 03/28/2024 [id number] / / [id number] Mini Stealth All-Suture [place], With One #2 Suture Implanted:Qt y: 1 on 01/04/2024 by Hector Gonzales M.D. at [facility] Hardware e.g. pins/screw s/rods Right: Shoulder Responsive Arthroscopy [id number] 03/28/2024 [id number] / / [id number] Mini Stealth All-Suture [place], With One #2 Suture Implanted:Qt y: 1 on 01/04/2024 by Hector Gonzales M.D. at [facility] Hardware e.g. pins/screw s/rods Right: Shoulder Responsive Arthroscopy [id number] 03/28/2024 [id number] / / [id number] Bsplt Glnd Cmp Rv Aug Sm - [id number] Implanted:Qt y: 1 on 01/04/2024 by Hector Gonzales M.D. at [facility] Shoulder Implant Right: Shoulder [employer] 12/04/2028 [id number] / / [id number] Bsplt Glnd Cmp 36 - [id number] 6 Implanted:Qt y: 1 on 01/04/2024 by Hector Gonzales M.D. at [facility] Shoulder Implant Right: Shoulder [employer] 10/31/2033 [id number] / / [id number] Hum Stm Cmp 5 - [id number] Implanted:Qt y: 1 on 01/04/2024 by Hector Gonzales M.D. at [facility] Shoulder Implant Right: Shoulder [employer] 05/29/2031 [id number] / / [id number] Hum Tr Cmp Rvrs Std +6 - [id number] Implanted:Qt y: 1 on 01/04/2024 by Hector Gonzales M.D. at [facility] Shoulder Implant Right: Shoulder [employer] [id number] 10/14/2033 [id number] / / [id number] Hum Brng Cmp Vve Rvrs Std 36 - [id number] Implanted:Qt y: 1 on 01/04/2024 by Hector Gonzales M.D. at [facility] Shoulder Implant Right: Shoulder [employer] [id number] 10/29/2028 [id number] / / [id number] Procedures Procedure Name Priority Date/Time Associated Diagnosis Comments CBC WITH DIFFERENTIAL, B Routine 01/05/2024 9:17 AM CDT BASIC METABOLIC PANEL, S/P Routine 01/05/2024 9:17 AM CDT DX SHOULDER RIGHT 1 VIEW RAD - Routine (most inpatients and all outpatients) 01/04/2024 10:14 AM CDT AIRWAY MANAGEMENT Routine 01/04/2024 8:0 0 AM CDT SC INJ ANES BRACHIAL PLEX W GUIDANCE Routine [...] inpatients and all outpatients) 08/02/2023 9:30 AM DIRECTOR FRANCHISE SALES from Last 3 Months or Most Recently [...] CDT Alfonso Hinojosa M.D. LAB BLOOD ADD-ON [facility] [address] [place] [address], [facility] DTL [facility] [address] [place] [address] * (ABNORMAL) Basic Metabolic Panel (01/05/2024 9:17 AM CDT) [facility] Potassium, S 4.4 3.6 - 5.2 mmol/L [...] CDT Alfonso Hinojosa M.D. LAB BLOOD ADD-ON [facility] [address] [place] [address], [facility] [address] [place] [address] * DX Shoulder Right 1 View (01/04/2024 [...] 8:00 AM CDT) Narrative Derek Oliver APRN, CURRICULUM AND ASSESSMENT COORDINATOR, DNAP - 01/04/2024 8:00 AM CDT BrytowskiDerek APRN, CRNA, DNAP ? 01/04/2024 ??8:30 AM [...] fellow participated in the procedure, and the center lead consultant was present for the entire procedure. Westley Nunez D.O. ANESTHESIA ORDERABLE S * SC INJ ANES BRACHIAL PLEX W GUIDANCE (01/04/2024 [...] fellow participated in the procedure, and the center lead consultant was present for the entire procedure. [...] 01/03/2024 in Division of Allergic Diseases in [place], [place] Penicillin and other antibiotics (Prick) ?? [...] infiltration in thesupraspinatus muscle. Snow Stewart M.D. [facility] CT PROCEDURES * DX Shoulder Right 2+ [...] 01/03/2024 5:37 PM CDT ETRM Testing Location [place] DEFAULT 01/03/2024 7:35 AM CDT ETRM Blood (Blood, Venous) 01/03/2024 7:00 AM CDT 01/03/2024 7:35 AM CDT Erum SAMUELS, P.A.-C. LAB BLOOD BANK TEST ORDERABLES [facility] [address] [place] [address], [facility] ETRM [facility] [address] [place] [address] from Last 3 Months or Most Recently Relevant to Health Maintenance Advance Directives For more information, please contact: [phone] * Full Code (Latest Code Status on File) Date Activated Date Inactivated Comments 01/04/2024 1:24 PM 01/05/2024 3:37 PM Question Answer Comments Full Code: Not Discussed Due to: Patient not available Care Teams Driver/Sales Workers Relationship Specialty Start Date End Date Elsewhere, Pcp PCP - General Internal Medicine 10/01/22
--- OUTSIDE RECORDS SUMMARY | 2024-01-26 13:02 | XMS_ITS | Encounter Summary ---
Author Organization [facility] Address [address] [place] [address] Care Team Providers Care Soil Chemist Name Role Phone Elsewhere, Pcp Primary Care Provider Unavailabl e Reason for Visit * Reason Onset Date Comments Discharge Summary 12/28/2023 Encounter Details Date Type Department Care Team (Latest Contact Info) Description 12/28/2023 Clinical Communication Department of Orthopedic Surgery in [place], [place] [address] [place] [address] Liseth Ohara, FranklynP.N. Discharge Summary Social History Tobacco Use Types Packs/Day Years Used Date Smoking Tobacco: Former Cigarettes Q uit: 1975 Passive Smoke Exposure: Past Smokeless Tobacco: Never [facility] Utilities Answer Date Recorded In the past 12 months has [facility] [place], gas, oil, or water [employer] threatened to shut off services in your [...] How often do you attend chur or jehovah's witness services? 1 to 4 times per year 10/04/2022 Do you belong to any clubs o r organizations such as baptist groups, unions, fraternal or athletic groups, or [...] and heating? Not hard at all 10/04/2022 [facility] - [...] your living situation today? I have a [facility] place to live 12/27/2023 Education Answer Date Recorded What is the highest level of school you have completed or the highest degree you have received? Master's degree (e.g., MA, MS, Kanwal, MEd, SHOE STAINER, TRICE) 01/07/2021 Sex and Gender Information Value Date Recorded Sex Assigned at Female 04/03/2021 10:50 AM CDT Gender Identity Female 04/03/2021 10:50 AM CDT Sexual Orientation Not on file documented as of this encounter Miscellaneous Notes * Telephone Encounter - Liseth Ohara, L.P.N. - 12/28/2023 1:57 PM CDT REASON FOR CALL Discharge Planning Type of Surgery: Total Shoulder Arthroplasty Primary Caregiver following hospital discharge: Leon Ramos The following information was provided: Equipment and Supplies On the day of the surgery, bring a front wheeled walker or crutches (not a walker with brakes and the seat). If you do not have a walker or crutches, one will be provided for you in the hospital. There is not a need to purchase a walker or crutches before your surgery. Bring your CPAP if you have one. Wear comfortable loose-fitting clothing. Bring your glasses, hearing aids, or dentures if you wear them. Medications Bring a medication list, not the medication bottles. The patient is not taking blood thinning medications. The patient is not taking diabetic, transplant, or rheumatoid medications. If you are you currently taking any medications for diabetes, blood thinners, transplant, or rheumatoid, both the health care provider who manages these medications and the provider doing your procedure will need to decide if your medications need to change prior to surgery. Contact the health care provider who manages these medications about whether you should stop takingthem before the procedure and for how long. After the procedure, the health care provider who manages these medications and the provider doing your procedure will need to decide when to restart these medications. Information/Education: patient/caller able to teach back The following references were used: nursing clinical judgement documented in this encounter Plan of Treatment Not on file documented as of this encounter Visit Diagnoses Not on filedocumented in this encounter Care Teams Soil Chemist Relationship Specialty Start Date End Date Elsewhere, Pcp PCP - General Internal Medicine 10/01/22 documented as of this encounter
--- OUTSIDE RECORDS SUMMARY | 2024-01-26 13:02 | XMS_ITS | Encounter Summary ---
Author Organization [facility] Address [address] [place] [address] Care Team Providers Care Investigation Division Sergeant Name Role Phone Elsewhere, Pcp Primary Care Provider Unavailabl e Reason for Visit * Outpatient (Routine) - Closed Specialty Diagnoses / Procedures Referred By Shiva alonso Referred To Contact Anesthesiology Diagnoses Painful Total Joint Arthroplasty Initial Snow Stewart M.D. [address] [place] [phone] [facility] Referral ID Status Reason Start Date Expiration Date Visits Re quested Visits Authorized [id number] Closed 08/11/2023 08/10/2024 1 1 Encounter Details Date Type Department Care Team (Latest Contact Info) Description 01/03/2024 9:00 AM CDT Comprehensive Visit Preoperative Evaluation Center in [place], [place] [address] [place] [phone] Snow Stewart M.D. [address] [place] [phone] Renny Jiang APRN, C.N.P., M.S.N. [address] [place] [phone] Preanesthetic Medical Exam (Primary Dx); Post Operative Nausea/Vomiting; Painful Total Joint Arthroplasty Initial ; Hypertension Essential Primary; Hyperlipidemia Social History Tobacco Use Types Packs/Day Years Used Date Smoking Tobacco: Former Cigarettes 0.5 6.8 0 10/07/1967 - 06/22/1976 Passive Smoke Exposure: Past Smokeless Tobacco: Never Tobacco Cessation:Counseling Given: Not Answered Comments:Situational in late teens early 20s except pregnancies Alcohol Use Standard Drinks/Week Comments Yes 2 (1 standard drink = 0.6 oz pur e alcohol) [facility] Utilities Answer Date Recorded In the past 12 months has e [place], oil, or water [email or web address] threatened to shut off services in your [...] How often do you attend chur or gnosticism services? 1 to 4 times per year 10/04/2022 Do you belong to any clubs o r organizations such as lutheran groups, unions, fraternal or athletic groups, or [...] and heating? Not hard at all 10/04/2022 [facility] - Occupational Stress Questionnaire Answer Date Recorded [...] your living situation today? I have a [facility] place to live 12/27/2023 Education Answer Date Recorded What is the highest level of school you have completed or the highest degree you have received? Master's degree (e.g., MA, MS, Kanwal, MEd, PRODUCT/DEVICE TECHNOLOGIST, TRICE) 01/07/2021 Sex and Gender Information Value Date Recorded Sex Assigned at Female 04/03/2021 10:50 AM CDT Gender Identity Female 04/03/2021 10:50 AM CDT Sexual Orientation Not on file documented as of this encounter Last Filed Vital Signs Vital Sign Reading Time Taken Comments Blood Pressure 129/85 01/03/2024 8:51 AM CDT Pulse 67 01/03/2024 8:51 AM CDT Temperature 36 ??C (96.8 ??F) 01/03/2024 8:51 AM CDT Respiratory Rate - - Oxygen Saturation 100% 01/03/2024 8:51 AM CDT Inhaled Oxygen Concentration - - Weight 46.8 kg (103 lb 2.8 oz) 01/03/2024 8:51 A M CDT Height 160 cm (5' 2.99) 01/03/2024 8:51 AM CDT Body Mass Index 18.28 01/03/2024 8:51 AM CDT documented in this encounter Consult Notes * Renny Jiang, CHRIS, C.N.P., M.S.N. - 01/03/2024 9:00 AM CDT REASON FOR VISIT: Preoperative Medical Evaluation REFERRING PHYSICIAN: Snow Stewart M.D. 01/04/2024: ARTHROPLASTY REPLACEMENT TOTAL SHOULDER; Hector Gonzales M.D. Surgery Specific Risk Classification: Intermediate Risk SUBJECTIVE HISTORY OF PRESENT ILLNESS Taisha Ramos is a 73 y.o. female who is here for preanesthetic medical examination prior to the planned procedure as listed above. REVIEW OF SYSTEMS Respiratory: Positive for coughing up mucus (phlegm). The following systems were negative: Constitutional, Cardiovascular, Neurological OBJECTIVE OBJECTIVE PHYSICAL EXAMINATION General/Constitutional Constitutional Assessment: Normal General State of Health: Healthy appearing Airway (HEENT) Mallampati: II TM Distance: >3 FB Neck ROM: Full Mouth Opening: > 3 cm Upper Lip Bite Test: I Dental Assessment: Dentition intact Cardiovascular Rhythm: Regular Rate: Normal Cardiovascular Assessment: Normal Pulmonary Pulmonary Assessment: Clear and non labored Neurological Neurologic Assessment: Alert and oriented X 3 Musculoskeletal MSK Assessment: Normal Gait: Normal Ambulate with: None Psychiatric Psychiatric Assessment: Calm Dermatology Skin Assessment: normal ASSESSMENT / PLAN Anesthesia: Patient reports previous anesthesia related complications. Patient reports a past history of postop nausea and vomiting. In the past this has been improved with antiemetics given perioperatively. Airway Hx: 08/23/2016 - 1st attempt with LMA #3, leak noted after placement. 2nd attempt successfulwith LMA #4. LAB: T&S drawn today, results not yet available at time of consultation. Lab Results Component Value Date NA 138 08/05/2023 KSERUM 4.3 08/05/2023 CREATININE 0.72 08/05/2023 ECG 07/05/2016 (DV): Sinus bradycardia #1 Preanesthetic Medical Exam Substance use: Remote history of social/minimal tobacco use. Consumes 2 servings of alcohol per week. Denies illicit drug/marijuana use. Activity tolerance: Able to walk up two flights of steps or 4 city blocks without chest pain or shortness of breath. Denies family history of premature coronary artery disease, anesthesia reactions, bleeding/clottingdisorders. Denies personal history of blood transfusion, bleeding/clotting problems, radiation/chemotherapy, prior neck/spine injuries/procedures, swallowing difficulties and denies anything chipped/cracked/loose/removable in the mouth. Reports steroid use in the past year: Finished a 7 day burst of steroids for bronchitis about a week ago. She reports her symptoms are resolved now other than a very minimal cough, she reports she will cough maybe 3 times per day now and notes it is getting better every day. She notes she feels shewas given medications for this illness as she was adamant that she not have her surgery delayed forher illness, but ultimately feels she did not require treatment and would have recovered at the same rate with or without treatment. She denies any other s/s of infection or illness today and generally feels well. #2 Post Operative Nausea/Vomiting See above. #3 Painful Total Joint Arthroplasty Initial This is the reason for surgery. Please see the surgical service consultation notes for full details. #4 Hypertension Essential Primary Blood pressure is in acceptable range today. Not currently maintained on any medications for this. #5 Hyperlipidemia Not currently maintained on any medications for this. RECOMMENDATIONS: Patient medically optimized for planned procedure: Yes Further Recommendations: None PATIENT EDUCATION: Instructions To Get Ready for Your Surgery or Procedure: [facility]?? 3596-07 rev 0124. Verbal instructions given on medication management before surgery. Reviewed instructions on avoiding aspirin, ibuprofen- containing medications, and supplements one week before surgery. Patient may take acetaminophen as needed for pain. Evening before your surgery: The evening before your procedure at about 8:15 p.m. [facility] will inform you of the time to arrive the next day using one of these methods: - A text -or- An automated phone call If you have not received a text or a phone call by 8:45 p.m. or if you prefer to call after 8:15 p.m. to get the information: - Please call [phone] (automated) or [phone] (live circular head saw operator) to learn report time for surgery next day. Phone system will ask for [facility] number and date of . Fasting for Adults: - 8 hours before your report time stop eating solid foods. - 6 hours before your report time stop drinking any non clear liquids such as: milk, soy/almond milk, orange juice, or tomato juice. - 1 hour before your report time stop drinking clear liquids. Clear Liquids: - Water, clear fruit juice (apple/white grape), carbonated beverages, clear broth, gelatin, ice pops or popsicles, and clear tea or black coffee (no milk or creamer). I spent 60 minutes face to face and non-face to face caring for the patient today. documented in this encounter Plan of Treatment Not on file documented as of this encounter Visit Diagnoses Diagnosis Preanesthetic Medical Exam- Primary Post Operative Nausea/Vomiting Painful Total Joint Arthroplasty Initial Hypertension Essential Primary Hyperlipidemia documented in this encounter Care Teams Investigation Division Sergeant Relationship Specialty Start Date End Date Elsewhere, Pcp PCP - General Internal Medicine 10/01/22 documented as of this encounter
--- OUTSIDE RECORDS SUMMARY | 2024-01-26 13:02 | XMS_ITS | Encounter Summary ---
Author Organization [facility] Address [address] [place] [address] Care Team Providers Care Mechanical Inspector Name Role Phone Elsewhere, Pcp Primary Care Provider Unavailabl e Reason for Referral * MRI/CAT/PET Scan (Routine) - Closed Specialty Diagnoses / Procedures Referred By Contac t Referred To Contact Radiology Diagnoses Painful Total Joint Arthroplasty Initial Procedures CT Shoulder Right without IV Contrast Snow Stewart M.D. [address] [place] [address] [facility] Referral ID Status Reason Start Date Expiration Date Visits Re quested Visits Authorized [id number] Closed 08/11/2023 08/10/2024 1 1 Reason for Visit * MRI/CAT/PET Scan (Routine) - Closed Specialty Diagnoses / Procedures Referred By Shiva alonso Referred To Contact Radiology Diagnoses Painful Total Joint Arthroplasty Initial Procedures CT Shoulder Right without IV Contrast Snow Stewart M.D. [address] [place] [address] [facility] Referral ID Status Reason Start Date Expiration Date Visits Re quested Visits Authorized [id number] Closed 08/11/2023 08/10/2024 1 1 Encounter Details Date Type Department Care Team (Latest Contact Info) Description 01/03/2024 10:09 AM CDT - 01/03/2024 11:59 PM CDT Hospital Encounter Department of Radiology, [facility], in [place], [place] [address] [place] [address] Snow Stewart M.D. [address] [place] [address] Painful Total Joint Arthroplasty Initial Discharge Disposition: Home or Self Care Social History Tobacco Use Types Packs/Day Years Used Date Smoking Tobacco: Former Cigarettes 0.5 6.8 0 10/07/1967 - 06/22/1976 Passive Smoke Exposure: Past Smokeless Tobacco: Never Comments:Situational in late teens early 20s except pregnancies Alcohol Use Standard Drinks/Week Comments Yes 2 (1 standard drink = 0.6 oz pur e alcohol) [facility] Utilities Answer Date Recorded In the past 12 months has [employer], gas, oil, or water [place] threatened to shut off services in your [...] week 10/04/2022 How often do you attend [facility] or shinto services? 1 to 4 times per year 10/04/2022 Do you belong to any clubs o r organizations such as scientologist groups, unions, fraternal or athletic groups, or [...] and heating? Not hard at all 10/04/2022 [facility] of Occupat ional [facility] - Occupational Stress Questionnaire Answer Date Recorded [...] your living situation today? I have a [facility] place to live 12/27/2023 Education Answer Date Recorded What is the highest level of school you have completed or the highest degree you have received? 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 Vitamin C Complex [id number] ORAL Take 2 tablets by mouth daily. [...] daily. 12/03/2016 documented as of this encounter Plan of Treatment Not on file documented as of this encounter Procedures Procedure Name Priority Date/Time Associated Diagnosis Comments CT SHOULDER RIGHT WITHOUT IV CONTRAST RAD - Routine (most inpatients and all outpatients) 01/03/2024 11:40 AM CDT Painful Total Joint Arthroplasty Initial documented in this encounter Results * CT Shoulder Right without IV Contrast [...] infiltration in thesupraspinatus muscle. Snow Stewart M.D. IMJelena CT PROCEDURES documented in this encounter Visit Diagnoses Diagnosis Painful Total Joint Arthroplasty Initial documented in this encounter Care Teams Mechanical Inspector Relationship Specialty Start Date End Date Elsewhere, Pcp PCP - General Internal Medicine 10/01/22 documented as of this encounter
--- OUTSIDE RECORDS SUMMARY | 2024-01-26 13:02 | XMS_ITS | Clinical Summary ---
Author Organization [facility] Address [address], [place] [address] Care Team Providers Care Budget Clerk Name Role Phone Eleni Deleon MD Primary Care Provider U navailable Source Comments You are receiving this document as you are listed as the primary care provider,follow-up provider, or the patient has been referred to you for consultation.This is in compliance with the Medicare and[facility] EHR Incentive Program,which states Providers who transition their patient to another setting of careor provider of care or refers their patient to another provider of care shouldprovide summary care record for each transition of care or referral. [place] Mailing Allergies Active Allergy Reactions Criticality Noted Date [...] age to complete this topic Care Teams Budget Clerk Relationship Specialty Start Date End Date Eleni Deleon MD PCP - General 03/21/13
--- OUTSIDE RECORDS SUMMARY | 2024-01-26 13:02 | XMS_ITS | Encounter Summary ---
Author Organization [facility] Address [address] [place] [address] Care Team Providers Care Heel Sorter Name Role Phone Elsewhere, Pcp Primary Care Provider Unavailabl e Encounter Details Date Type Department Care Team (Latest Contact Info) Description 01/03/2024 6:40 AM CDT - 01/03/2024 7:04 AM CDT Hospital Encounter Department of Laboratory Medicine and Pathology, [facility], in [place], [place] [address] [place] [address] Erum Greene, LAURIS, P.A.-C. [address] [place] [address] Preanesthetic Medical Exam Discharge Disposition: Home or Self Care Social History Tobacco Use Types Packs/Day Years Used Date Smoking Tobacco: Former Cigarettes 0.5 6.8 0 10/07/1967 - 06/22/1976 Passive Smoke Exposure: Past Smokeless Tobacco: Never Comments:Situational in late teens early 20s except pregnancies Alcohol Use Standard Drinks/Week Comments Yes 2 (1 standard drink = 0.6 oz pur e alcohol) [facility] Utilities Answer Date Recorded In the past [...] often do you attend chur ch or temple services? 1 to 4 times per year [...] and heating? Not hard at all 10/04/2022 [facility] of Occupat ional Health - Occupational Stress [...] your living situation today? I have a [facility] place to live 12/27/2023 Education Answer Date Recorded What is the highest level of school you have completed or the highest degree you have received? Master's degree (e.g., MA, MS, Kanwal, MEd, CLINICAL PSYCHOLOGY TEACHER, TRICE) 01/07/2021 Sex and Gender Information [...] tablet by mouth daily. Vitamin C Complex [id number] ORAL Take 2 tablets by mouth daily. [...] Procedure Name Priority Date/Time Associated Diagnosis Comments TYPE AND SCREEN Routine 01/03/2024 7:00 AM CDT Preanesthetic Medical Exam documented in this encounter Results * Type and Screen (with Reflex Antibody ID) (01/03/2024 7:00 AM CDT) ABORh A Pos Not applicable 01/03/2024 5:37 PM CDT ETRM Antibody Screen Negative Negative 01/03/2024 5:55 PM CDT ETRM Type & Screen Expiration 03/02/2024 23:59 01/03/2024 5:37 PM CDT ETRM Testing Location [place] DEFAULT 01/03/2024 7:35 AM CDT ETRM Blood (Blood, Venous) 01/03/2024 7:00 AM CDT 01/03/2024 7:35 AM CDT Erum SAMUELS, P.A.VanessaC. LAB BLOOD BANK TEST ORDERABLES Performing Organization Address City/State/[facility] Co de Phone Number [facility] [address] [place] [address], [facility] ETRM [facility] [address] [place] [address] documented in this encounter Visit Diagnoses Diagnosis Preanesthetic Medical Exam documented in this encounter Care Teams Heel Sorter Relationship Specialty Start Date End Date Elsewhere, Pcp PCP - General Internal Medicine 10/01/22 documented as of this encounter
--- OUTSIDE RECORDS SUMMARY | 2024-01-26 13:02 | XMS_ITS | Encounter Summary ---
Author Organization [facility] Address [address] [place] [address] Care Team Providers Care Quality Control Tech Name Role Phone Elsewhere, Pcp Primary Care Provider Unavailabl e Reason for Referral * Outpatient (Routine) - Closed Specialty Diagnoses / Procedures Referred By Shiva alonso Referred To Contact Diagnoses Painful Total Joint Arthroplasty Initial Procedures DX Shoulder Right 2+ Views Snow Stewart M.D. [address] [place] [address] [facility] Referral ID Status Reason Start Date Expiration Date Visits Re quested Visits Authorized [id number] Closed 08/11/2023 08/10/2024 1 1 Reason for Visit * Outpatient (Routine) - Closed Specialty Diagnoses / Procedures Referred By Shiva alonso Referred To Contact Diagnoses Painful Total Joint Arthroplasty Initial Procedures DX Shoulder Right 2+ Views Snow Stewart M.D. [address] [place] [address] [facility] Referral ID Status Reason Start Date Expiration Date Visits Re quested Visits Authorized [id number] Closed 08/11/2023 08/10/2024 1 1 Encounter Details Date Type Department Care Team (Latest Contact Info) Description 01/03/2024 7:05 AM CDT - 01/03/2024 10:08 AM CDT Hospital Encounter Department of Radiology, [facility], in [place], [place] [address] [place] [address] Snow Stewart M.D. [address] [place] [address] Painful Total Joint Arthroplasty Initial Discharge Disposition: Home or Self Care Social History Tobacco Use Types Packs/Day Years Used Date Smoking Tobacco: Former Cigarettes 0.5 6.8 0 10/07/1967 - 06/22/1976 Passive Smoke Exposure: Past Smokeless Tobacco: Never Comments:Situational in late teens early 20s except pregnancies Alcohol Use Standard Drinks/Week Comments Yes 2 (1 standard drink = 0.6 oz pur e alcohol) [facility] Utilities Answer Date Recorded In the past 12 months has e [employer], gas, oil, or water [employer] threatened to shut off services in your [...] week 10/04/2022 How often do you attend [facility] or muslim services? 1 to 4 times per year 10/04/2022 Do you belong to any clubs o r organizations such as judaism groups, unions, fraternal or athletic groups, or [...] and heating? Not hard at all 10/04/2022 [facility] of Occupat ional Health - Occupational [...] Master's degree (e.g., MA, MS, Kanwal, MEd, SR TECHNICAL SALES CONSULTANT, TRICE) 01/07/2021 Sex and Gender Information Value [...] tablet by mouth daily. Vitamin C Complex [id number] ORAL Take 2 tablets by mouth daily. [...] Procedure Name Priority Date/Time Associated Diagnosis Comments DX SHOULDER RIGHT 2+ VIEWS RAD - Routine (most inpatients and all outpatients) 01/03/2024 7:44 AM CDT Painful Total Joint Arthroplasty Initial documented in this encounter Results * DX Shoulder Right 2+ Views (01/03/2024 [...] space. Glenohumeral arthritis. The bones aredemineralized. Snow [facility] PROCEDURES documented in this encounter Visit Diagnoses Diagnosis Painful Total Joint Arthroplasty Initial documented in this encounter Care Teams Quality Control Tech Relationship Specialty Start Date End Date Elsewhere, Pcp PCP - General Internal Medicine 10/01/22 documented as of this encounter
--- OUTSIDE RECORDS SUMMARY | 2024-01-26 13:02 | XMS_ITS | Clinical Summary ---
Author Organization [facility] Address [place], [place] [address] Care Team Providers Care Milieu Manager Name Role Phone BernardRosmery alonso Primary Care Provider Allergies Active Allergy Reactions Criticality Noted Date [...] Encounters Date Type Department Care Team Description 01/26/2024 Telephone [facility] [address] [place] [address] Rosmery Villeda DO 01/26/2024 Nurse Triage [facility] [address] [place] [address] Rosmery Villeda DO Post-op; Hand Pain/problem 12/20/2023 Orders Only [facility] Scanner 1 scan: (1-Ord) [facility], XRAY-CHEST PORTABLE, 12/20/2023 12/20/2023 Nurse Triage [facility] [address] [place] [address] Rosmery Villeda DO Shortness Of Breath (Constant SHORTNESS OF BREATH at rest and exertional) 12/18/2023 Orders Only [facility] Scanner 1 scan: (1-Ord) [facility] CHEST 2VW, 12/18/2023 from Last 3 Months Immunizations Name Administration Dates Next Due AMB Influenza, IIV3 (Age >=3 years)(Flu Clinic O nly) 04/25/2013,07/30/2009 COVID-19 vaccine (Moderna 100mcg/0.5mL) PF, MDV 05/21/2021 COVID-19 vaccine (Pfizer-Bio NTech 30mcg/0.3mL) 12YO+ ASHISH-SUCROSE PF, MDV 11/23/2021 COVID-19 vaccine (FootballScout 30mcg/0.3mL) P F, MDV 11/08/2020,10/07/2020 Influenza Virus, Unspecified 05/23/2002,06/27/20 Influenza, High-dose Inactivated 05/12/2016 Influenza, High-dose Quadrivalent [...] Sex Assigned at Female 06/21/2021 10:59 PM BINDER AND BOX BUILDER Gender Identity Female 06/21/2021 10:59 PM BINDER AND BOX BUILDER Sexual Orientation Straight 06/21/2021 10 :59 PM BINDER AND BOX BUILDER Obstetrics History Para Term AB IAB SAB Ectopic Multiple Livin g Live Births 2 2 0 0 0 0 0 0 0 0 Date Outcome GA Total Labor Labor/2nd/3rd Weight Sex Type Anes PTL Suze A1 A5 Name Clin Para Para Last Filed Vital Signs Vital Sign Reading Time Taken Comments Blood Pressure 138/70 07/18/2023 2:10 PM BINDER AND BOX BUILDER man ual Pulse 73 07/18/2023 1:17 PM BINDER AND BOX BUILDER Temperature 36.4 ??C (97.5 ??F) 10/19/2021 3:00 PM CD T Respiratory Rate - - Oxygen Saturation 100% 07/18/2023 1:17 PM BINDER AND BOX BUILDER Inhaled Oxygen Concentration - - Weight 49 kg (108 lb) 07/18/2023 1:17 PM BINDER AND BOX BUILDER Height 157.5 cm (5' 2) 07/18/2023 1:17 PM BINDER AND BOX BUILDER Body Mass Index 19.75 07/18/2023 1:17 PM BINDER AND BOX BUILDER Plan of Treatment Health Maintenance Due Date Last Done Comments COVID-19 vaccine series ( season) 2023 05/10/2023, 02/01/2023, 04/30/2022, Additional history exists Influenza for age 65+ 04/08/2024 05/10/2023 , [...] 45-75 Discontinued 07/20/2018 (Completed [facility]) Zoster (shingles) series for age 50+ Completed 01/15/2021, 06/30/2020, 05/21/2014, Additional history exists Hepatitis C screening for ag e 18-79 Completed 10/22/2021 Tdap Completed 06/12/2022, 10/31/2007 Procedures Procedure Name Priority Date/Time Associated Diagnosis Comments SCAN-RADIOLOGY REPORT 12/20/2023 12:00 AM CDT SCAN-RADIOLOGY REPORT 12/18/2023 12:00 AM CDT LIPID PANEL W REFLEX MEASURED LDL Routine 08/05/2023 9:37 AM BINDER AND BOX BUILDER Lipid screening XR MAMMO GEMMA BILAT SCREEN Routine 08/02/2023 9:30 AM BINDER AND BOX BUILDER Breast cancer screening by mammogram ANTI HCV Routine 10/22/2021 9:27 AM CDT Need for hepatitis C screening test COLONOSCOPY SCREENING Routine 10/04/2019 10:59 AM BINDER AND BOX BUILDER Screening for colon cancer XR DXA BONE DENSITY 2 SITES AXIAL Routine 02/18/2015 8:53 AM CDT Osteopenia from Last 3 Months or Most Recently Relevant to Health Maintenance Results * SCAN-RADIOLOGY REPORT (12/20/2023 12:00 AM CDT) Only the most recent of2 resultswithin the time period is included. Anatomical Region Laterality Modality Other Scanner OTHER * (ABNORMAL) LIPID PANEL W REFLEX MEASURED LDL (08/05/2023 9:37 AM BINDER AND BOX BUILDER) CHOLESTEROL,TOTAL 341(H) 100 - 199 mg/dL 08/05/2023 6:52 PM BINDER AND BOX BUILDER [facility] Comment: Cholesterol, Total Reference Ranges Desirable <200 mg/dL Borderline 200-239 mg/dL High >=240 mg/dL TRIGLYCERIDES 74 <150 mg/dL 08/05/2023 6:52 PM BINDER AND BOX BUILDER [facility] HDL CHOLESTEROL 117 >40 mg/dL 6:52 PM BINDER AND BOX BUILDER [facility] NON-HDL CHOLESTEROL 224(H) <145 mg/dl 08/05/2023 6:52 PM BINDER AND BOX BUILDER [facility] CHOL/HDL RATIO 2.91 <4.50 08/05/2023 6:52 PM BINDER AND BOX BUILDER [facility] LDL CHOLESTEROL 209(H) <=130 mg/dL 08/05/2023 6:52 PM BINDER AND BOX BUILDER [facility] VLDL CHOLESTEROL 15 <=30 mg/dL 08/05/2023 6:52 PM BINDER AND BOX BUILDER [facility] PROVIDER ORDERED STATUS RANDOM 08/05/2023 6:52 PM BINDER AND BOX BUILDER [facility] Blood BLOOD SPECIMEN / Unknown Venipuncture / Unknown 08/05/2023 9:37 AM BINDER AND BOX BUILDER 08/05/2023 9:37 AM BINDER AND BOX BUILDER Rosmery Villeda DO CHEMISTRY [facility] [address] [address], [place] * XR MAMMO GEMMA BILAT SCREEN [[id number]] (08/02/2023 9:30 AM BINDER AND BOX BUILDER) Anatomical Region Laterality Modality BREASTS, Breast Left, Breast Right Bilateral Mammography Impressions 08/02/2023 10:49 AM BINDER AND BOX BUILDER ??There is no radiographic evidence for malignancy. ??Recommend annual mammograms. MAMMOGRAM ASSESSMENT: ??ACR 1 Negative PATIENTS: You will also receive a letter with your examination results in an easy to read format. ??If you have questions about your results, please contact your referring provider. Narrative 08/02/2023 10:49 AM BINDER AND BOX BUILDER For Patients: As a result of the Cures Act, medical imaging exams and procedure reports are released immediately into your electronic medical record. You may view this report before your referring provider. If you have questions, please contact your health care provider. XR MAMMO GEMMA BILAT SCREEN [[id number]] CLINICAL HISTORY: ??This is an asymptomatic 72 y.o. patient. INDICATION FOR EXAM: Mammogram Screening. TECHNIQUE: CC & MLO views were obtained. ??This study was evaluated with the assistance of Computer-Aided Detection. Breast Tomosynthesis was used in interpretation. COMPARISON FILM: Yes 11/13/21 [facility] 08/11/17 [facility] FINDINGS: ??The breasts are heterogeneously dense, which may obscure small masses. There are no dominant masses, suspicious micro calcifications or areas of architectural distortion. Rosmery Villeda DO MAMMO * ANTI HCV (10/22/2021 9:27 AM CDT) HEPATITIS C ANTIBODY Non-React jesica Non-React jesica 10/22/2021 4:44 PM CDT [facility] Comment:Antibodies to HCV no t detected; does not exclude the possibility of exposure to HCV. Blood BLOOD SPECIMEN / Unknown Venipuncture / Unknown 10/22/2021 9:27 AM CDT 10/22/2021 9:28 AM CDT Rosmery Villeda DO SEND OUTS [facility] [address] [place] [address], * COLONOSCOPY SCREENING (10/04/2019 10:59 AM BINDER AND BOX BUILDER) Rosmery Villeda DO GI PROCEDURE ORD * (ABNORMAL) XR DXA BONE DENSITY 2 SITES (02/18/2015 8:53 AM CDT) Anatomical Region Laterality Modality Spine, HIPS, HIPL, HIPR Other Narrative 02/19/2015 11:38 AM CDT Please see scanned document for results of this study. Scotty Urrutia MD DEXA from Last 3 Months or Most Recently Relevant to Health Maintenance Care Teams Milieu Manager Relationship Specialty Start Date End Date Rosmery Villeda DO [address] [place] [address] PCP - General Family Practice 01/13/17
--- OUTSIDE RECORDS SUMMARY | 2024-01-26 13:02 | XMS_ITS | Encounter Summary ---
Author Organization [facility] Address [address] [place] [address] Care Team Providers Care Education Coordinator Name Role Phone Elsewhere, Pcp Primary Care Provider Unavailabl e Reason for Visit * Reason Onset Date Comments Pre-visit Intake 12/30/2023 Encounter Details Date Type Department Care Team (Latest Contact Info) Description 12/30/2023 10:00 AM CDT Clinical Communication Virtual Review in [place], [place] [address] [place] [address] Pre-visit Intake Social History Tobacco Use Types Packs/Day Years Used Date Smoking Tobacco: Former Cigarettes Q uit: 1975 Passive Smoke Exposure: Past Smokeless Tobacco: Never [facility] Utilities Answer Date Recorded In the past 12 months has [facility] [employer], gas, oil, or water [employer] threatened to shut off services in your [...] often do you attend chur ch or zoroastrian services? 1 to 4 times per year [...] and heating? Not hard at all 10/04/2022 [facility] of Occupat ional Health - Occupational [...] your living situation today? I have a [facility] place to live 12/27/2023 Education Answer Date Recorded What is the highest level of school you have completed or the highest degree you have received? Master's degree (e.g., MA, MS, Kanwal, MEd, SHOE PARTS MOLDER, TRICE) 01/07/2021 Sex and Gender Information Value Date Recorded Sex Assigned at Female 04/03/2021 10:50 AM CDT Gender Identity Female 04/03/2021 10:50 AM CDT Sexual Orientation Not on file documented as of this encounter Plan of Treatment Not on file documented as of this encounter Visit Diagnoses Not on filedocumented in this encounter Care Teams Education Coordinator Relationship Specialty Start Date End Date Elsewhere, Pcp PCP - General Internal Medicine 10/01/22 documented as of this encounter
--- OUTSIDE RECORDS SUMMARY | 2024-01-26 13:02 | XMS_ITS | Encounter Summary ---
Author Organization [facility] Address [address] [place] [id number] Care Team Providers Care Pediatric Rn Name Role Phone Elsewhere, Pcp Primary Care Provider Unavailabl e Reason for Visit * Outpatient (Routine) - Closed Specialty Diagnoses / Procedures Referred By Shiva alonso Referred To Contact Orthopedic Surgery Snow Stewart M.D. [address] [place] [phone] [facility] Referral ID Status Reason Start Date Expiration Date Visits Re quested Visits Authorized [id number] Closed 08/11/2023 08/10/2026 1 1 Encounter Details Date Type Department Care Team (Late st Contact Info) Description 01/03/2024 8:15 AM CDT Office Visit Department of Orthopedic Surgery in [place], [place] [address] [place] [phone] Hector Gonzales M.D. [address] [place] [phone] Pain Shoulder Right (Primary Dx) Social History Tobacco Use Types Packs/Day Years Used Date Smoking Tobacco: Former Cigarettes 0.5 6.8 0 10/07/1967 - 06/22/1976 Passive Smoke Exposure: Past Smokeless Tobacco: Never Comments:Situational in late teens early 20s except pregnancies Alcohol Use Standard Drinks/Week Comments Yes 2 (1 standard drink = 0.6 oz pur e alcohol) [facility] Utilities Answer Date Recorded In the [...] often do you attend chur ch or scientologist services? 1 to 4 times per year 10/04/2022 Do you belong to any clubs o r organizations such as alevism groups, unions, fraternal or athletic groups, or [...] and heating? Not hard at all 10/04/2022 [facility] Occupational Stress Questionnaire Answer Date [...] living situation today? I have a [facility] place to live 12/27/2023 Education Answer Date Recorded What is the highest level of school you have completed or the highest degree you have received? Master's degree (e.g., MA, MS, Kanwal, MEd, [employer], [employer]) 01/07/2021 Sex and Gender Information Value Date Recorded Sex Assigned at Female 04/03/2021 10:50 AM CDT Gender Identity Female 04/03/2021 10:50 AM CDT Sexual Orientation Not on file documented as of this encounter H&P Notes * Hector Gonzales M.D. - 01/03/2024 8:15 AM CDT SUBJECTIVE Taisha Ramos is a pleasant 73 y.o. female who returns today for evaluation of right shoulder pain. They note continued significant shoulder pain. PHYSICAL EXAMINATION General: Patient is in no acute distress. Shoulder ROM: Active elevation is 60 Passive elevation is 80 External rotation to 0 Internal rotation to Iliac crest Strength: Flexion 4 Abduction 3+ External rotation 3 Internal rotation 3- There is crepitus in the shoulder and pain at the end range of motion. The shoulder is stable on examination. IMPRESSION/REPORT/PLAN IMAGING STUDIES Radiographs demonstrate severe glenohumeral arthritis. #1 right severe glenohumeral arthritis We discussed treatment options. We discussed operative and nonoperative measures. We discussed risks, benefits, and alternatives of shoulder arthroplasty with the patient. Patient does understand thedecision between hemiarthroplasty, total shoulder arthroplasty, and reverse arthroplasty is an intraoperative decision. We also reviewed postoperative rehabilitation and restrictions. Patient clearlyunderstands the possibility of continued pain and limitation of function despite operative intervention. Patient understands the pain and function could be worse after surgery. Again, risks, benefits, and alternatives of surgery were discussed with the patient, and they do wish to proceed. Patient does not have a living will. They do wish to be resuscitated. They do consent to a blood transfusion. They do understand surgery will be done in a team setting. INFORMED CONSENT Discussed the risks, benefits, and alternatives of the procedure and of possible blood transfusion.We discussed the potential for overlapping surgery and how we manage this effectively. Discussed advance directives and the necessity of other members of the healthcare team participating in the procedure. All questions answered and consent given. We reviewed the fact that the patient's surgery may involve the use of a medical parasitologist made by a company with which I or one of my partners have collaborated to design, develop, or improve orthopedic implants, instruments, or products. Both the [facility] and the individual surgeons involved receive royalty payments from the use of those specific devices at other institutions, but no royalties or any other payments are paid for the use of those devices with any [facility] patient. The clinical rationale for the use of those devices as well as the availability and applicability of alternative devices was reviewed. The patient understands that the final decision for the use of a specific medical parasitologist often is made at the time of surgery. All of the patient's questions were answered; the patient understands and agrees with my approach to device selection and wants to proceed. documented in this encounter Plan of Treatment Not on file documented as of this encounter Visit Diagnoses Diagnosis Pain Shoulder Right- Primary documented in this encounter Care Teams Pediatric Rn Relationship Specialty Start Date End Date Elsewhere, Pcp PCP - General Internal Medicine 10/01/22 documented as of this encounter
== END 2024-01-26 12:57 | disposition home or self-care (01) ==
LOC: NFLDUCREF 12:58
PROVIDERS: PCP Family Medicine; Visit Provider Nurse Practitioner Family
DX: G89.18 Other acute postprocedural pain (principal)
CPT/HCPCS: 85379